=== PATIENT | female | born 1985 | race African-American/Black ===

== ENCOUNTER 2016-11-19 16:04 | Emergency (ER) | payer OTHER ==
[2016-11-19] MEDS ORDERED: ASPIRIN PO STA (16:32)
[2016-11-19 17:16] LABS: MANUAL DIFF NEEDED? NO
[2016-11-19 17:18] LABS: BASO% 0.1 % (0.0-0.8); HEMATOCRIT 38.2 % (37.0-47.0); IMM GRAN# 0.01 X1000 (0.0-0.04); IMM GRAN% 0.1 % (0.0-0.5); LYMPH# 2.05 X1000 (1.2-3.4); LYMPH% 18.5 % (20.5-51.1); MCH 29.3 PG (27-31); MCV 86.2 FL (81-99); MONO# 0.27 X1000 (0.11-0.59); MONO% 2.4 % (1.7-9.3); MPV 10.2 FL (7.4-10.4); NEUT% 78.9 % (42.2-75.2); PLT 287 X1000 (130-400); RBC 4.43 XMIL (4.2-5.4)
[2016-11-19 17:42] LABS: AGAP 12; ALBUMIN 4.4 g/dL (3.5-5.0); ALKALINE PHOSPHATASE 53 U/L (32-104); BUN 6 mg/dL (8-22); CALCIUM 9.6 mg/dL (8.8-10.2); CHLORIDE 94 mmol/L (98-107); CK PROFILE 50 U/L (24-173); COSMO 269; GOT 19 U/L (10-30); GPT 28 U/L (10-36); POTASSIUM 4.2 mmol/L (3.5-5.1); SODIUM 132 mmol/L (136-145); TCO2 26 mmol/L (25-35); TOTAL PROTEIN 8.6 g/dL (6.3-8.3)
--- NOTE | 2016-11-19 17:52 | ED EKG INTERP ---
EKG Interpretation - EKG Time of EKG reading by physician:: 16:55 EKG Read and Signed by:: Rogerio Jose EKG Interpretation (*Must complete 3 of following elements*): Normal Rate: 89 Rhythm: NSR [place]: normal QRS: normal [place] Interval: normal ST Wave: normal Attestation - Scribe Verification/Attestation Scribe:: Kirk Antoine Acting as Scribe for:: Rogerio Jose Scribe documention review:: This chart was documented by a scribe and accurately reflects the service the provider performed and the decisions made by the provider.
--- NOTE | 2016-11-19 18:52 | EKG Report ---
Test Performed on : 11/19/2016 4:49:12 PM Test Reason : CP Blood Pressure : / mmHG Vent. Rate : 089 BPM Atrial Rate : 089 BPM P-R Int : 160 ms QRS Dur : 066 ms QT Int : 364 ms P-R-T Axes : 066 086 022 degrees QTc Int : 442 ms Normal sinus rhythm. Normal ECG When compared with ECG of 14-OCT-2015 14:22, No significant change was found Unconfirmed Result
--- NOTE | 2016-11-19 19:13 | PROVIDER DOCUMENTATION ---
HPI-General Adult - General Chief Complaint: Nausea/Vomiting Stated Complaint: SOB V/N/D HEADACHE Time Seen by Provider: 11/19/16 18:59 Allergies/Adverse Reactions: Patient Allergies Allergy/AdvReac Type Severity Reaction Status Date / Time diphenhydramine HCl * AdvReac Unknown Verified 11/19/16 16:28 [From Benadryl] Home Medications: Methotrexate 20 mg PO 11/19/16 Prednisone 20 mg PO DAILY 11/19/16 - History of Present Illness -Gen Adult Nature of Presenting Problems: 31 YOBLKF PRESENTS TO ED WITH C/O PT STATES C/P VOMITING X 2 DAYS. PT STATES VOMITING FOR 1 DAY. PT STATES C/P IS MORE BURNING TODAY. PT STATES 1 EPISODE OF VOMIT TODAY AND 3 OR 4 EPISODES OF DIARRHEA TODAY. PT STATES NOTHING TO EAT TODAY. PRESENTS EPIGASTRIC TENDERNESS. Location of Pain/Injury: reports: generalized Pain Radiation: reports: no radiation Quality of Pain: reports: aching, burning Severity: reports: mild Onset/Duration: reports: 2 days ago Timing: reports: still present Context/Activities at Onset: reports: light activity Modifying Factors: improves with: nothing Associated Symptoms: reports: chest pain (BURNING NOW), diarrhea, nausea, vomiting Similar Symptoms Previously?: No Recently seen or treated by another doctor?: No Review of Systems - Adult - REVIEW OF SYSTEMS - ADULT Constitutional: denies: chills, fever Eyes: reports: no symptoms reported Ears, Nose, Mouth & Throat: reports: no symptoms reported Cardiovascular: reports: chest pain (BURNING). denies: palpitations, syncope Respiratory: denies: cough, shortness of breath, wheezing Gastrointestinal: reports: abdominal pain, diarrhea, nausea, vomiting Genitourinary: reports: no symptoms reported Musculoskeletal: denies: back pain, neck pain Integumentary: reports: no symptoms reported Neurological: denies: dizziness/vertigo, headache/migraines, syncope Psychiatric: reports: no symptoms reported Endocrine: reports: no symptoms reported Hematologic/Lymphatic: reports: no symptoms reported Allergic/Immunologic: reports: no symptoms reported All Other Systems: Reviewed and Negative Past History - Adult - PAST MEDICAL HISTORY-ADULT Review of Records: reports: Nursing Assessment Review, Medications Reviewed Endocrine/Immune: reports: Diabetes - PRIOR SURGERIES/PROCEDURES Surgical/Procedure History: reports: none - IMMUNIZATION STATUS Childhood Immunizations: See Nurse Assessment Flu Vaccine: See Nurse Assessment - SOCIAL HISTORY Smoking: quit greater than 1 year, cigarettes Substance Use: alcohol, marijuana Alcohol Use Frequency: occasionally Living Situation: family Physical Exam-General - CONSTITUTIONAL General Appearance: alert, mild distress - EYES Eyes: PERRL/EOMI, pink conjunctivae - HEAD, EARS, NOSE, MOUTH & THROAT HENMT: normocephalic/atraumatic, moist mucous membranes - NECK Neck: non-tender, full range of motion, supple - RESPIRATORY Respiratory: chest non-tender, lungs clear, normal breath sounds - CARDIOVASCULAR Cardiovascular: normal peripheral pulses, regular rate, rhythm - GASTROINTESTINAL (ABDOMEN) Abdominal Exam: normal bowel sounds, soft, tenderness (EPIGASTRIC) - LYMPHATIC Lymphatic: no adenopathy - MUSCULOSKELETAL Back Exam: normal inspection, no CVA tenderness, no vertebral tenderness Extremity: normal range of motion, non-tender - SKIN Integumentary: normal color, normal turgor, warm/dry - NEUROLOGIC Neurologic: grossly normal - PSYCHIATRIC Psych/Mental Status: oriented x 3 Progress - XRAY 1 XRAY: Bilateral XRAY Study: Chest XRAY Interpretation: NAD Departure - Departure Time of Disposition Order: 21:43 DIAGNOSIS: Poorly controlled diabetes mellitus, Gastroenteritis Disposition: HOME 01 Certified Medical Emergency: Emergent Condition: Fair Additional Instructions: ED Follow Up Instructions: You have been treated by a care provider in the Emergency Department. These instructions are being provided to you so you can have an understanding of how to care for yourself upon discharge. Upon discharge from the Emergency Department, you are responsible for making arrangements for follow-up care by a physician of your choice. Take all prescribed medications as directed. Return to the Emergency Department immediately for any new or worsening symptoms. You may call the Physician Referral phone number at [phone] to obtain a list of Physicians who are taking new patients.see family doctor as scheduled. Limit starches and sugars in diet. Eat mostly vegetables (NOT corn potatoes), beans, lean meat and fresh fruit (not bananas) Prescriptions: Ciprofloxacin HCl [Cipro] 500 mg PO BID #14 tablet Metformin HCl [Glucophage] 1,000 mg PO BID #60 tablet Glyburide 2.5 mg PO QAM #30 tablet Diphenoxylate/Atropine [Lomotil] 1 - 2 each PO Q6H PRN PRN #20 tablet PRN Reason: Diarrhea Promethazine [Phenergan] 1 - 2 tab PO Q6H PRN PRN #18 tablet PRN Reason: Vomiting Ondansetron HCl [Zofran] 1 - 2 tab PO Q6H PRN PRN #15 tablet PRN Reason: Vomiting Referrals: None,PCP [Primary Care Provider] - Forms: Return to School/Parent Work Instructions: Ondansetron tablets, Atropine; Diphenoxylate tablets, Promethazine tablets, Metformin tablets, Glyburide tablets, Ciprofloxacin tablets Attestation - Scribe Verification/Attestation Scribe:: Tyson Ennis Acting as Scribe for:: Augustin Bose Scribe documention review:: This chart was documented by a scribe and accurately reflects the service the provider performed and the decisions made by the provider.
[2016-11-19] MEDS ORDERED: NS 1,000 ML IV PRN (19:20)
[2016-11-19] MEDS ORDERED: SODIUM CHLORIDE 0.9% INJ ONE ×2 (19:20→19:22)
[2016-11-19] MEDS ORDERED: TORADOL IV ONE (19:20)
[2016-11-19] MEDS ORDERED: PHENERGAN IV ONE (19:20)
[2016-11-19] MEDS ORDERED: PEPCID IV ONE (19:22)
[2016-11-19] MEDS ORDERED: LOMOTIL PO ONE (19:22)
[2016-11-19] MEDS ORDERED: LEVAQUIN PO ONE (20:12)
[2016-11-19 20:19] LABS: URINE CULTURE PL NEEDED? NO; URINE SOURCE CLEAN CATCH
[2016-11-19 20:33] LABS: HEMOGLOBIN A1C 8.1 % (4.8-6.0)
[2016-11-19 20:36] LABS: BILIRUBIN URINE NEGATIVE (NEGATIVE); BLOOD URINE NEGATIVE (NEGATIVE); CLARITY CLEAR (CLEAR); COLOR YELLOW; GLUCOSE URINE NEGATIVE (NEGATIVE); LEUKOCYTES URINE NEGATIVE (NEGATIVE); NITRITE URINE NEGATIVE (NEGATIVE); PROTEIN URINE NEGATIVE (NEGATIVE); SP GRAVITY URINE 1.005; UROBILINOGEN URINE NORMAL
[2016-11-19 20:41] LABS: URINE EPITHELIAL CELLS <10 /HPF (<10); URINE RBC <10 /HPF (<10); URINE WBC <10 /HPF (<10)
[2016-11-19] MEDS ORDERED: MORPHINE IV ONE (21:20)
[2016-11-19] MEDS ORDERED: GLUCOPHAGE PO ONE (21:20)
[2016-11-19 22:05] VITALS: BP 158/97
--- NOTE | 2016-11-20 09:06 | Diag Imaging Result Document ---
PROCEDURE NAME: CHEST-2 VIEWS - 11/19/2016 CHEST, TWO VIEWS: COMPARISON: 04/02/2016. INDICATION: Shortness of breath. FINDINGS: A linear metallic density projects over the mid neck. The cardiomediastinal silhouette is within Normal limits. There is evidence of previous granulomatous infection. No acute infiltrate or effusion is appreciated. IMPRESSION: No acute cardiopulmonary abnormality.
== END 2016-11-19 22:05 | disposition home or self-care (01) ==
LOC: P.ED 16:04
DX: K52.9 Noninfective gastroenteritis and colitis, unspecified (principal); E11.65 Type 2 diabetes mellitus with hyperglycemia; R11.2 Nausea with vomiting, unspecified; R07.89 Other chest pain; R19.7 Diarrhea, unspecified; R10.816 Epigastric abdominal tenderness; R06.02 Shortness of breath; R51 Headache; Z79.52 Long term (current) use of systemic steroids; Z79.899 Other long term (current) drug therapy; Z87.891 Personal history of nicotine dependence
CPT/HCPCS: 71020; 80053; 81001; 82550; 83036; 83880; 84484; 85025; 93005; 96361; 96374; 96375; J1885; J2270; J2550; J7030

== ENCOUNTER 2017-01-14 23:13 | Inpatient (IN) ==
[2017-01-14] MEDS ORDERED: ZOFRAN IV ONE (23:41)
[2017-01-14] MEDS ORDERED: TYLENOL PO ONE (23:41)
[2017-01-14] MEDS ORDERED: DILAUDID IV ONE (23:41)
[2017-01-14] MEDS ORDERED: NS 1,000 ML IV ONE (23:42)
--- NOTE | 2017-01-14 23:45 | PROVIDER DOCUMENTATION ---
HPI-General Adult - General Source: patient - History of Present Illness -Gen Adult Nature of Presenting Problems: 31 year old F presents to the ED via EMS. Pt states that she began developing multiple pustules to bilateral arms and legs 1 week ago. PT bagen today with a fever and body aches. PT states that she has some kind of autoimmune disease that she can not remember the name of. Pt states that she was to follow up with her PCP in [place] but was unable to due to her car not working. Location of Pain/Injury: reports: none Pain Radiation: reports: no radiation Quality of Pain: reports: aching Severity: reports: mild Onset/Duration: reports: 1 week ago Timing: reports: still present Context/Activities at Onset: reports: none Modifying Factors: improves with: nothing Associated Symptoms: reports: fever/chills, muscle aches Similar Symptoms Previously?: No Recently seen or treated by another doctor?: No <Argelia Carlson - Last Filed: 01/14/17 23:40> <Brian Chin - Last Filed: 01/15/17 01:47> - General Chief Complaint: Shortness of Breath Stated Complaint: sob, generalized pain throughout entire body Time Seen by Provider: 01/14/17 23:18 Allergies/Adverse Reactions: Patient Allergies Allergy/AdvReac Type Severity Reaction Status Date / Time diphenhydramine HCl * AdvReac Unknown Verified 01/14/17 23:37 [From Rhina] Home Medications: Home Medication List Medication Instructions Recorded Confirmed Last Taken Type Metformin [Glucophage] 1,000 mg PO BID CC #120 tablet 06/19/15 04/02/16 Rx Methotrexate 20 mg PO 11/19/16 01/14/17 History Prednisone 20 mg PO DAILY 11/19/16 11/19/16 01/14/17 History Furosemide [Lasix] 1 tab PO DAILY 01/14/17 01/14/17 01/14/17 History Review of Systems - Adult - REVIEW OF SYSTEMS - ADULT Constitutional: reports: fever. denies: chills Eyes: reports: no symptoms reported Ears, Nose, Mouth & Throat: denies: ear pain, throat pain Cardiovascular: reports: no symptoms reported Respiratory: reports: no symptoms reported Gastrointestinal: denies: nausea, vomiting Genitourinary: reports: no symptoms reported Musculoskeletal: reports: no symptoms reported Integumentary: reports: skin sores/ulcer. denies: skin thickening Neurological: denies: dizziness/vertigo, headache/migraines Psychiatric: reports: no symptoms reported Endocrine: reports: no symptoms reported Hematologic/Lymphatic: reports: no symptoms reported Allergic/Immunologic: reports: no symptoms reported All Other Systems: Reviewed and Negative <Argelia Carlson - Last Filed: 01/14/17 23:40> Past History - Adult - PAST MEDICAL HISTORY-ADULT Review of Records: reports: Nursing Assessment Review, Medications Reviewed Major Childhood Illnesses: reports: denies history Endocrine/Immune: reports: Diabetes Additional History: auto immune inflammatory disease - PRIOR SURGERIES/PROCEDURES Surgical/Procedure History: reports: none - IMMUNIZATION STATUS Childhood Immunizations: See Nurse Assessment Flu Vaccine: See Nurse Assessment - SOCIAL HISTORY Smoking: quit greater than 1 year Substance Use: none presently/history of abuse Alcohol Use Frequency: occasionally <Argelia Carlson - Last Filed: 01/14/17 23:40> Physical Exam-General - PHYSICAL EXAM-ADULT Initial Vital Signs Reviewed: Yes - CONSTITUTIONAL General Appearance: appears well, alert, no apparent distress, obese (morbidly obese) - RESPIRATORY Respiratory: chest non-tender, lungs clear, normal breath sounds - CARDIOVASCULAR Cardiovascular: normal peripheral pulses, no edema, tachycardia - GASTROINTESTINAL (ABDOMEN) Abdominal Exam: non tender, soft - SKIN Integumentary: other (multiple pustules to arms and legs) - PSYCHIATRIC Psych/Mental Status: normal mood/affect, normal thought content, normal thought process, oriented x 3 <Argelia Carlson - Last Filed: 01/14/17 23:40> Departure <Argelia Carlson - Last Filed: 01/14/17 23:40> - Departure Time of Disposition Order: 01:46 Certified Medical Emergency: Emergent <Brian Chin - Last Filed: 01/15/17 01:47> - Departure DIAGNOSIS: Pustular dermatitis Disposition: ADMITTED INPATIENT 09 Condition: Fair Attestation - Scribe Verification/Attestation Scribe:: Argelia Carlson Acting as Scribe for:: Brian Chin Scribe documention review:: This chart was documented by a scribe and accurately reflects the service the provider performed and the decisions made by the provider. <Argelia Carlson - Last Filed: 01/14/17 23:40> Physician Attestation - Physician Attestation I, the provider, attest to the following statement:: Brian Chin Physician documentation Attestation:: This documentation recorded by the scribe accurately reflects the service I personally performed and the decisions made by me. <Argelia Carlson - Last Filed: 01/14/17 23:40>
[2017-01-15 00:01] LABS: BASO% 0.1 % (0.0-0.8); EOS# 0.03 X1000 (0.0-0.7); EOS% 0.1 % (0.0-10.0); HEMATOCRIT 33.1 % (37.0-47.0); IMM GRAN% 0.5 % (0.0-0.5); LYMPH# 3.29 X1000 (1.2-3.4); LYMPH% 15.1 % (20.5-51.1); MANUAL DIFF NEEDED? YES; MCH 27.6 PG (27-31); MCHC 33.2 g/dL (33-37); MCV 83.2 FL (81-99); MONO# 1.04 X1000 (0.11-0.59); MONO% 4.8 % (1.7-9.3); MPV 10.4 FL (7.4-10.4); NEUT% 79.4 % (42.2-75.2); PLT 444 X1000 (130-400); RBC 3.98 XMIL (4.2-5.4)
[2017-01-15 00:09] LABS: INR 1.15 (0.86-1.15)
[2017-01-15 00:10] LABS: PTT PL 39.4 Seconds (22.6-43.9)
[2017-01-15 00:11] LABS: BE 3.4 mmoll (-3.0-3.0); BLOOD TYPE ARTERIAL; METHB 1.3 % (0.0-1.5); O2(CT) 14.1 mL/dL (15.0-23.0); PCO2(98.6) 34 mmHg (35-45); PO2(98.6) 63 mmHg (60-100); SAMPLE BLOOD; SAO2 93.9 % (95.0-100.0)
[2017-01-15] MEDS ORDERED: DILAUDID IV ONE ×2 (00:15→01:20)
[2017-01-15] MEDS ORDERED: LOPRESSOR 10 MG in NS 50 ML IV ONE (00:16)
[2017-01-15 00:19] LABS: ALLEN TEST NO; DRAW SITE R BRACHIAL; MODALITY ROOM AIR
[2017-01-15] MEDS ORDERED: LOPRESSOR ONE (00:19)
[2017-01-15] MEDS ORDERED: NS 50 ML ONE (00:20)
[2017-01-15 00:30] LABS: BANDS 1 % (0-1); LYMPHS 14 % (21-51); MONO 5 % (1-9)
[2017-01-15 00:42] LABS: AGAP 20; ALBUMIN 3.7 g/dL (3.5-5.0); ALKALINE PHOSPHATASE 84 U/L (32-104); BUN 7 mg/dL (8-22); CALCIUM 9.4 mg/dL (8.8-10.2); CHLORIDE 85 mmol/L (98-107); CK PROFILE 573 U/L (24-173); COSMO 261; GOT 27 U/L (10-30); GPT 24 U/L (10-36); POTASSIUM 4.3 mmol/L (3.5-5.1); SODIUM 129 mmol/L (136-145); TCO2 25 mmol/L (25-35); TOTAL PROTEIN 8.5 g/dL (6.3-8.3)
[2017-01-15] MEDS ORDERED: ZOSYN 3.375 GM/NS 50 ML IV ONE (00:44)
[2017-01-15] MEDS ORDERED: VANCOMYCIN 1 GM/NS 250 ML IV ONE (00:45)
[2017-01-15 00:58] LABS: CK INDEX 0.2 (0.0-2.5)
[2017-01-15 01:13] LABS: URINE SOURCE CATH
[2017-01-15] MEDS ORDERED: TORADOL IV ONE (01:20)
[2017-01-15 01:41] LABS: BILIRUBIN URINE NEGATIVE (NEGATIVE); BLOOD URINE 2+ (NEGATIVE); CLARITY CLEAR (CLEAR); COLOR YELLOW; GLUCOSE URINE NEGATIVE (NEGATIVE); LEUKOCYTES URINE NEGATIVE (NEGATIVE); NITRITE URINE NEGATIVE (NEGATIVE); PROTEIN URINE TRACE mg/dL (NEGATIVE); UROBILINOGEN URINE NORMAL
[2017-01-15 01:44] LABS: URINE CULTURE PL NEEDED? YES; URINE EPITHELIAL CELLS <10 /HPF (<10); URINE RBC <10 /HPF (<10); URINE WBC <10 /HPF (<10)
[2017-01-15] MEDS ORDERED: NS 1,000 ML IV ONE (02:19)
[2017-01-15] MEDS ORDERED: TYLENOL PO PRN (03:17)
[2017-01-15] MEDS ORDERED: DILAUDID IV PRN (03:17)
[2017-01-15] MEDS ORDERED: DILAUDID ONE (06:33)
--- NOTE | 2017-01-15 08:32 | Diag Imaging Result Document ---
PROCEDURE NAME: CHEST-PORTABLE - 01/14/2017 CHEST, SINGLE VIEW: INDICATION: Fever. COMPARISON: 11/19/2016. FINDINGS: There has been a suboptimal inspiratory result. The heart size is within normal limits. No infiltrates or effusions are appreciated. There is linear scarring in the left mid lung zone. IMPRESSION: No acute abnormalities.
[2017-01-15] MEDS ORDERED: FLUZONE QUAD 2016-2017 SYRINGE IM ONE (08:36)
[2017-01-15] MEDS ORDERED: PNEUMOVAX 23 IM ONE (08:36)
[2017-01-15] MEDS: GLUCOPHAGE PO SCH ×2 (09:04→16:47)
[2017-01-15] MEDS: LASIX PO SCH (09:04)
[2017-01-15] MEDS: PREDNISONE PO SCH (09:04)
[2017-01-15] MEDS: TORADOL IV PRN (09:04)
[2017-01-15] MEDS ORDERED: VANCOMYCIN IV PER PHARMACY MISC SCH (10:15)
[2017-01-15] MEDS: ZOSYN 3.375 GM/NS 50 ML IV SCH ×3 (10:57→21:14)
--- NOTE | 2017-01-15 12:04 | HISTORY AND PHYSICAL ---
CHIEF COMPLAINT: Shortness of breath. HISTORY OF PRESENT ILLNESS: This is a 31-year-old female with a chronic autoimmune disease that is not quite characterized. She is on methotrexate and prednisone. She is followed by rheumatology in [place], apparently Dr. Godinez as well, although I do not think she has seen him frequently. 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 She came in because of the shortness of breath and pain in her left leg. Workup in the ER was really unremarkable except she has a diffuse rash, pustular rash over both arms, lower extremities, mostly anterior, upper chest, upper back. Apparently she has had this before associated with her other medications. She has had some subjective fevers and chills and again the shortness of breath without cough and without chest pain. Again, workup in the ER was unremarkable as far as labs except for a white count of 21,000, a little bit of a low sodium at 129. The rest of her laboratory work was unrevealing. The patient was admitted for diffuse pustular rash with cellulitis. PAST MEDICAL HISTORY: 1. 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 We are trying to get old records from [facility]. 2. Diabetes. 3. Hypertension. 4. Morbid obesity. 5. No history of heart failure that I am aware. FAMILY HISTORY: Positive for diabetes and hypertension. SOCIAL HISTORY: No tobacco or ethanol. She lives with her sister. I do not think she is working regularly at this point. I think limited because of her autoimmune issues. ALLERGIES: Benadryl apparently. MEDICATIONS: She is on methotrexate 2.5 daily. She is on prednisone 20 daily, metformin 1 g b.i.d., lisinopril 10 daily, Lasix 20 daily. PAST SURGICAL HISTORY: Denies. REVIEW OF SYSTEMS: Otherwise negative x10 point. PHYSICAL EXAMINATION: VITAL SIGNS: Blood pressure 136/79, heart rate 65, respiratory rate 18, temperature 98.9 degrees, 100% on 2 L. GENERAL: Obese female in mild distress secondary to pain and just overall anxiety. EYES: Pupils equal, round, reactive to light. Extraocular movements intact. EARS, NOSE, THROAT: Moist mucous membranes. NECK: Supple. CARDIOVASCULAR: Regular rate and rhythm. No murmurs, gallops, or rubs. PULMONARY: Bilateral breath sounds. Clear to auscultation. GI: Soft, nontender, nondistended. Bowel sounds are positive. EXTREMITIES: No clubbing or cyanosis. LYMPHATICS: No peripheral edema. NEUROLOGICAL: Nonfocal. LABORATORY DATA: Sodium 129. Creatine kinase 573. White count is 21,000, hemoglobin and hematocrit of 11 and 33, platelets of 444,000. Urine was clear. Blood gas: She was not hypoxic. PaO2 63 on room air with a saturation of 94%. Interesting BRIDGER and rheumatoid factor have been negative. Chest x-ray was clear. PROBLEM LIST: 1. This is a 31-year-old female on chronic steroids, who presents with a diffuse pustular rash which is likely a secondary infection. I do not think it is a primary immunological phenomenon. It just looks like folliculitis, although fairly diffuse. Some of the lesions are umbilicating which would suggest other things such as nummular eczema but it is most likely a staphylococcal infection. We will continue antibiotics. She has been started on vancomycin and Zosyn. Continue pain control, wound care, and we will follow clinically. 2. Diabetes. We will continue to follow blood sugars, sliding scale. Continue her metformin and monitor. 3. Hypertension. Appears to be stable. We will continue regular medications. 4. Her dyspnea issues, she is not hypoxic. Chest x-ray is clear. She does report some weakness on the left side and pain in the left leg, so we will continue to monitor that. We may consider if not much better to ultrasound her leg and will clinically follow.
[2017-01-15] MEDS: LOVENOX SUBQ SCH (14:24)
[2017-01-15] MEDS ORDERED: NS 500 ML ONE (14:29)
[2017-01-15] MEDS: DILAUDID IV PRN ×2 (14:32→21:22)
[2017-01-15] MEDS: VANCOMYCIN 2,000 MG in NS 500 ML IV SCH ×2 (14:32→23:13)
[2017-01-16] MEDS: DILAUDID IV PRN ×6 (03:37→21:33)
[2017-01-16] MEDS: ZOSYN 3.375 GM/NS 50 ML IV SCH ×4 (04:22→22:05)
[2017-01-16 06:19] LABS: HEMATOCRIT 27.1 % (37.0-47.0); HEMOGLOBIN 8.8 g/dL (12.0-16.0); MCH 27.6 PG (27-31); MCHC 32.5 g/dL (33-37); MPV 10.2 FL (7.4-10.4); RBC 3.19 XMIL (4.2-5.4)
[2017-01-16 06:50] LABS: AGAP 11; BUN 7 mg/dL (8-22); CALCIUM 8.9 mg/dL (8.8-10.2); CHLORIDE 95 mmol/L (98-107); COSMO 262; POTASSIUM 3.6 mmol/L (3.5-5.1); SODIUM 131 mmol/L (136-145); TCO2 25 mmol/L (25-35)
[2017-01-16] MEDS ORDERED: PRINIVIL PO SCH (09:00)
[2017-01-16] MEDS: TORADOL IV PRN ×2 (09:33→15:15)
[2017-01-16] MEDS: PREDNISONE PO SCH (09:34)
[2017-01-16] MEDS: GLUCOPHAGE PO SCH ×2 (09:34→18:11)
[2017-01-16] MEDS: LASIX PO SCH ×2 (09:34→15:15)
[2017-01-16] MEDS ORDERED: NS 500 ML ONE (13:44)
[2017-01-16] MEDS ORDERED: PRINIVIL PO ONE (14:02)
--- NOTE | 2017-01-16 14:40 | PROGRESS NOTE ---
DATE: 01/16/2017 SUBJECTIVE: The patient has no focal complaints. OBJECTIVE: Vital Signs: Blood pressure 178/81, heart rate of 103, respiratory rate of 20, temperature 98.4 degrees. Cardiovascular: Regular rate and rhythm. Pulmonary: Bilateral breath sounds. Clear to auscultation. Gastrointestinal: Soft, nontender, nondistended. Bowel sounds are positive. Extremities: No clubbing or cyanosis. Lymphatics: No peripheral edema. Neurological: Nonfocal. LABORATORY DATA: Her white count is still elevated, but improved on antibiotics. White count is down to 16. Hemoglobin and hematocrit are 8 and 27, with normal indices. Chemistries are okay. PROBLEM LIST: 1. Pustular diffuse cellulitis mostly focused on her legs. Cultures have been obtained. Vancomycin and Zosyn are the antibiotics. Day 2 on each of those and we will continue to follow. 2. Autoimmune disease. I am still waiting on records. She is on prednisone and methotrexate. 3. Hypertension, which is not improved. We are going to increase her lisinopril to 20 daily and see how she does, and I am going to put in some p.r.n. clonidine. 4. Generalized weakness. She is very difficult to motivate. She will not get up out of bed. I do not know how much of this is psychological versus true weakness, but the patient will not even roll over. Granted, you know she is probably in some significant degree of discomfort. We will continue to follow. She is on prednisone, which she has been on a steady dose of that. I am awaiting records to see if we can titrate down on that at all.
[2017-01-16] MEDS: LOVENOX SUBQ SCH (15:18)
[2017-01-16] MEDS: VANCOMYCIN 2,000 MG in NS 500 ML IV SCH ×2 (15:55→23:13)
[2017-01-16] MEDS: PRINIVIL PO SCH (18:12)
[2017-01-17] MEDS: VANCOMYCIN 2,000 MG in NS 500 ML IV SCH ×4 (01:05→18:39)
[2017-01-17] MEDS: ZOSYN 3.375 GM/NS 50 ML IV SCH ×2 (04:08→13:26)
[2017-01-17] MEDS: DILAUDID IV PRN ×5 (04:08→20:11)
[2017-01-17 06:29] LABS: AGAP 11; BUN 6 mg/dL (8-22); CALCIUM 8.8 mg/dL (8.8-10.2); CHLORIDE 97 mmol/L (98-107); COSMO 268; POTASSIUM 3.7 mmol/L (3.5-5.1); SODIUM 135 mmol/L (136-145); TCO2 26 mmol/L (25-35)
[2017-01-17 06:47] LABS: HEMATOCRIT 27.8 % (37.0-47.0); HEMOGLOBIN 9.1 g/dL (12.0-16.0); MCH 27.7 PG (27-31); MCHC 32.7 g/dL (33-37); MCV 84.5 FL (81-99); MPV 10.1 FL (7.4-10.4); RBC 3.29 XMIL (4.2-5.4)
[2017-01-17] MEDS: GLUCOPHAGE PO SCH ×2 (08:24→20:49)
[2017-01-17] MEDS: LASIX PO SCH (08:24)
[2017-01-17] MEDS: PRINIVIL PO SCH (08:24)
[2017-01-17] MEDS: PREDNISONE PO SCH (08:24)
[2017-01-17] MEDS: TORADOL IV PRN ×2 (10:35→17:32)
[2017-01-17] MEDS: LOVENOX SUBQ SCH (13:25)
--- NOTE | 2017-01-17 15:47 | CONSULTATION ---
DATE OF CONSULTATION: 01/17/2017 CONCLUSION: The patient has a history of a chronic autoimmune disease for which she is on immunosuppressive therapy. She is admitted to the hospital with a gram-positive coccal bacteremia and also gram positive cocci have been isolated from her pustular lesions thus it would seem as though the bacteremia originates from these lesions and the lesions probably represent her autoimmune disease that she is on immunosuppressive therapy for. RECOMMENDATIONS: I agree with the decision to treat the patient with vancomycin. I am going to repeat the blood cultures and if they are sterile, then I think a PICC can be put in and possibly the patient can complete her treatment at home. I am going to order immunoglobulin levels and a urinary test also. DISCUSSION: This patient tells me that she has a 2-week history of having fever and a pustular rash. She also is much weaker. She told me that she had a similar episode 2-3 years ago. The patient has multiple pustular lesions. [place] [address], hemoglobin 9.1, and platelet count 351,000. Her creatinine is 0.3. GFR is greater than 60. Liver function studies are normal. CPK is 571. The patient's urinalysis shows bacteria but no white cells. Chest x-ray shows no acute disease. Blood and wound cultures are growing gram positive cocci. Urine culture is negative thus far. PAST MEDICAL HISTORY/REVIEW OF SYSTEMS: Eyes and Ears: She denies difficulty hearing or seeing. Neck: No stiffness. Respiratory: She does have some dyspnea on exertion especially when she uses her walker. Cardiac: No chest pain or palpitations. GI: No nausea, vomiting, or diarrhea. : No dysuria or flank pain. Integument: Patient has a diffuse pustular rash as mentioned above. Neurologic: The patient tells me that her left side is weaker than her right side. She does not have seizures. 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 Her last menstrual period was on January 04. She is not on any control device or medication. PREVIOUS HOSPITALIZATIONS AND OPERATIONS: Patient had an admission for a similar episode that she came in with this time. MEDICAL DISEASES: Patient has a chronic autoimmune disease and is on immunosuppressive therapy for it. She has diabetes, hypertension and morbid obesity. INFECTIOUS DISEASE HISTORY: Positive for an infection similar to the 1 she has now on admission. She does not remember having pneumonia or urinary tract infection. FAMILY HISTORY: Positive for diabetes mellitus, hypertension, myocardial infarction, and cancer. SOCIAL HISTORY: [place] She does not drink or smoke or do drugs. She lives with her sister. She has a dog as a pet. She is disabled. ALLERGIES: She is allergic to Benadryl. HOME MEDICATIONS: Include methotrexate, prednisone, metformin, lisinopril and Lasix. PHYSICAL EXAMINATION: Temperature is 99.2 degrees, pulse 102, respirations 18. Her blood pressure is 109/47. Her weight is 285 pounds. Generally: This is a morbidly obese, young female. She is in no acute distress. Head, eyes, ears, nose, and throat: Her tongue has been pierced. Also there is an area on her lower part of her face where it has also. Lung: Clear to auscultation. Cardiovascular: Regular heart rate. Bilateral leg edema. There were diminished peripheral pulses. This may be because of the patient's edema. Abdomen: Soft and nontender. Neurologic: Patient is awake. She can move her extremities. There is no tremor. Her sensation is intact to touch. Her memory, as regarding her medical history, was slightly diminished. Thank you for the consult.
--- NOTE | 2017-01-17 16:11 | PROGRESS NOTE ---
DATE: 01/17/2017 SUBJECTIVE: The patient has no focal complaints. She is still tearful just overall uncomfortable. OBJECTIVE: Vital Signs: Blood pressure 109/47, heart rate 102, respiratory rate 18, temperature 99.2 degrees, 98% on 2 L. Cardiovascular: Regular rate and rhythm. Pulmonary: Bilateral breath sounds. Clear to auscultation. GI: Soft, nontender, nondistended. Bowel sounds are positive. LABORATORY DATA: White count 12, hemoglobin and hematocrit 9 and 27. Platelets 351,000. Chemistries looked okay. Micro: She actually had a positive blood culture on the .. PROBLEM LIST: 1. Diffuse pustular folliculitis likely Staphylococcus aureus infection. Continue vancomycin and follow. 2. Bacteremia presumably secondary to a skin infection. We will continue to monitor. She will likely need IV antibiotics because she has a bacteremia which is presumably Staphylococcus aureus but we do not have sensitivities yet so I am still waiting on ultimate sensitivities because she may need further evaluation. 3. Diabetes. We will continue her treatments. 4. She has a seronegative arthropathy. I am not completely sure what, but that is why she is on steroids methotrexate. I am going to decrease her to prednisone just because she has significant infection and I do not want her to suppress her immune system further. 5. Disposition pending clearance of bacteremia and final identification of organism because she may need home IV antibiotics.
[2017-01-18] MEDS: VANCOMYCIN 2,000 MG in NS 500 ML IV SCH ×2 (05:05→18:32)
[2017-01-18] MEDS: DILAUDID IV PRN ×4 (05:19→18:32)
[2017-01-18 07:40] LABS: HEMATOCRIT 25.6 % (37.0-47.0); HEMOGLOBIN 8.3 g/dL (12.0-16.0); MCH 27.3 PG (27-31); MCHC 32.4 g/dL (33-37); MCV 84.2 FL (81-99); MPV 9.9 FL (7.4-10.4); RBC 3.04 XMIL (4.2-5.4)
[2017-01-18] MEDS: PRINIVIL PO SCH (08:02)
[2017-01-18] MEDS: PREDNISONE PO SCH (08:02)
[2017-01-18] MEDS: LASIX PO SCH (08:02)
[2017-01-18] MEDS: GLUCOPHAGE PO SCH ×2 (08:02→17:01)
[2017-01-18 08:03] LABS: CALCIUM 8.8 mg/dL (8.8-10.2); POTASSIUM 3.3 mmol/L (3.5-5.1)
[2017-01-18] MEDS: LOVENOX SUBQ SCH (11:12)
--- NOTE | 2017-01-18 14:19 | PROGRESS NOTE ---
DATE: 01/18/2017 SUBJECTIVE: The patient has no complaints. OBJECTIVE: Vital Signs: Blood pressure 125/61, heart rate of 91, respiratory rate 20, temperature 97.7 degrees, 98% on 2L. Cardiovascular: Regular rate and rhythm. Pulmonary: Bilateral breath sounds. Clear to auscultation. Gastrointestinal: Soft, nontender, nondistended. Bowel sounds are positive. Extremities: She still has numerous pustules, upper extremities and lower extremities, in various stages of healing. Some of them have ruptured and are healing. Some were still active. LABORATORY DATA: Her white count is down to 10, which is down from 21,000. Hemoglobin and hematocrit are 8 and 25, platelets 294,000. Chemistries: Potassium 3.3, creatinine 1.3, which is a big jump from admission. PROBLEM LIST: 1. Pustular cellulitis, which is felt to be a folliculitis associated with a methicillin- resistant Staphylococcus epidermidis infection. I do not think this is a contaminant. I think she actually has bacteremia just from diffuse folliculitis. She is on chronic immunosuppressive therapy, but also I do not think she is quite keeping up with her hygiene, unfortunately, because of weakness and possibly other factors. In any case, she is responding to antibiotic. Repeat blood culture is negative. Plan is for PICC, I think, at home. We will see what Dr. Sultana says as final recommendations on Friday. We will continue vancomycin for the time being. Seems to be stable. 2. Acute kidney injury. She is on lisinopril, Lasix, and Toradol. We are going to stop all those, start hydration. I am going to check her urine electrolytes and I guess we will bladder scan her, although she has a Duncan. Her ins and outs are overall negative. We have been giving her Lasix just orally and I think that actually is a home medication, just because of persistent edema, but now she has had a bump in her creatinine, so we are going to watch that. 3. Diabetes that appears to be well controlled, generally speaking. Some sugars in the 200 range. 4. Seronegative arthropathy. She is on her methotrexate and prednisone. I did decrease the prednisone to 10 just because of concern over immunosuppression. DISPOSITION: The MATHEMATICAL ENGINEER and I had a long discussion with her about participation in her care, which at this point is really trying to get a good personal hygiene regimen just so we can help with maintaining skin cleanliness. She certainly has not been able to bathe herself since she has been here and it is very difficult to ascertain how much she is pushing herself to participate in her care versus true weakness. There may be some underlying psychiatric issues such as depression or amotivational syndrome. She will participate in bathing and we are going to push her to try to get up and around today. I guess I will get a PT consult because we really cannot get her to move around much on her own. She is even using a bed caruso to go to the bathroom, which is unusual behavior for someone her age. In any case, the plan is for home IV therapy once we know her sterilization of blood is complete.
[2017-01-18] MEDS: NS 1,000 ML IV SCH (17:01)
[2017-01-18] MEDS: NORCO-10 PO PRN (17:01)
[2017-01-18 20:28] LABS: UR CREAT RANDOM 49.5 mg/dL (11-20)
[2017-01-19] MEDS: DILAUDID IV PRN ×3 (02:25→10:49)
[2017-01-19] MEDS: VANCOMYCIN 2,000 MG in NS 500 ML IV SCH (05:28)
[2017-01-19 06:50] LABS: HEMATOCRIT 26.3 % (37.0-47.0); HEMOGLOBIN 8.4 g/dL (12.0-16.0); MCH 26.7 PG (27-31); MCHC 31.9 g/dL (33-37); MCV 83.5 FL (81-99); MPV 10.1 FL (7.4-10.4); RBC 3.15 XMIL (4.2-5.4)
[2017-01-19 07:15] LABS: CALCIUM 8.4 mg/dL (8.8-10.2); POTASSIUM 3.4 mmol/L (3.5-5.1)
[2017-01-19] MEDS: PREDNISONE PO SCH (07:59)
[2017-01-19] MEDS: NS 1,000 ML IV SCH (07:59)
[2017-01-19] MEDS: GLUCOPHAGE PO SCH (07:59)
[2017-01-19] MEDS: NORCO-10 PO PRN ×3 (08:04→21:20)
[2017-01-19] MEDS: LOVENOX SUBQ SCH (12:11)
[2017-01-19] MEDS ORDERED: GENTAMICIN IV PER PHARMACY MISC SCH (13:00)
[2017-01-19] MEDS ORDERED: LASIX IM ONE (13:01)
[2017-01-19] MEDS ORDERED: NS 1,000 ML IV SCH (13:15)
[2017-01-19] MEDS: DOXYCYCLINE PO SCH ×2 (13:59→21:20)
--- NOTE | 2017-01-19 15:24 | PROGRESS NOTE ---
DATE: 01/19/2017 SUBJECTIVE: Patient has no complaints. OBJECTIVE: Vital signs: Blood pressure 134/66, heart rate of 101, respiratory rate of 19, temperature 99.2 degrees, 96% on 2 L. Cardiovascular: Regular rate and rhythm. Pulmonary: Bilateral breath sounds. Clear to auscultation. GI: Soft, nontender, nondistended. Bowel sounds are positive. Skin: She still has diffuse edema and diffuse pustular lesions. LABORATORY DATA: Potassium 3.4. Creatinine is up to 1.7 today and had been previously normal. PROBLEM LIST: 1. Pustular dermatitis, cellulitis. Continue vancomycin. We have lost IV access. So, I was going to give her gentamicin but with her renal insufficiency we will just give her doxycycline and see how she does. 2. I am going to continue IV fluids and follow. We have to hold her metformin now. We will check urine electrolytes and continue IV hydration. 3. Acute kidney injury. We will continue fluids. Check urine electrolytes and follow clinically. Renal ultrasound. 4. Diabetes. Appears to be stable. Continue medications and follow. I am going to hold her metformin because of her renal insufficiency. DISPOSITION: She will need home IV therapy and we will continue to follow.
[2017-01-20] MEDS: NORCO-10 PO PRN ×2 (05:09→10:21)
[2017-01-20 07:04] LABS: HEMATOCRIT 25.4 % (37.0-47.0); HEMOGLOBIN 8.1 g/dL (12.0-16.0); MCH 26.7 PG (27-31); MCHC 31.9 g/dL (33-37); MCV 83.8 FL (81-99); MPV 10.2 FL (7.4-10.4); RBC 3.03 XMIL (4.2-5.4)
[2017-01-20 07:15] LABS: CALCIUM 8.5 mg/dL (8.8-10.2); POTASSIUM 3.2 mmol/L (3.5-5.1)
[2017-01-20] MEDS ORDERED: NS 500 ML ONE (09:46)
[2017-01-20] MEDS ORDERED: DILAUDID IM ONE (09:55)
[2017-01-20 10:14] LABS: INR 1.35 (0.86-1.15); PROTIME 16.9 Seconds (12.1-15.5)
[2017-01-20] MEDS: DOXYCYCLINE PO SCH (11:01)
[2017-01-20] MEDS: PREDNISONE PO SCH (11:02)
[2017-01-20] MEDS: LOVENOX SUBQ SCH (11:02)
--- NOTE | 2017-01-20 11:40 | Diag Imaging Result Document ---
PROCEDURE NAME: CHEST-PORTABLE - 01/20/2017 PORTABLE CHEST, TWO VIEWS: COMPARISON: Compared to 01/15/2017. FINDINGS: A right-sided PICC line has been placed since the prior exam. The tip overlies the right atrium. The lungs are well expanded. The heart is not enlarged. The vessels are not distended. No pneumonia. No pleural effusions identified. IMPRESSION: Right-sided PICC line in good position.
--- NOTE | 2017-01-20 11:52 | PROGRESS NOTE ---
DATE: 01/20/2017 SUBJECTIVE: The patient has no complaints. She denies any chest pain, palpitations, shortness of breath, dizziness. OBJECTIVE: Vital Signs: Blood pressure is 148/68 with a heart rate of 98, respirations are 18, temperature is 98.8 degrees oral with oxygen saturations of 95 to 100% on 2 L nasal cannula. Cardiovascular: Regular rate and rhythm. S1 and S2 appreciated. Pulmonary: Breath sounds are clear. No increased work of breathing noted. Chest does rise and fall symmetrically with respiration. Gastrointestinal: Abdomen is large, soft, nontender, nondistended. Bowel sounds in all 4 quadrants. Skin: She still has diffuse edema with diffuse pustular lesions. LABS: WBC is 12.38, with hemoglobin 8.1, hematocrit 25.4, and platelets of 320,000. Sodium is 133, potassium 3.2, BUN 12, creatinine 1.7, with a glucose of 97. PROBLEM LIST: 1. Pustular dermatitis, cellulitis. We will continue with her vancomycin. We did lose IV access. A PICC will be placed today and then antibiotics will be restarted. 2. Acute kidney injury. Creatinine has slowly trended up. On the 3rd she was 0.3 and on the 4th, 5th, and 6th she was 1.3, 1.7, and 1.7. We will continue with IV hydration. Pharmacy will dose vancomycin. Urine electrolytes are pending. Renal ultrasound is pending. We will hold any renal toxic medications and dose any medications renally as appropriate. 3. Diabetes mellitus. This appears to be stable. We will continue with her current regimen. Holding her metformin. 4. Chronic autoimmune disease, possibly a mixed connective tissue disease causing reported left lower extremity weakness and pain. The patient states that she has not walked in a couple weeks due to this, that this is normal with this flare up. In the past once flare ups resolve she will be back at independent living with a front-wheeled walker. We will continue with physical therapy. Continue her prescribed medications. Dictated by DAVID Babcock for Jason Flood MD
--- NOTE | 2017-01-20 15:42 | Diag Imaging Result Document ---
PROCEDURE NAME: HEAD W/O CONTRAST - 01/20/2017 CT BRAIN WITHOUT CONTRAST. DOSE REDUCTION PROTOCOL. FINDINGS: No parenchymal hemorrhage. No epidural or subdural hematoma. No subarachnoid hemorrhage. No mass identified on this noncontrasted exam. No hydrocephalus. No sinus opacification. No air fluid levels. IMPRESSION: No hemorrhage. Normal brain CT without contrast.
--- NOTE | 2017-01-20 15:52 | Diag Imaging Result Document ---
PROCEDURE NAME: XRAY PELVIS W/HIP 2-3VW LT - 01/20/2017 PELVIS AND LEFT HIP, THREE VIEWS: FINDINGS: No fracture. No dislocation. No significant joint space narrowing. No bone remodeling. The appearance of the left hip is similar to that of the right. IMPRESSION: No acute abnormality.
[2017-01-20] MEDS: DILAUDID IV PRN ×2 (16:51→21:15)
[2017-01-20] MEDS: NS 1,000 ML IV SCH ×2 (16:51→21:15)
[2017-01-20] MEDS: ZOFRAN IV PRN ×2 (16:51→21:14)
[2017-01-20] MEDS ORDERED: KLOR-CON PO ONE (17:25)
[2017-01-20] MEDS: CUBICIN IV SCH (18:01)
[2017-01-20] MEDS: NS IV SCH (18:01)
[2017-01-21] MEDS: NS 1,000 ML IV SCH ×2 (03:49→22:07)
[2017-01-21] MEDS: ZOFRAN IV PRN (04:42)
[2017-01-21] MEDS: DILAUDID IV PRN ×4 (04:42→22:08)
[2017-01-21] MEDS: NORCO-10 PO PRN ×3 (06:50→23:57)
[2017-01-21 07:17] LABS: HEMATOCRIT 23.6 % (37.0-47.0); HEMOGLOBIN 7.7 g/dL (12.0-16.0); MCH 27.4 PG (27-31); MCHC 32.6 g/dL (33-37); MPV 10.1 FL (7.4-10.4); RBC 2.81 XMIL (4.2-5.4)
[2017-01-21 07:22] LABS: CALCIUM 8.6 mg/dL (8.8-10.2); POTASSIUM 3.3 mmol/L (3.5-5.1)
--- NOTE | 2017-01-21 09:21 | PROGRESS NOTE ---
DATE: 01/21/2017 SUBJECTIVE: The patient notes she was able to get up a little bit yesterday. She was able to sit in the chair. Denies any true chest pains or palpitations. Denies any fevers or chills. States that she is still having joint aches and pains but denies any shortness of breath or dizziness. PHYSICAL EXAMINATION: Vital Signs: Reviewed. Temperature 99 degrees, pulse 100, respiratory rate 18, BP 128/66, saturation 98% on room air. General: The patient is a well-developed female who is obese. She is in no respiratory distress. She is awake, alert. Neck: Supple. CV: Regular rate. Chest: Relatively clear. Abdomen: Soft, obese, nondistended. Extremities: Moves all extremities. Skin: She is noted to have diffuse edema in her bilateral upper and lower extremities with diffuse pustular lesions that do appear to be drying up. DIAGNOSTIC DATA: WBCs 10, hemoglobin and hematocrit 7 and 23. Potassium 3.3, creatinine 1.7. ASSESSMENT: 1. Acute renal failure. Her creatinine appears to be stable at 1.7, where it has been for the last couple of days. Uncertain etiology of this. Renal ultrasound is currently still pending. 2. Hip pain. Her hip x-ray was negative. 3. Pustular dermatitis. Continue vancomycin. Continue daptomycin. 4. Chronic autoimmune disease. As patient's pustular rash is improving, certainly may consider giving her a higher dose of steroids to see if this will help. PLAN: Hopefully, patient can be discharged home soon.
[2017-01-21] MEDS: SOLU-MEDROL IV SCH ×3 (10:24→23:49)
[2017-01-21] MEDS: MIRALAX PO SCH (10:24)
[2017-01-21] MEDS: PREDNISONE PO SCH (10:24)
[2017-01-21] MEDS: LOVENOX SUBQ SCH (10:24)
[2017-01-21] MEDS ORDERED: NS 500 ML IV ONE (11:39)
[2017-01-21] MEDS: CUBICIN IV SCH (15:50)
[2017-01-21] MEDS: NS IV SCH (15:50)
[2017-01-21] MEDS ORDERED: TYLENOL PO ONE (18:11)
[2017-01-21] MEDS ORDERED: NS 500 ML ONE (18:43)
[2017-01-21] MEDS: LACTULOSE PO SCH (22:07)
--- NOTE | 2017-01-22 07:16 | Extremity Venous Study ---
PROCEDURE NAME: Venous U/S Left Leg - 01/21/2017 LEFT LOWER EXTREMITY VENOUS DOPPLER ULTRASOUND: COMPARISON: None. FINDINGS: The deep veins of the left leg are fully compressible. There is normal color and pulse wave Doppler signal. IMPRESSION: Negative exam.
--- NOTE | 2017-01-22 07:57 | PROGRESS NOTE ---
DATE: 01/22/2017 SUBJECTIVE: Patient without new complaints this morning. She states she is still tired, fatigued. Still having difficulty getting out of bed. Still hurts all over. OBJECTIVE: Vital Signs: Reviewed. Temperature 97, pulse 69, respiratory rate 20, BP 174/89 to 145/93, saturation 99% on 2 L. General: Patient is a well developed, obese female who is currently in no respiratory distress. She is awake, alert. Neck: Supple. CV: Regular rate. Chest: Relatively clear. Abdomen: Soft. Extremities: Moves all extremities. Skin: Her edema appears to be improving. Her diffuse pustular lesions also appear to be drying up. She does not appear to have any new lesions. ASSESSMENT AND PLAN: 1. Pustular dermatitis, improving. Continue daptomycin. 2. Diabetes. We will wean her steroids. 3. Acute kidney injury. Unclear as to the etiology unless it is the vancomycin that she received previously that has caused her creatinine to increase from 1.3 to 1.7. However, it has remained stable for the past 2 days. 4. Morbid obesity. 5. Chronic autoimmune disease. Again, we will continue to encourage patient to get out of bed and to follow. We will continue pain medications, methotrexate, daptomycin, will saline lock. We will decrease her Solu-Medrol. We will get physical therapy involved.
[2017-01-22] MEDS: MIRALAX PO SCH (08:16)
[2017-01-22] MEDS: PREDNISONE PO SCH (08:16)
[2017-01-22] MEDS: LACTULOSE PO SCH ×2 (08:16→20:29)
[2017-01-22] MEDS: SOLU-MEDROL IV SCH ×2 (08:16→18:49)
[2017-01-22] MEDS: DILAUDID IV PRN ×4 (08:16→20:51)
[2017-01-22] MEDS ORDERED: METHOTREXATE PO SCH (09:00)
[2017-01-22 10:41] LABS: OCCULT BLOOD 1 NEGATIVE (NEGATIVE)
[2017-01-22 11:08] LABS: HEMATOCRIT 29.9 % (37.0-47.0); HEMOGLOBIN 10.1 g/dL (12.0-16.0); MCHC 33.8 g/dL (33-37); MCV 82.8 FL (81-99); MPV 10.4 FL (7.4-10.4); RBC 3.61 XMIL (4.2-5.4)
[2017-01-22 11:10] LABS: ALBUMIN 2.8 g/dL (3.5-5.0); CALCIUM 8.8 mg/dL (8.8-10.2); POTASSIUM 4.1 mmol/L (3.5-5.1); TOTAL BILIRUBIN 0.3 mg/dL (0.20-1.00); TOTAL PROTEIN 7.3 g/dL (6.3-8.3)
[2017-01-22] MEDS: LOVENOX SUBQ SCH (11:10)
[2017-01-22 12:50] LABS: OCCULT BLOOD 1 NEGATIVE (NEGATIVE)
[2017-01-22] MEDS: CUBICIN IV SCH (15:50)
[2017-01-22] MEDS: NS IV SCH (15:50)
[2017-01-22] MEDS: ZOFRAN IV PRN (20:52)
[2017-01-23 06:19] LABS: HEMATOCRIT 28.2 % (37.0-47.0); HEMOGLOBIN 9.3 g/dL (12.0-16.0); MCH 27.5 PG (27-31); MCV 83.4 FL (81-99); MPV 10.5 FL (7.4-10.4); RBC 3.38 XMIL (4.2-5.4)
[2017-01-23 06:44] LABS: ALBUMIN 2.8 g/dL (3.5-5.0); CALCIUM 8.9 mg/dL (8.8-10.2); POTASSIUM 4.1 mmol/L (3.5-5.1); TOTAL BILIRUBIN 0.2 mg/dL (0.20-1.00); TOTAL PROTEIN 6.9 g/dL (6.3-8.3)
[2017-01-23] MEDS: DILAUDID IV PRN ×3 (06:50→21:43)
[2017-01-23] MEDS: SOLU-MEDROL IV SCH (07:31)
[2017-01-23] MEDS ORDERED: SOLU-MEDROL IV SCH (08:00)
--- NOTE | 2017-01-23 08:09 | PROGRESS NOTE ---
DATE: 01/23/2017 SUBJECTIVE: The patient appears somewhat recalcitrant to answering questions this morning. When asked how she is feeling, her only response is her leg be paining. She declines to delineate on how or where her leg is currently hurting. She still is very recalcitrant to getting out of bed. PHYSICAL EXAMINATION: Vital Signs: Temperature 97, pulse 68, respiratory rate 20, BP 168/94. Saturation 99% on room air. General: The patient is a well developed, morbidly obese female who appears in no respiratory distress presently. HEENT: Normocephalic and atraumatic. PARVIN. Neck: Supple. CV: Regular rate. Chest: Relatively clear. Abdomen: Soft and nondistended. Extremities: Moves all extremities. Neurologic: No focal changes. Skin: Warm and dry. No rashes. Extremities: Trace edema of bilateral lower extremities. Neurologic: No focal changes from previous exams. Skin: Her pustular rash appears to be drying up quite well at this point. ASSESSMENT: 1. Pustular dermatitis with cellulitis. This appears to continue to be improving. 2. Chronic autoimmune disease. We will continue to wean her steroids. 3. Chronic pain. We will also wean her Dilaudid as she certainly does not need to stay on intravenous Dilaudid every 3 hours around the clock. 4. Diabetes. Continue to control. 5. Hypertension. Blood pressures have drifted up as to be expected with her lisinopril 10 mg being held. Her serum creatinine has continued to improve, certainly likely secondary to vancomycin. Currently, she is down to a creatinine of 1.5. We will restart her lisinopril as she was tolerating this prior to admission. PLAN: We will continue to encourage the patient to get out of bed. We will get physical therapy involved. Her hemoglobin and hematocrit have remained stable after transfusion. White count was remaining stable at 13, likely secondary to steroids. Hopefully, patient can be discharged home in the next few days.
[2017-01-23] MEDS: MIRALAX PO SCH (09:24)
[2017-01-23] MEDS: LACTULOSE PO SCH ×2 (09:24→21:10)
[2017-01-23] MEDS: PRINIVIL PO SCH (09:25)
[2017-01-23] MEDS: PREDNISONE PO SCH (09:25)
[2017-01-23] MEDS: ZOFRAN IV PRN ×2 (09:25→21:43)
[2017-01-23] MEDS: LOVENOX SUBQ SCH (10:24)
[2017-01-23] MEDS: NORCO-10 PO PRN (14:31)
[2017-01-23] MEDS: NS IV SCH (14:32)
[2017-01-23] MEDS: CUBICIN IV SCH (14:32)
[2017-01-24] MEDS ORDERED: PREDNISONE PO SCH (06:11)
[2017-01-24 06:24] LABS: HEMATOCRIT 28.2 % (37.0-47.0); HEMOGLOBIN 9.2 g/dL (12.0-16.0); MCH 27.3 PG (27-31); MCHC 32.6 g/dL (33-37); MCV 83.7 FL (81-99); MPV 10.2 FL (7.4-10.4); RBC 3.37 XMIL (4.2-5.4)
[2017-01-24 06:42] LABS: ALBUMIN 3.1 g/dL (3.5-5.0); CALCIUM 9.1 mg/dL (8.8-10.2); POTASSIUM 3.9 mmol/L (3.5-5.1); TOTAL BILIRUBIN 0.2 mg/dL (0.20-1.00); TOTAL PROTEIN 6.9 g/dL (6.3-8.3)
--- NOTE | 2017-01-24 08:52 | PROGRESS NOTE ---
DATE: 01/24/2017 SUBJECTIVE: The patient notes she did not get out of bed yesterday because her leg was hurting. She is actually asking to go home. OBJECTIVE: Vital Signs: On physical exam, temp 98, pulse 69, respiratory 21, BP 144/82, satting 99% on room air. General: Patient is a well developed, overweight female, who currently is in no respiratory distress. She is awake, alert. Neck: Supple. CV: Regular rate. Chest: Relatively clear. Abdomen: Soft, obese. Extremities: Moves all extremities. No appreciable edema. Skin: Her pustular rash appears to be improving. LABS: WBC 11, hemoglobin and hematocrit 9 and 28. Creatinine 1.6. ASSESSMENT: 1. Leukocytosis. Appears much more stable. She has been on steroids for the last few days. We will change this over to oral. This is likely the cause of her leukocytosis at this point. 2. Anemia, status post transfusion, stable. 3. Acute on chronic renal failure. Appears improved and stable. 4. Diabetes. Blood sugar is 170. 5. Pustular dermatitis of unknown etiology, certainly appears improved at this point, although she is still on intravenous daptomycin. Certainly may need to consider this at home. 6. Chronic autoimmune disease. We will continue to hold her methotrexate, as well as her Humira, until this has resolved and she is followed back up with her delivery crew worker. We will increase her prednisone to 20 mg. Hopefully home today if patient will begin ambulating. She has been quite reluctant to get out of bed over the last several days.
[2017-01-24] MEDS: MIRALAX PO SCH (10:07)
[2017-01-24] MEDS: LACTULOSE PO SCH ×2 (10:08→20:19)
[2017-01-24] MEDS: NORCO-10 PO PRN ×2 (10:08→16:17)
[2017-01-24] MEDS: PREDNISONE PO SCH (10:08)
[2017-01-24] MEDS: PRINIVIL PO SCH (10:08)
[2017-01-24] MEDS ORDERED: NS 500 ML ONE (11:03)
[2017-01-24] MEDS: LOVENOX SUBQ SCH (11:13)
--- NOTE | 2017-01-24 11:41 | Diag Imaging Result Document ---
PROCEDURE NAME: LOWER LEG-LEFT - 01/24/2017 LEFT LOWER LEG, 4 VIEWS: FINDINGS: There is soft tissue swelling distally. There is no evidence of acute fracture or dislocation, periosteal reaction, or lysis. There are some phleboliths in the anterior mid lower leg. IMPRESSION: No evidence of acute bony disease.
--- NOTE | 2017-01-24 11:44 | Diag Imaging Result Document ---
PROCEDURE NAME: FOOT COMPLETE LEFT - 01/24/2017 LEFT FOOT, 3 VIEWS: FINDINGS: There is mild generalized osteopenia. There is soft tissue swelling over the forefoot. There is no evidence of acute fracture or dislocation. IMPRESSION: No acute bony disease.
--- NOTE | 2017-01-24 11:55 | Diag Imaging Result Document ---
PROCEDURE NAME: CHEST-PORTABLE - 01/24/2017 PORTABLE CHEST: TIME: 1037 hours. FINDINGS: There is no evidence of acute cardiac or pulmonary disease. Considering differences in inspiration there has been no significant change since 01/20/2017. IMPRESSION: Stable chest.
--- NOTE | 2017-01-24 12:57 | Diag Imaging Result Document ---
PROCEDURE NAME: CHEST-PORTABLE - 01/24/2017 AP PORTABLE CHEST AT 1206 HOURS: FINDINGS: There is a PICC line on the right with its tip in the superior vena cava. The appearance of the chest has not changed appreciably since the previous study at 1037 hours. IMPRESSION: Stable chest.
[2017-01-24] MEDS: NS IV SCH (16:17)
[2017-01-24] MEDS: CUBICIN IV SCH (16:17)
[2017-01-24] MEDS: ZOFRAN IV PRN (16:18)
--- NOTE | 2017-01-24 19:09 | PROGRESS NOTE ---
DATE: 01/24/2017 PRESENT ILLNESS: The patient has an autoimmune disease for which she is on immunosuppressive therapy. She came in with pustular skin lesions that grew Staphylococcus epidermidis. The blood also grew a different type of coagulase-negative staph, therefore, it was a contamination. Since both skin lesions grew the same Staph epidermidis, I believe that is the pathogen. MEDICATIONS: The patient is on vancomycin. PHYSICAL EXAMINATION: Vital Signs: Temperature 98.7 degrees, pulse 84, respirations 20, blood pressure 173/99. General: This is an obese, young female. She is in no acute distress. Lungs: Clear to auscultation. Cardiovascular: Regular heart rate. Abdomen: Soft and nontender. Extremities: Patient has a PICC in her right arm. Integument: Most all of the patient's pustular lesions are completely gone. The only thing left are scars from them. LABORATORY DATA: CBC shows a white count of 11,230, hemoglobin 9.2, and platelet count 371,000. Creatinine is 1.7, GFR is 37. Chest x-ray shows no acute disease. MEDICATIONS: Patient is receiving IV daptomycin. ASSESSMENT AND PLAN: I would suggest stopping the patient's IV medications and treating her for 2 more weeks with p.o. doxycycline at a dose of 100 mg every 12 hours. COMORBIDITY: she has autoimmune disease and is on immunosuppressive therapy. She also is morbidly obese.
[2017-01-25] MEDS: NORCO-10 PO PRN ×2 (03:56→12:21)
[2017-01-25 04:50] VITALS: BP 184/93
[2017-01-25] MEDS: MIRALAX PO SCH (11:09)
[2017-01-25] MEDS: LACTULOSE PO SCH (11:09)
[2017-01-25] MEDS: PRINIVIL PO SCH (11:09)
[2017-01-25] MEDS: PREDNISONE PO SCH (11:09)
[2017-01-25] MEDS: LOVENOX SUBQ SCH (11:10)
[2017-01-25] MEDS: CUBICIN IV SCH ×2 (12:22→15:42)
[2017-01-25] MEDS: NS IV SCH ×2 (12:22→15:42)
--- NOTE | 2017-01-26 05:18 | DISCHARGE SUMMARY ---
ADMISSION DATE: 01/15/2017 DISCHARGE DATE: 01/25/2017 CHIEF COMPLAINT: Shortness of breath. HISTORY OF PRESENT ILLNESS: This is a 31-year-old, female with a history of morbid obesity, chronic autoimmune disease for which she is on immunosuppressive therapy. She is under the care of a brim buster in [place]. Her local physician is Dr. Godinez. She complains of shortness of breath and pain in her left leg. The pain is from her knee to her foot. She states it runs down her ornelas. It feels like a stabbing and pulling pain. She was found to have multiple pustular lesions that resembled folliculitis over both arms, her lower extremities mostly anteriorly, with some on her upper chest and upper back. She states she had done this in the past. The last episode was about 2 or 3 years ago. She did have a white count of 21,000. Wound cultures from her left foot and left arm revealed Staphylococcus epidermidis. Blood cultures revealed Staphylococcus hominis. Dr. Lionel Sultana, infectious disease, was consulted. He recommended antibiotic coverage of Zosyn to accompany vancomycin. HOSPITAL COURSE: We did trend her labs daily. Her creatinine did bump up to as high as 1.7. Vancomycin was discontinued. She was hydrated and creatinine has decreased. The pustular lesions began to dry up after she was started on IV steroids. They have since been changed to oral. She is tolerating this well. White counts have decreased. She has been afebrile with a T-max of 99.9 degrees on the 6th. As she has a history of hypertension, we did continue her home medications. In regards to her diabetes, she was placed on sliding scale insulin per patterned blood glucose. She usually takes metformin twice a day at home. Due to the bump in her creatinine, we will hold the metformin. We will send her home on a sliding scale with insulin coverage. She did complain of some left-sided weakness. She states this is chronic left-sided weakness. A CT of the head was performed which revealed no hemorrhage, normal brain CT without contrast. PT was consulted. We attempted to get the patient out of bed. She complained first of foot pain, then ornelas pain, and then she complained of hip pain. Hip and pelvis x-rays were performed. They revealed no acute abnormality. We did an extremity venous study on the left which revealed a negative exam. She did begin to work somewhat with PT, transferring slowly to a supine to sitting position. She was unable to bear weight on the left due to pain. She states this is her normal and in fact, she has a rolling walker at home that she uses. Plans were to discharge her on IV antibiotics. We changed her to Cubicin so that there would be a daily dose which would be more convenient for her at home and be more apt to assure compliance of IV antibiotics. As she has improved, she was reassessed by Dr. Sultana on the . Instructions were to send with antibiotic coverage being able to be changed to doxycycline 100 mg b.i.d. for 2 weeks. As she did continue to complain of pain from her knee down, we did a foot x-ray with the lower extremity, both, revealed no evidence of acute bony disease. She did state that this is chronic and it has been present for over a year. The patient presented with a hemoglobin and hematocrit of 11 and 33. This did trend down and on the 21 of January, she was 7.7 and 23.6. She had no signs and symptoms of bleeding. She has had no nausea and vomiting. We did Hemoccult stools twice which were negative. She was given 1 unit of packed cells. Hemoglobin and hematocrit have been stable at 9-10 and 28-29. DISCHARGE ASSESSMENT: Cardiovascular: Regular rate and rhythm. S1 and S2 are appreciated. Pulmonary: Breath sounds are distant due to body habitus but clear with no increased work of breathing noted. Gastrointestinal: Abdomen is large, soft, nondistended, nontender, with bowel sounds in all 4 quadrants. Extremities: She does move all extremities. She has no clubbing, cyanosis, or edema. Pulses are palpable. Skin: Her pustular rash appears to be improving. DIAGNOSES: 1. Pustular dermatitis, of unknown etiology. 2. Chronic autoimmune disease, on immunosuppression. 3. Diabetes mellitus. 4. Acute on chronic renal failure, which is improving. DISCHARGE MEDICATIONS: Doxycycline 100 mg p.o. b.i.d. for 2 weeks, lisinopril 10 mg daily, Humulin insulin placed on patterned blood glucose, prednisone 20 mg daily, Lasix 20 mg daily. DISCHARGE INSTRUCTIONS: She has been instructed to hold the methotrexate as well as her Humira. She is to call her brim buster in [facility], update them on the events as well as the 2 weeks of the antibiotics, and she has been given instructions per myself as well as the RN and a written instructions not to start Humira or methotrexate until this is okayed by her brim buster. She will have home health. FOLLOWUP: 1. She is to call Dr. Godinez and be seen in the 1-[address] Lionel Sultana in 3 weeks so that she can be reevaluated after antibiotics. 3. Her brim buster at [facility] as scheduled. DISPOSITION: She is being discharged home in stable condition with her sister. This is a greater than 30 minute discharge, from 9:30 to 10:03. Dictated by DAVID Babcock for Chico Cassidy MD
--- NOTE | 2017-01-31 10:04 | DISCHARGE SUMMARY ---
ADMISSION DATE: 01/15/2017 DISCHARGE DATE: 01/25/2017 DISCHARGE SUMMARY ADDENDUM: Sepsis due to cellulitis as noted by lactate, fever, and supraventricular tachycardia. Sepsis was secondary to Staphylococcus hominis.
== END 2017-01-25 16:53 | disposition home health service (06) | DRG 872 ==
LOC: P.ED 23:13 → P.MEDSURG 01-15 06:51
PROVIDERS: ATTEND Family Medicine
PROC: 02HV33Z Insertion of Infusion Device into Superior Vena Cava, Percutaneous Approach (ICD-10-PCS; principal; 2017-01-20)
PROC: 30233N1 Transfusion of Nonautologous Red Blood Cells into Peripheral Vein, Percutaneous Approach (ICD-10-PCS; 2017-01-21)
DX: A41.9 Sepsis, unspecified organism (principal); N17.9 Acute kidney failure, unspecified; E11.22 Type 2 diabetes mellitus with diabetic chronic kidney disease; Z68.42 Body mass index [BMI] 45.0-49.9, adult; L03.115 Cellulitis of right lower limb; L03.116 Cellulitis of left lower limb; E66.01 Morbid (severe) obesity due to excess calories; R21 Rash and other nonspecific skin eruption; M35.9 Systemic involvement of connective tissue, unspecified; N18.9 Chronic kidney disease, unspecified; Z87.891 Personal history of nicotine dependence; I12.9 Hypertensive chronic kidney disease with stage 1 through stage 4 chronic kidney disease, or unspecified chronic kidney disease; Z79.52 Long term (current) use of systemic steroids; L73.9 Follicular disorder, unspecified; B95.62 Methicillin resistant Staphylococcus aureus infection as the cause of diseases classified elsewhere; M12.80 Other specific arthropathies, not elsewhere classified, unspecified site; M25.559 Pain in unspecified hip; G89.29 Other chronic pain; D64.9 Anemia, unspecified; Z83.3 Family history of diabetes mellitus; Z82.49 Family history of ischemic heart disease and other diseases of the circulatory system; Z80.9 Family history of malignant neoplasm, unspecified; Z79.899 Other long term (current) drug therapy
CPT/HCPCS: 36415; 36569; 36584; 51702; 70450; 71010; 80048; 80053; 80202; 81001; 81025; 82270; 82550; 82553; 82570; 82784; 82805; 82948; 83605; 84300; 84484; 85025; 85027; 85610; 85730; 86850; 86900; 86901; 86920; 87040; 87070; 87077; 87088; 87186; 93971; 96361; 96365; 96367; 96375; 96376; J0878; J1170; J1650; J1885; J2405; J2543; J2920; J3370; J7030; J7040; J7512; J8610; P9016; 97110-GP; 97530-GP

== ENCOUNTER 2017-07-03 10:47 | Inpatient (IN) ==
[2017-07-03] MEDS ORDERED: DILAUDID IV ONE (11:17)
[2017-07-03] MEDS ORDERED: ZOFRAN IV ONE (11:19)
[2017-07-03] MEDS ORDERED: DILAUDID ONE (11:44)
[2017-07-03 12:19] LABS: MANUAL DIFF NEEDED? NO
[2017-07-03 12:21] LABS: BASO% 0.1 % (0.0-0.8); EOS# 0.05 X1000 (0.0-0.7); EOS% 0.4 % (0.0-10.0); HEMATOCRIT 32.8 % (37.0-47.0); HEMOGLOBIN 10.6 g/dL (12.0-16.0); IMM GRAN# 0.03 X1000 (0.0-0.04); IMM GRAN% 0.2 % (0.0-0.5); LYMPH# 3.14 X1000 (1.2-3.4); LYMPH% 22.2 % (20.5-51.1); MCH 26.2 PG (27-31); MCHC 32.3 g/dL (33-37); MONO# 0.56 X1000 (0.11-0.59); MPV 10.3 FL (7.4-10.4); NEUT% 73.1 % (42.2-75.2); PLT 286 X1000 (130-400); RBC 4.05 XMIL (4.2-5.4)
[2017-07-03 12:44] LABS: AGAP 14; ALBUMIN 3.8 g/dL (3.5-5.0); ALKALINE PHOSPHATASE 66 U/L (32-104); BUN 7 mg/dL (8-22); CALCIUM 9.2 mg/dL (8.8-10.2); CHLORIDE 98 mmol/L (98-107); COSMO 271; GOT 7 U/L (10-30); GPT 9 U/L (10-36); SODIUM 137 mmol/L (136-145); TCO2 25 mmol/L (25-35); TOTAL BILIRUBIN 0.32 mg/dL (0.20-1.00); TOTAL PROTEIN 7.9 g/dL (6.3-8.3)
[2017-07-03] MEDS ORDERED: KEFLEX PO ONE (13:40)
[2017-07-03] MEDS ORDERED: ZOSYN 3.375 GM in NS 50 ML IV ONE (13:44)
--- NOTE | 2017-07-03 14:01 | PROVIDER DOCUMENTATION ---
This chart was entered by Binta Cardona Scribe, acting as scribe for Carlos Alberto Noble MD. HPI-General Adult - General Stated Complaint: BLEEDING FROM CYST UNDER LEFT ARM Time Seen by Provider: 07/03/17 11:16 Source: patient, family (sister) Allergies/Adverse Reactions: Patient Allergies Allergy/AdvReac Type Severity Reaction Status Date / Time diphenhydramine HCl * AdvReac Unknown Verified 07/03/17 11:21 [From Benadl] Home Medications: Home Medication List Medication Instructions Recorded Confirmed Last Taken Type Lisinopril 10 mg PO DAILY 01/15/17 07/03/17 07/03/17 History Prednisone 20 mg PO DAILY #30 tablet 01/24/17 07/03/17 07/03/17 Rx Acetaminophen with Codeine 1 each PO TID #6 tablet 04/11/17 07/03/17 Unknown Rx [Tylenol with Codeine #3 Tablet] Ferrous Sulfate 1 tab PO BID 04/11/17 07/03/17 07/03/17 History Metformin HCl [Metformin HCl] 1 tab PO BID 04/11/17 07/03/17 07/03/17 History Methocarbamol [Robaxin] 500 mg PO TID #30 tablet 04/11/17 07/03/17 Unknown Rx Sertraline HCl [Sertraline HCl] 1 tab PO DAILY 04/11/17 07/03/17 Unknown History Sertraline HCl [Sertraline HCl] 100 mg PO DAILY 04/11/17 07/03/17 Unknown History - History of Present Illness -Gen Adult Nature of Presenting Problems: 31 y/o F presents to ED cc of "abscess under neath arm that is bleeding". Pt sister is at bed side and states this has never happened before. Sister states pt has an immune disorder but unsure what it is. Sister states pt uses a walker to get around but is not very active. Pt is alert and oriented. Location of Pain/Injury: reports: upper body (bilat axillary/ L worse than R) Pain Radiation: reports: no radiation Quality of Pain: reports: aching, burning Severity: reports: mild Onset/Duration: reports: just prior to arrival Timing: reports: still present Context/Activities at Onset: reports: light activity Modifying Factors: improves with: nothing Associated Symptoms: reports: fever/chills, other ("sores bleeding from under arm"). denies: chest pain, constipation, cough, diaphoresis, diarrhea, muscle aches, sinus congestion/drainage, nausea, shortness of breath, swelling/mass in abdomen, syncope, vomiting, weakness Review of Systems - Adult - REVIEW OF SYSTEMS - ADULT ROS:: ROS per family Constitutional: reports: fever. denies: chills Ears, Nose, Mouth & Throat: denies: ear pain, throat pain Cardiovascular: denies: chest pain, palpitations Respiratory: denies: cough, pleurisy, shortness of breath, wheezing Gastrointestinal: denies: abdominal pain, diarrhea, nausea, vomiting Genitourinary: denies: discharge, frequency Integumentary: reports: other (abscess underneath bilat axiallary). denies: hair loss Neurological: denies: dizziness/vertigo, headache/migraines, paresthesia, slurred speech Past History - Adult - PAST MEDICAL HISTORY-ADULT Review of Records: reports: Old Records Reviewed, Nursing Assessment Review Major Childhood Illnesses: reports: denies history Cardiovascular: reports: HTN Respiratory: reports: denies history Gastrointestinal: reports: denies history Obstetrical/Gynecological: reports: denies history Genitourinary: reports: denies history Musculoskeletal: reports: arthritis Neurological: reports: denies history Endocrine/Immune: reports: Diabetes Other Conditions: reports: denies history Additional History: auto immune inflammatory disease - PRIOR SURGERIES/PROCEDURES Surgical/Procedure History: reports: none - IMMUNIZATION STATUS Childhood Immunizations: See Nurse Assessment Flu Vaccine: See Nurse Assessment - FAMILY HISTORY Family History: reviewed, not pertinent - SOCIAL HISTORY Smoking: denies, non-smoker Substance Use: alcohol Alcohol Use Frequency: occasionally Physical Exam-General - PHYSICAL EXAM-ADULT Initial Vital Signs Reviewed: Yes - CONSTITUTIONAL General Appearance: appears well, alert, no apparent distress, obese. negative : lethargic, slow to respond - EYES Eyes: PERRL/EOMI, pink conjunctivae - HEAD, EARS, NOSE, MOUTH & THROAT HENMT: normocephalic/atraumatic, moist mucous membranes, normal ENT inspection - NECK Neck: non-tender, full range of motion, supple, normal inspection - RESPIRATORY Respiratory: chest non-tender, lungs clear, normal breath sounds, no pleuratic chest pain, no respiratory distress, no accessory muscle use. negative: respiratory distress, decreased breath sounds, accessory muscle use, crackles, rales, rhonchi - CARDIOVASCULAR Cardiovascular: normal peripheral pulses, regular rate, rhythm - GASTROINTESTINAL (ABDOMEN) Abdominal Exam: normal bowel sounds, non tender, soft. negative: distended, guarding, rigid, rebound, tenderness - MUSCULOSKELETAL Back Exam: normal inspection, no CVA tenderness, no vertebral tenderness Extremity: normal range of motion, non-tender - SKIN Integumentary: normal color, normal turgor, warm/dry, other (abscess to bilat axillary( hidradenitis per )) - NEUROLOGIC Neurologic: grossly normal, no motor/sensory deficits - PSYCHIATRIC Psych/Mental Status: oriented x 3, depressed affect Progress - PLAN OF CARE/RESULTS Progress/Plan/Lab Results: Vital Signs - 8 hr 07/03/17 11:00 Pulse Rate 77 Respiratory Rate 22 Blood Pressure 202/129 O2 Sat by Pulse Oximetry 100 PT SISTER STATES PT HAS APPOINTMENT WITH [facility] DOC TOMORROW Result Diagrams: 07/03/17 12:05 07/03/17 12:05 - REASSESSMENT Reassessment #1 Time Reassessed: 12:15 Status: unchanged (Pt and pt sister wanting pt to stay due to fever and having to check on her during the night. Pt sister does state pt has appointment with [facility] doc tomorrow.) Reassessment #2 Time Reassessed: 13:43 Status: unchanged (pt aware of admissions) - CONSULTS/PCP/HOSPITALIST Notification #1 *Consult/PCP/Hospitalist*: Hospitalist FLIGHT MANAGER - Time Discussed: 13:51 Consult Disposition: Admit Departure - Departure Date of Disposition Decision: 07/03/17 Time of Disposition Decision: 13:41 DIAGNOSIS: Hidradenitis, Generalized weakness Disposition: ADMITTED INPATIENT 09 Certified Medical Emergency: Emergent Condition: Stable Additional Freetext Instructions: ED Follow Up Instructions: You have been treated by a care provider in the Emergency Department. These instructions are being provided to you so you can have an understanding of how to care for yourself upon discharge. Upon discharge from the Emergency Department, you are responsible for making arrangements for follow-up care by a physician of your choice. Take all prescribed medications as directed. Return to the Emergency Department immediately for any new or worsening symptoms. You may call the Physician Referral phone number at [phone] to obtain a list of Physicians who are taking new patients. 1400: Case discussed with hospitalist, who has accepted patient for admission Referrals and Follow-Ups: None,PCP [Clinical Support] - Discharge Education: Hidradenitis Suppurativa - Critical Care Note This patient required my direct & personal management of CC.: No Attestation - Physician/ SHERRON Attestation The physician spent face to face time with patient:: Yes Advanced Practice Provider documentation review:: Supervising physician onsite and consulted in the evaluation and care of this patient. The physician did have a face to face encounter with the patient. This chart was documented by the indicated scribe, (Binta Cardona Scribe) and accurately reflects the services I performed and decisions made by me, Carlos Alberto Noble MD, as attested by the provider's signature.
--- NOTE | 2017-07-03 14:54 | Diag Imaging Result Doc PS360 ---
EXAM: CHEST-2 VIEWS HISTORY: r/o pna TECHNIQUE: PA and lateral chest COMMENT: There is cardiomegaly. The lungs appear to be clear. There has been no significant change since 01/24/2017 otherwise. IMPRESSION: Cardiomegaly. Electronically signed by Anup Gallardo 07/03/2017 2:52 PM
[2017-07-03] MEDS ORDERED: TYLENOL PO PRN (15:14)
[2017-07-03] MEDS ORDERED: VANCOMYCIN IV PER PHARMACY MISC SCH (15:30)
[2017-07-03] MEDS ORDERED: TYLENOL WITH CODEINE #3 PO PRN (15:41)
[2017-07-03] MEDS ORDERED: ROBAXIN PO PRN (15:41)
--- NOTE | 2017-07-03 15:56 | HISTORY AND PHYSICAL ---
Presented to the emergency room. She was admitted on 07/03/2017. She has had trouble with hidradenitis and skin superficial infections, sebaceous cysts, carbuncles in the past but at this time she has had under both arms very irritated and irritated and both of them were bleeding, strong anaerobic odor and will be admitted. She is probably going to need surgical drainage. I will start her on antibiotics empirically for gram-positive, obtain blood cultures and wound culture as we can. She was admitted last on 01/31/2017. PAST MEDICAL HISTORY: 1. 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 They are trying to get records from [facility] in the past. She said she has systemic lupus erythematosus I believe. 2. Diabetes mellitus type 2. 3. Hypertension. 4. Morbid obesity. 5. She has been told she had heart failure. Looking back, I do not know they we have ever obtained an echocardiogram to look at her left ventricular function. She denies any surgery. 6. Rheumatoid arthritis. FAMILY HISTORY: Positive for diabetes and hypertension. SOCIAL HISTORY: No tobacco, ethanol. She apparently lives with her sister. She is limited because of her autoimmune connective tissue disease. ALLERGIES: Benadryl apparently. MEDICATIONS: She is on methotrexate 2.5 mg daily, prednisone 20 mg a day. Metformin 1 g b.i.d., lisinopril 10 mg, Lasix 20 mg a day. REVIEW OF SYSTEMS: She has not noted weight loss. No fever or not recorded any fever.HEENT: Unremarkable. Respiratory: No increased work of breathing or dyspnea. Cardiovascular: No chest pain or tachy palpitation. GI/: No gross hematuria, dysuria. Neurologic: No focal complaints. Main complaint is the irritation in the armpits. She is complaining of leg pain. She does have some benign appearing pustules scattered on the lower shins. LAB: White count 14677, hematocrit 32, platelet count 286,000. Sodium 137, potassium 4.0, chloride 98, BUN 7, creatinine 0.5, transaminases unremarkable. Calcium 9.2. Chest x-ray, some cardiomegaly but lung farah unremarkable. ASSESSMENT AND PLAN: 1. History of chronic autoimmune disease for which she is on immunosuppressive therapy. Has a history of gram-positive coccal bacteremia in the past. She had isolated last time a pustule lesion. At this time appears to have hidradenitis with subcutaneous skin abscesses in both arms. I will put the patient on vancomycin but also going to put on Zosyn right now for gram- negative and anaerobes. Ask Dr. Sultana to follow. Will ask wound care for assistance and I will consult Surgery. I think Dr. Gan is [employer] operations intelligence chief. 2. Chronic autoimmune connective tissue disease. Not sure of the details. She is getting methotrexate I think regularly. She is complaining of leg pain. 3. History of hypertension. 4. Diabetes mellitus type 2. Check blood sugars pattern or sliding scale. 5. Morbid obesity. Review of her home medications. She is on Tylenol #3 as needed. Ferrous sulfate 1 b.i.d. Lisinopril 10 mg a day. Metformin 1 g b.i.d. Robaxin 500 mg t.i.d. Prednisone 20 mg a day. Sertraline not sure though I think was 100 mg daily. cc: Eduin Segal MD
[2017-07-03 17:40] LABS: URINE CULTURE NEEDED? NO; URINE SOURCE CLEAN CATCH
[2017-07-03 17:47] LABS: BILIRUBIN URINE NEGATIVE (NEGATIVE); BLOOD URINE NEGATIVE (NEGATIVE); COLOR YELLOW; GLUCOSE URINE NEGATIVE (NEGATIVE); LEUKOCYTES URINE NEGATIVE (NEGATIVE); NITRITE URINE NEGATIVE (NEGATIVE); PROTEIN URINE NEGATIVE (NEGATIVE); SP GRAVITY URINE 1.019; TURBIDITY URINE HAZY (CLEAR); UROBILINOGEN URINE NORMAL (NORMAL)
[2017-07-03 17:48] LABS: URINE MICRO REVIEW NEEDED? YES
[2017-07-03 17:49] LABS: UR EPITHELIAL CELLS <10 /HPF (<10); URINE BACTERIA 1+ /HPF; URINE WBC <10 /HPF (<10)
[2017-07-03] MEDS ORDERED: NORCO-7.5 PO PRN (18:00)
[2017-07-03] MEDS: NS 1,000 ML IV SCH (18:00)
[2017-07-03 18:04] LABS: URINE CRYSTALS NONE SEEN
[2017-07-03] MEDS: GLUCOPHAGE PO SCH (18:14)
--- NOTE | 2017-07-03 18:38 | CONSULTATION ---
DATE OF CONSULTATION: 07/03/2017 CONCLUSION: The patient has hidradenitis suppurativa and it appears that the lesions in the left axilla have been complicated by infection. RECOMMENDATIONS: I agree with culturing the area and starting the patient on vancomycin and Zosyn pending culture results. DISCUSSION: The patient tells me that for 2 years she has had hidradenitis suppurativa involving both axillae and both groin areas. She has also noticed that her hands and toes have become deformed but this is most likely secondary to the rheumatoid arthritis she has. The left axilla especially has been involved for the past week. The area is actually bleeding. The patient's CBC shows a white count of 14,160, hemoglobin 10.6, and platelet count 286,000. Creatinine is 0.5. GFR is greater than 60. Liver function studies are normal. Chest x-ray shows cardiomegaly. Urinalysis shows bacteria but no white cells. PAST MEDICAL HISTORY/REVIEW OF SYSTEMS: Eyes and ears: She denies having trouble seeing or hearing. Neck: No stiffness. Respiratory: Patient states that intermittently she has difficulty breathing. Gastrointestinal: In the past week patient has had vomiting and diarrhea but this is clearing. Genitourinary: Patient states it is sometimes difficult for her to get her urination started. Cardiac: No chest pain or palpitations. Bones, joints, muscles: As mentioned above, patient has been developing deformities in her toes and fingers. Endocrine: Patient has diabetes but not thyroid disease. Neurologic: The patient now needs to either use a cane when she walks or she needs to walk with a walker because of being weak and somewhat ataxic EMERGENCY MED[facility] EMT HISTORY: Patient has never been . Her last menstrual period was 3 weeks ago. PREVIOUS HOSPITALIZATIONS AND OPERATIONS: She has had admissions for hidradenitis suppurativa for being dyspneic and also admissions for hidradenitis suppurativa exacerbations. MEDICAL DISEASES: Positive for hydradenitis suppurativa, diabetes mellitus and hypertension. INFECTIOUS DISEASE HISTORY: Positive for infection superimposed on the patient's hidradenitis suppurativa. FAMILY HISTORY: Positive for systemic lupus, cancer and hypertension. SOCIAL HISTORY: [place] She is single. She lives with her sister. Patient is disabled. She does not drink alcoholic beverages. She does not smoke and does not abuse drugs. She does not have any pets at home. MEDICATIONS TAKEN AT HOME: Methotrexate, Humira, prednisone, sertraline, Robaxin, metformin, lisinopril, acetaminophen with codeine. PHYSICAL EXAMINATION: Vital Signs: Temperature is 98.1 degrees, pulse 74, respirations 18, blood pressure 175/91. Patient weighs 250 pounds. General: This is an obese, young female. She is having most problems with pain in her left axilla. Head, eyes, ears, nose, throat: She can hear my spoken words and see near objects. No drainage is noted from her nose or ears. Neck: No meningismus. Bones, joints, muscles: She has deformities to her fingers and toes. Integument: The patient has lesions in the right axilla which have scarring on them, they are not draining. In the left axilla she has multiple wounds that are draining serosanguineous fluid. Abdomen: Soft and nontender. I attempted to look in both groin areas but it was very difficult due to the patient's obesity but I did not see anything that looked like an active infection. Neurologic: Patient is awake. She can move her extremities. There is no tremor. Her memory as regarding her medical history seems to be intact. Thank you for the consultation. cc: Lionel Sultana MD
[2017-07-03] MEDS: HUMULIN R SUBQ SCH ×2 (20:13→21:19)
[2017-07-03] MEDS: FERROUS SULFATE PO SCH (21:26)
[2017-07-03] MEDS: ZOSYN 3.375 GM in NS 50 ML IV SCH (21:26)
[2017-07-03] MEDS: NORCO-10 PO PRN (21:56)
[2017-07-03] MEDS: VANCOMYCIN 2 GM in NS 500 ML IV SCH (21:57)
[2017-07-04] MEDS: NORCO-10 PO PRN ×3 (01:36→15:16)
[2017-07-04] MEDS: ZOSYN 3.375 GM in NS 50 ML IV SCH ×4 (02:06→22:41)
[2017-07-04 05:47] LABS: MANUAL DIFF NEEDED? NO
[2017-07-04 05:59] LABS: BASO% 0.2 % (0.0-0.8); EOS# 0.04 X1000 (0.0-0.7); EOS% 0.4 % (0.0-10.0); HEMOGLOBIN 9.6 g/dL (12.0-16.0); INR 0.98; LYMPH# 2.51 X1000 (1.2-3.4); LYMPH% 26.9 % (20.5-51.1); MCV 81.3 FL (81-99); MONO# 0.29 X1000 (0.11-0.59); MONO% 3.1 % (1.7-9.3); MPV 10.2 FL (7.4-10.4); NEUT% 69.4 % (42.2-75.2); PLT 250 X1000 (130-400); PROTIME 10.3 Seconds (9.2-11.7); PTT 30.7 Seconds (22.0-36.0); RBC 3.69 XMIL (4.2-5.4)
[2017-07-04] MEDS: HUMULIN R SUBQ SCH ×5 (06:01→22:42)
[2017-07-04 06:07] LABS: HEMOGLOBIN A1C 5.7 % (4.8-6.0)
[2017-07-04 06:32] LABS: AGAP 13; ALBUMIN 3.4 g/dL (3.5-5.0); ALKALINE PHOSPHATASE 58 U/L (32-104); BUN 6 mg/dL (8-22); CALCIUM 8.5 mg/dL (8.8-10.2); CHLORIDE 101 mmol/L (98-107); COSMO 275; GOT 9 U/L (10-30); GPT 8 U/L (10-36); MAGNESIUM 1.7 mg/dL (1.5-2.7); POTASSIUM 3.7 mmol/L (3.5-5.1); SODIUM 139 mmol/L (136-145); TCO2 25 mmol/L (25-35); TOTAL BILIRUBIN 0.36 mg/dL (0.20-1.00)
[2017-07-04 06:33] LABS: FREE T4 1.24 ng/dL (0.93-1.70)
--- NOTE | 2017-07-04 06:56 | CONSULTATION ---
DATE OF CONSULTATION: 07/04/2017 REASON FOR CONSULTATION: Concerning hidradenitis suppurativa. REQUESTING PHYSICIAN: Dr. Segal. HISTORY OF PRESENT ILLNESS: A 31-year-old female presenting with hidradenitis to both her armpits. She has significant history of this but has never had a surgical intervention for this. She has been previously admitted for the same process. She reports it has been going on for several years but again no significant improvement. She reports significant tenderness in both her axilla. PAST MEDICAL HISTORY: 1. Chronic autoimmune disease and possibly mixed connective tissue disease for which she has been treated at [facility]. 2. Systemic lupus. 3. Diabetes mellitus type 2. 4. Hypertension. 5. Morbid obesity. 6. Reported history of heart failure. 7. Rheumatoid arthritis. PAST SURGICAL HISTORY: None. FAMILY HISTORY: Positive for diabetes and hypertension. SOCIAL HISTORY: Denies alcohol, tobacco or illicit drugs. ALLERGIES: Benadryl. HOME MEDICATIONS: Methotrexate, prednisone, metformin, lisinopril and Lasix. REVIEW OF SYSTEMS: A full 10 point review of systems obtained and negative except as specified in HPI. PHYSICAL EXAMINATION: Vital Signs: Patient is currently afebrile. Her vital signs are stable. General: No acute distress resting in bed. HEENT: Normocephalic, atraumatic. Pupils equal, round, and reactive to light. Mucous membranes moist. Oropharynx benign. Neck: Supple. Trachea midline. Cardiovascular: Regular rate and rhythm. Lungs: Grossly clear. Abdomen: Soft, nondistended. Mild bilateral lower quadrant tenderness. Extremities: Moves all extremities. Skin: There are chronic changes to both axilla consistent with hidradenitis. The left side appears to be worse. There are multiple areas where the skin is open and appears to be draining spontaneously. It looks like serosanguineous although there are some signs of purulence in the drainage. I do not see any or feel any undrained fluid collections but again, it is spontaneously draining. On the right side, a similar presentation but not to the same degree. Neurologic: Grossly intact. Vascular: All extremities perfused. LABORATORY: From yesterday reviewed, white blood cell 14, hematocrit 32 and platelet count 286,000. Remainder of labs reviewed. She did have normal LFTs. ASSESSMENT/PLAN: A 31-year-old female with hidradenitis suppurativa with multiple medical comorbidities. 1. Multiple medical comorbidities. At this time, she has been admitted by the hospitalist service. There is some concern that she does have chronic autoimmune connective tissue disorder although the records are still pending. She does take methotrexate. There is some concern she might have lupus. All of these records reviewed and obtained from [facility] by the hospitalist service. Again, she also has reported heart failure but we have no documentation of that. 2. Hidradenitis suppurativa. Left side appears more significant than the right. She is on antibiotics. At this time, I would like to give her a couple of days of antibiotics. I did not see any undrained fluid collections. It is spontaneously draining. I think she is likely going to need an extensive debridement of her skin with possible wound VAC. I would like to give her a couple of days of antibiotics and consider potentially doing this on Friday. We will see what arrangements can be made. I appreciate the consult. cc: Fer Gan MD
[2017-07-04] MEDS ORDERED: MILK OF MAGNESIA PO ONE (07:07)
[2017-07-04] MEDS ORDERED: DILAUDID IV PRN (07:08)
[2017-07-04] MEDS: PRINIVIL PO SCH (08:46)
[2017-07-04] MEDS: GLUCOPHAGE PO SCH ×2 (08:46→18:12)
[2017-07-04] MEDS: FERROUS SULFATE PO SCH ×2 (08:46→22:42)
[2017-07-04] MEDS: ZOLOFT PO SCH ×2 (08:46→08:47)
[2017-07-04] MEDS: PREDNISONE PO SCH (08:46)
[2017-07-04] MEDS: NS 1,000 ML IV SCH ×2 (08:56→15:24)
[2017-07-04] MEDS: DILAUDID IV PRN ×2 (10:13→19:52)
[2017-07-04] MEDS: VANCOMYCIN 2 GM in NS 500 ML IV SCH (10:46)
--- NOTE | 2017-07-04 15:31 | PROGRESS NOTE ---
DATE: 07/04/2017 SUBJECTIVE: Ms. Nixon is feeling better. She was given some Dilaudid. She is little bit lethargic but much more comfortable. EXAM: Vital signs: Today temperature 98.9 degrees, pulse 90, respirations 16, blood pressure 159/90. Lungs: Clear in all lung farah. Cardiovascular: Regular rhythm and rate without murmur or S3. Abdomen: Soft. Skin: Warm and dry. Urine output 2600. LAB REVIEW: From today white count 9000, it has come down from 14,934, hematocrit 30, platelet count 250,000. Chemistries. Blood sugar 99, 151. ASSESSMENT/PLAN: 1. Multiple medical comorbidities but this is a patient with hidradenitis suppurativa with multiple comorbidities as mentioned. Plan is I think some drainage and wound VAC. Continue broad-spectrum antibiotics at this point. 2. She has autoimmune connective tissue disorder. See if we can obtain information. This may be lupus but sounds like it is a mixed connective tissue disorder. 3. Morbid obesity. 4. Diabetes mellitus type 2. Will continue to follow sugars. 5. Review of lab. Blood sugars look like they are doing well. I have reviewed orders, do not see any change. Continued topical wound care. Appreciate the help from Dr. Sultana, Dr. Gan, Jackie Fernández. cc: Eduin Segal MD
--- NOTE | 2017-07-04 16:34 | PROGRESS NOTE ---
DATE: 07/04/2017 PRESENT ILLNESS: The patient has hydradenitis suppurativa which has been complicated by infection especially in the left axilla. MEDICATIONS: The patient is on a combination of vancomycin and Zosyn. This is the first day of treatment. PHYSICAL EXAMINATION: Vital Signs: Temperature is 98.9 degrees, pulse 91, respirations 16, blood pressure 159/90. Patient's weight is listed as 250 pounds. General: The patient is obese but she seems to be much more comfortable today than she was when she came in last night. Lungs: Clear to auscultation. Cardiovascular: Regular heart rate. The right axilla does not have any active bleeding at this time and there is no pus that can be seen. The left axilla continues to bleed. I do not see any purulence. LAB AND X-RAY: CBC today shows a white count of 9340, hemoglobin 9.6 and platelet count 250,000. Creatinine is 0.5. GFR is greater than 60. Liver function studies are normal. The culture from the left axilla shows no growth thus far. Blood cultures are pending. ASSESSMENT AND PLAN: Patient has hydradenitis suppurativa complicated by infection. The plan is to continue the patient's antibiotics. Dr. Farley will be taking the patient to surgery at the first of the week. COMORBIDITIES: Include include obesity and diabetes mellitus. cc: Lionel Sultana MD
[2017-07-04] MEDS: ZOFRAN IV PRN (18:13)
[2017-07-05] MEDS: VANCOMYCIN 2 GM in NS 500 ML IV SCH ×2 (00:37→13:45)
[2017-07-05] MEDS: NS 1,000 ML IV SCH ×3 (00:37→16:31)
[2017-07-05] MEDS: ZOSYN 3.375 GM in NS 50 ML IV SCH ×4 (03:39→23:38)
[2017-07-05] MEDS: DILAUDID IV PRN ×4 (05:09→21:05)
[2017-07-05] MEDS: HUMULIN R SUBQ SCH ×4 (06:11→22:50)
--- NOTE | 2017-07-05 07:13 | PROGRESS NOTE ---
DATE: 07/05/2017 SUBJECTIVE: Patient is about the same. Still draining from her left axilla more than the right. OBJECTIVE: Patient is currently afebrile. Her vital signs are stable.General: No acute distress. HEENT: Normocephalic atraumatic. Pupils equally, round, and react to light. Mucous membranes moist. Oropharynx benign. Neck: Supple. Trachea midline. Cardiovascular: Regular rate and rhythm. Lungs: Grossly clear. Abdomen: Soft, nontender, nondistended but obese. Extremities/Skin: There is the hidradenitis noted of both axilla. The left is significantly worse than the right. It is still actively draining. They have a dressing intact. LABORATORY: No labs this morning. Microbiology: No growth at this time. ASSESSMENT AND PLAN: A 31-year-old, female with hidradenitis in both axilla with the left being more significant. Hidradenitis of the left axilla. At this time, plan for surgical intervention on Friday. Likely excise the skin and place a wound vacuum-assisted closure. This has been discussed the patient. We will make her NPO after midnight for going into Friday. cc: Fer Gan MD MTDD
[2017-07-05] MEDS: FERROUS SULFATE PO SCH ×2 (10:20→23:38)
[2017-07-05] MEDS: PRINIVIL PO SCH (10:20)
[2017-07-05] MEDS: PREDNISONE PO SCH (10:20)
[2017-07-05] MEDS: GLUCOPHAGE PO SCH ×2 (10:20→16:31)
[2017-07-05] MEDS: ZOLOFT PO SCH ×2 (10:21→10:24)
--- NOTE | 2017-07-05 10:32 | PROGRESS NOTE ---
DATE: 07/05/2017 OBJECTIVE: Vital Signs: She remains afebrile; temp this morning was 99.2. Pulse 80, respirations 20 and blood pressure 147/78. Lungs: Clear in all lung farah. Cardiovascular exam: Regular rhythm and rate without murmur or S3. Abdomen: Soft. Axilla: Less swollen. No sign of bleeding at this time. : Urine output was 3500. LAB: From yesterday, white count 9340, hematocrit 30, platelet count 250,000. Blood sugar 158, 227, 166. ASSESSMENT AND PLAN: 1. Hidradenitis in both axilla, left being more significant. Plan for surgical intervention on Friday. Likely excise and place wound vacuum closure. Continue present antibiotics. Topical treatment. Dr. Gan is the general surgeon and Dr. Sultana is following. 2. Diabetes mellitus type 2. Continue to follow sugars closely. He is on a sliding scale. They look under good control. 3. Morbid obesity. 4. There is a history of autoimmune connective tissue disorder. Would like to see if we could get records on that. The patient is on Zosyn and vancomycin. cc: Eduin Segal MD
[2017-07-05] MEDS: NORCO-10 PO PRN ×2 (14:07→23:43)
[2017-07-05] MEDS: ZOFRAN IV PRN (15:17)
[2017-07-06] MEDS: ZOFRAN IV PRN ×2 (00:06→23:40)
[2017-07-06] MEDS: VANCOMYCIN 2 GM in NS 500 ML IV SCH (02:11)
[2017-07-06] MEDS: ZOSYN 3.375 GM in NS 50 ML IV SCH ×5 (05:26→22:08)
[2017-07-06] MEDS: DILAUDID IV PRN ×5 (05:51→22:45)
[2017-07-06 06:25] LABS: MANUAL DIFF NEEDED? NO
[2017-07-06 06:26] LABS: BASO% 0.2 % (0.0-0.8); EOS# 0.06 X1000 (0.0-0.7); EOS% 0.5 % (0.0-10.0); HEMATOCRIT 27.9 % (37.0-47.0); HEMOGLOBIN 8.9 g/dL (12.0-16.0); LYMPH# 2.19 X1000 (1.2-3.4); LYMPH% 18.8 % (20.5-51.1); MCH 26.2 PG (27-31); MCHC 31.9 g/dL (33-37); MCV 82.1 FL (81-99); MONO% 4.3 % (1.7-9.3); MPV 10.7 FL (7.4-10.4); NEUT% 76.2 % (42.2-75.2); PLT 263 X1000 (130-400)
[2017-07-06] MEDS: HUMULIN R SUBQ SCH ×4 (06:35→22:08)
[2017-07-06 06:42] LABS: AGAP 10; BUN 8 mg/dL (8-22); CALCIUM 8.8 mg/dL (8.8-10.2); CHLORIDE 103 mmol/L (98-107); COSMO 277; POTASSIUM 3.6 mmol/L (3.5-5.1); SODIUM 140 mmol/L (136-145); TCO2 27 mmol/L (25-35)
--- NOTE | 2017-07-06 07:21 | PROGRESS NOTE ---
DATE: 07/06/2017 SUBJECTIVE: Patient is about the same. No major issues reported by the nursing staff. OBJECTIVE: Vital Signs: Patient is currently afebrile. Her vital signs are stable. HEENT: Normocephalic, atraumatic. Pupils equal, round, and reactive to light. Mucous membranes moist. Oropharynx benign. Neck: Supple. Trachea midline. Cardiovascular: Regular rate and rhythm. Lungs: Grossly clear. Abdomen: Soft, nontender, nondistended but obese. Extremities: Hidradenitis noted to both axillae. Left is significantly worse than the right. Still actively draining. She has dressings intact in that area. ASSESSMENT/PLAN: A 31-year-old, female with hidradenitis in both axillae with the left being more significant. Hidradenitis of the left axilla. At this time, we will plan on surgical intervention tomorrow. I discussed with the patient the risks, benefits, and alternatives for the procedure. All questions were answered. We will make her nothing per oral and place consent on the chart. cc: Fer Gan MD
[2017-07-06] MEDS: FERROUS SULFATE PO SCH ×2 (09:30→21:20)
[2017-07-06] MEDS: PREDNISONE PO SCH (09:30)
[2017-07-06] MEDS: PRINIVIL PO SCH (09:30)
[2017-07-06] MEDS: ZOLOFT PO SCH ×2 (09:30→09:44)
[2017-07-06] MEDS: GLUCOPHAGE PO SCH ×2 (09:30→17:51)
--- NOTE | 2017-07-06 10:21 | PROGRESS NOTE ---
DATE: 07/06/2017 SUBJECTIVE: She is much more comfortable. Feels better. Slept well last night. She is eating well. Her leg still hurts but much less and much more comfortable. The area under her arms, hidradenitis drainage is diminished greatly. PHYSICAL EXAMINATION: Vital Signs: Temperature 98.2 degrees, pulse 80, respirations 18, blood pressure 158/86. Lungs: Are clear in all lung farah. Cardiovascular Examination: Regular rhythm and rate without murmur or S3. Abdomen: Soft. Skin: Is warm and dry. She has gauze under both arms and they appear dry for the most part. LAB: Reviewed from yesterday. Blood sugars in good control, 166, 146, and 90. ASSESSMENT AND PLAN: 1. Suppurative hidradenitis under both axillae. Plan on surgical intervention tomorrow. Continue present antibiotics. Appears to have clinical improvement, less drainage, remains afebrile. 2. Diabetes mellitus type 2. Sugars under great control. 3. Morbid obesity. 4. History of autoimmune connective tissue disease. Not sure of the details. 5. Review of her orders. I do not see any change at this point. cc: Eduin Segal MD
[2017-07-06] MEDS: NORCO-10 PO PRN (11:16)
[2017-07-06] MEDS: NS 1,000 ML IV SCH ×2 (11:17→14:20)
[2017-07-07] MEDS: NS 1,000 ML IV SCH ×2 (02:18→15:49)
[2017-07-07] MEDS: ZOFRAN IV PRN ×2 (03:58→22:22)
[2017-07-07] MEDS: DILAUDID IV PRN ×3 (03:58→22:23)
[2017-07-07] MEDS: ZOSYN 3.375 GM in NS 50 ML IV SCH ×4 (05:07→19:00)
[2017-07-07] MEDS: HUMULIN R SUBQ SCH ×4 (06:06→22:25)
--- NOTE | 2017-07-07 06:44 | PROGRESS NOTE ---
DATE: 07/07/2017 SUBJECTIVE: The patient is doing okay. No major changes. OBJECTIVE: Vital Signs: The patient is currently afebrile. Her vital signs have been stable. General: No acute distress. HEENT: Normocephalic, atraumatic. Pupils equal, round, react to light. Mucous membranes moist. Oropharynx benign. Neck: Supple. Trachea midline. Cardiovascular: Regular rate and rhythm. Lungs: Grossly clear. Abdomen: Soft, nontender, nondistended. Extremities: Hidradenitis still to both axilla centrally, unchanged, left worse than the right. Neurologic: Grossly intact. Skin: Hidradenitis as noted above. Vascular: All extremities perfused. ASSESSMENT AND PLAN: A 31-year-old female with hidradenitis of both axilla, with the left being more significant. 1. Hidradenitis of the left axilla. At this time, we will plan for surgical intervention today. The risks, benefits, and alternatives for this procedure were discussed. She is nothing by mouth. Consent has been written for. cc: Fer Gan MD
[2017-07-07] MEDS ORDERED: DIPRIVAN 1% ONE ×2 (08:57→18:13)
[2017-07-07] MEDS ORDERED: XYLOCAINE 1%/EPI 1:100,000 ONE (08:58)
[2017-07-07] MEDS ORDERED: XYLOCAINE-MPF 2% ONE ×2 (08:58→18:14)
[2017-07-07] MEDS ORDERED: MARCAINE 0.25% PF ONE (08:58)
[2017-07-07] MEDS ORDERED: VERSED ONE (09:13)
--- NOTE | 2017-07-07 09:18 | PROGRESS NOTE ---
DATE: 07/07/2017 PRESENT ILLNESS: The patient has hydradenitis suppurativa which is complicated by infection especially in the left axilla. MEDICATIONS: Patient is receiving vancomycin and Zosyn. This is the 4th day of treatment with the antibiotics. PHYSICAL EXAMINATION: Vital Signs: Temperature is 99 degrees, pulse 81, respirations 20, blood pressure 158/83. General: This is an obese, young female. She is in no acute distress this morning. Lungs: Clear to auscultation. Cardiovascular: Regular heart rate. Abdomen: Soft and nontender. Skin: The patient's left axilla has serosanguineous drainage. I did not see any pus. There is no odor to the wound. The patient's right axilla has hardly any discharge at all. There was not any erythema and no purulence either. Neither wound had necrosis in it. LAB AND X-RAY: CBC today shows a white count of 11,630, hemoglobin 8.9, and platelet count 263,000. Creatinine is 1.0. GFR is greater than 60. The wound from the left axilla grew diphtheroids and Proteus. Blood cultures are sterile. ASSESSMENT AND PLAN: Patient has hydradenitis suppurativa complicated by infection. The patient is scheduled for surgery today. I am going to continue with her current antibiotics pending further studies. The patient's comorbidities include obesity and diabetes mellitus. cc: Lionel Sultana MD
[2017-07-07] MEDS ORDERED: ZOFRAN ONE (09:42)
[2017-07-07] MEDS ORDERED: TORADOL ONE (09:42)
[2017-07-07] MEDS ORDERED: FENTANYL ONE (09:43)
[2017-07-07] MEDS ORDERED: ROBINUL ONE (10:02)
[2017-07-07] MEDS: DILAUDID ONE ×2 (10:47→11:08)
--- NOTE | 2017-07-07 10:54 | PROGRESS NOTE ---
DATE: 07/07/2017 SUBJECTIVE: She feels better, less pain. They are planning on doing the surgery and I think maybe placing a wound VAC under both axillae. PHYSICAL EXAMINATION: Vital Signs: Temperature is 99 degrees, pulse 80, respirations 20, blood pressure 158/83. Lungs: Are clear in all lung farah. Cardiovascular Examination: Regular rhythm and rate without murmur or S3. Abdomen: Soft. Extremities: There is no pedal edema. Is and Os: Urine output was 2600 mL. LABORATORY DATA: Lab reviewed from yesterday. White count 11,000, hematocrit is stable. Blood sugars hovering between 82 and 208 but look well controlled. Serum creatinine is 1. ASSESSMENT AND PLAN: 1. Suppurative hidradenitis. Continue present antibiotics. Less drainage. I think the plan is for surgery today. 2. Diabetes mellitus type 2. Sugars under reasonable control. 3. Morbid obesity. 4. She has a history of a mixed or an autoimmune connective tissue disease. We do not know the details. 5. I have reviewed her orders. I do not see any change at this point. Normal saline is going at 85 mL an hour. She is on vancomycin and Zosyn. cc: Eduin Segal MD
--- NOTE | 2017-07-07 14:01 | OPERATIVE NOTE ---
PROCEDURE DATE: 07/07/2017 PREOPERATIVE DIAGNOSIS: Hidradenitis suppurativa of the left axilla. POSTOPERATIVE DIAGNOSIS: Hidradenitis suppurativa of the left axilla. PROCEDURES PERFORMED: 1. Excision of left axillary hidradenitis (measurements 10 x 6 x 1 cm). 2. Placement of negative pressure wound dressing. SURGEON: Fer Gan MD STRUCTURAL METAL FABRICATOR APPRENTICE: None. ANESTHESIA: General endotracheal. INTRAOPERATIVE FINDINGS: Removed skin measured 10 x 6 x 1 cm. ESTIMATED BLOOD LOSS: 100 mL. HISTORY: The patient is a 31-year-old female with severe hidradenitis of the left axilla. It was felt the patient would benefit from excision. The risks, benefits, and alternatives were discussed. Given the active infection, we did not want to close and wound and placed a negative pressure wound dressing. This was all discussed with the patient. DESCRIPTION OF PROCEDURE: After informed consent was obtained, the patient was brought to the operating theater, placed on the operating table, and placed in supine position. General endotracheal anesthesia was then performed without complication. A formal time-out was then performed, confirming patient, date, and procedure. All were in agreement. At that time, attention was given to the left axilla. This area was prepped and draped in a sterile fashion. After the formal time-out, we made an elliptical incision around the hidradenitis as best we could of all the involved tissue that we could easily get to. This area measured 10 x 6 x 1 cm. We carried it all the way down to the subcutaneous tissue. There appeared to be normal healthy tissue. We maintained hemostasis with electrocautery. We then tailored a wound VAC using a black sponge and placed it in the wound. It was connected to suction, creating a seal with the dressing. The patient tolerated the procedure well and was transferred to the recovery room in stable condition. Postoperatively, we will change her wound VAC on Friday or . cc: Fer Gan MD
[2017-07-07] MEDS: GLUCOPHAGE PO SCH ×2 (15:48→18:27)
[2017-07-07] MEDS: FERROUS SULFATE PO SCH ×2 (15:49→22:22)
[2017-07-07] MEDS: PREDNISONE PO SCH (15:50)
[2017-07-07] MEDS: PRINIVIL PO SCH (15:50)
[2017-07-07] MEDS: VANCOMYCIN 2 GM in NS 500 ML IV SCH (15:58)
[2017-07-07] MEDS: ZOLOFT PO SCH ×2 (16:02→16:03)
[2017-07-07] MEDS: NORCO-10 PO PRN (17:46)
[2017-07-07] MEDS ORDERED: QUELICIN (DOSE) ONE (18:14)
--- NOTE | 2017-07-07 18:32 | PROGRESS NOTE ---
DATE: 07/07/2017 SUBJECTIVE: I was called by the nursing staff up to see the patient. She had a significant amount of bleeding on her left axilla were she had her wound VAC placed in surgery earlier today. She lost over 500 of blood it looked like in the area of the wound. There was a significant amount of clot. The wound VAC was not holding down. I removed the wound VAC at the bedside. There were 2 areas of active bleeding from small unnamed vessels. We held pressure. Given this bleeding and her development of tachycardia, we deemed it emergent to do this procedure. We therefore brought her down to surgery. Consent was deemed emergent. Therefore, we did not obtain consent. The patient was awake and agreed with the plan. cc: Fer Gan MD
[2017-07-07] MEDS: MORPHINE ONE ×3 (19:09→19:24)
[2017-07-07] MEDS ORDERED: MORPHINE ONE (19:37)
--- NOTE | 2017-07-07 22:54 | OPERATIVE NOTE ---
PROCEDURE DATE: 07/07/2017 PREOPERATIVE DIAGNOSIS: Bleeding and previous hidradenitis excision in the left axilla. POSTOP DIAGNOSIS: Bleeding and previous hidradenitis excision in the left axilla. PROCEDURE: 1. Ligation of bleeding vessel in the left axilla. 2. Placement of a negative pressure wound dressing. SURGEON: Fer Gan MD. FIELD CLINICAL ENGINEER: None. ANESTHESIA: General endotracheal. INTRAOPERATIVE FINDINGS: Multiple small blood vessels arterial bleeding were encountered at her previous hidradenitis site that were pulsating that we ligated with suture ligation. EBL: 20 mL. BRIEF HISTORY: Patient is 31-year-old -[place] female who earlier this day had removed 10 x 6 x 2 cm swath of skin in her left axilla. We had negative pressure wound dressing. At the completion the case her axilla was dry not actively bleeding. Upon arrival to the floor she did have significant amount of bleeding. The nurses held pressure, this did not seem to stop. The patient had lost at least 500 mL of blood. At that time was felt that given her mild tachycardia that she can be taken emergently to room. Emergent consent was obtained. DESCRIPTION OF PROCEDURE: After an emergent consent was obtained patient brought to operative theater, transferred the operative table placed supine position. General tracheal anesthesia was then performed without complication. Left axilla was prepped and draped in a semi sterile fashion. We had previously removed the old negative pressure dressing and emergent consent time- out was then obtained. We turned our attention to the bleeding area. There were 2 bleeding vessels that we encountered, they are both suture ligated with 3-0 Vicryl pops with good results. We used electrocautery for the other bleeding surfaces. We irrigated out the area copiously. We waited and paused on the area for a long period of time to allow any signs of bleeding which there was not. We placed a negative pressure wound dressing on in the standard fashion with a black sponge connected to suction. There is good results, it had a tight seal. The patient tolerated the procedure, was transferred recovery room in stable condition. Postoperatively will monitor for any signs of bleeding. cc: Fer Gan MD
[2017-07-08] MEDS: ZOSYN 3.375 GM in NS 50 ML IV SCH ×3 (00:59→12:58)
[2017-07-08] MEDS: NORCO-10 PO PRN ×4 (01:04→18:36)
[2017-07-08] MEDS: DILAUDID IV PRN (04:01)
[2017-07-08] MEDS: NS 1,000 ML IV SCH ×2 (04:02→14:14)
[2017-07-08] MEDS: ZOFRAN IV PRN ×3 (04:02→21:33)
[2017-07-08 06:22] LABS: MANUAL DIFF NEEDED? YES; MCH 25.8 PG (27-31); MONO% 5.9 % (1.7-9.3)
[2017-07-08] MEDS: HUMULIN R SUBQ SCH ×4 (06:37→21:33)
--- NOTE | 2017-07-08 06:47 | PROGRESS NOTE ---
DATE: 07/08/2017 SUBJECTIVE: Patient doing okay after her repeat trip to the operating room. She has had no active bleeding since the 2nd trip to the operating room. She has been doing well at this time. OBJECTIVE: Vital Signs: Patient is currently afebrile. Her vital signs are stable. General: No acute distress. Resting comfortably. Cardiovascular: Regular rate and rhythm. Lungs: Grossly clear. Abdomen: Soft, nontender, nondistended. Extremities: Wound VAC in place to the left upper extremity axilla. ASSESSMENT/PLAN: A 31-year-old, female, status post excision of hidradenitis the left axilla with return trip to the operating room for bleeding. 1. Postoperative state at this time. Patient is currently postoperative day 1. We will have wound care see her in the next 24-48 hours to potentially take down the wound VAC at the bedside. The patient is otherwise doing well. cc: Fer Gan MD MTDD
[2017-07-08 07:27] LABS: BANDS 2 % (0-1); EOS 2 % (1-10); LYMPHS 16 % (21-51); MONO 6 % (1-9)
[2017-07-08 07:37] LABS: BASO% 0.3 % (0.0-0.8); EOS# 0.11 X1000 (0.0-0.7); EOS% 0.9 % (0.0-10.0); HEMATOCRIT 17.6 % (37.0-47.0); HEMOGLOBIN 5.5 g/dL (12.0-16.0); IMM GRAN# 0.07 X1000 (0.0-0.04); IMM GRAN% 0.6 % (0.0-0.5); LYMPH# 2.18 X1000 (1.2-3.4); LYMPH% 18.5 % (20.5-51.1); MCHC 31.3 g/dL (33-37); MCV 82.6 FL (81-99); MONO# 0.69 X1000 (0.11-0.59); MPV 10.8 FL (7.4-10.4); NEUT% 73.8 % (42.2-75.2); PLT 238 X1000 (130-400); RBC 2.13 XMIL (4.2-5.4)
[2017-07-08] MEDS: ZOLOFT PO SCH ×2 (08:55→08:56)
[2017-07-08] MEDS: FERROUS SULFATE PO SCH ×2 (08:55→21:33)
[2017-07-08] MEDS: GLUCOPHAGE PO SCH ×2 (08:55→16:54)
[2017-07-08] MEDS: PREDNISONE PO SCH (08:55)
[2017-07-08] MEDS: PRINIVIL PO SCH (08:56)
[2017-07-08] MEDS ORDERED: NS 500 ML ONE (09:45)
[2017-07-08] MEDS: MORPHINE IV PRN ×3 (09:47→21:34)
--- NOTE | 2017-07-08 13:48 | PROGRESS NOTE ---
DATE: 07/08/2017 PRESENT ILLNESS: The patient has hydradenitis suppurativa complicated by infection, primarily in the left axilla. Yesterday she underwent surgery with excision of the hidradenitis suppurativa. She bled postoperatively which required another surgery to stop the bleeding. MEDICATIONS: This is the 5th day of treatment with vancomycin and Zosyn. PHYSICAL EXAMINATION: Vital Signs: Temperature is 99.3 degrees, pulse 83, respirations 20, blood pressure 146/72. General: This is an obese, young female. She is in no acute distress at this time. Lungs: Clear to auscultation. Cardiovascular: Regular heart rate. Abdomen: Soft and nontender. Integument: The left axilla has a VAC in place. There is no gross bleeding at this time. There is no odor and there is no purulence noted. LAB AND X-RAY: [place] [address], hemoglobin 5.5 and platelet count 238,000. There is no new microbiology data. ASSESSMENT AND PLAN: Patient has hydradenitis complicated by infection. The plan is to continue the patient's antibiotics. COMORBIDITIES: Include obesity and diabetes mellitus. cc: Lionel Sultana MD MTDD
--- NOTE | 2017-07-08 15:57 | PROGRESS NOTE ---
DATE: 07/08/2017 SUBJECTIVE: Today, Ms. Nixon referred to be doing a little better. She continues to have a wound VAC in place. OBJECTIVE: Vital Signs: Blood pressure is 136/76, pulse of 73, respirations 18, temperature is 98.5 degrees. General: Ms. Nixon is a 31-year-old, -[place] female. She is in bed, morbidly obese, does not seems to be in remarkable distress. HEENT: Mucosa is slightly pale. Anicteric. Acyanotic. Neck is supple. Chest: Clear. Cardiovascular: Regular rate and rhythm. Abdomen is soft. Extremities: No pedal edema. NET DEVELOPER CONTRACT: The patient is alert and oriented. There is no focal neurological deficit. LABORATORY DATA: WBC is 11.78, hemoglobin has dropped to 5.5, platelet count is normal. Chemistry: None except for glucose which is 119. CURRENT MEDICATIONS: 1. Tylenol. 2. [place]. 3. Insulin, sliding scale. 4. Iron sulfate. 5. Lisinopril 10 mg daily. 6. Glucophage 500 b.i.d. 7. Robaxin. 8. Vancomycin per pharmacy. 9. Morphine 2 mg IV q.12 p.r.n. 10. Zosyn 3.375 g 6 h. 11. Prednisone 20 mg daily. ASSESSMENT: 1. Left axilla hidradenitis, status post excision of the axillary hidradenitis with placement of negative pressure wound dressing. The patient had to go for a second surgery yesterday due a bleeding vessel. The wound so far is positive for Proteus mirabilis and diphtheroids. Will continue with the current antibiotic as per Infectious Disease recommendations. 2. Anemia secondary to acute blood loss from surgery. The patient has been grouped and crossmatched for 2 units of PRBC transfusion today. 3. Diabetes mellitus. We will continue insulin per sliding scale. 4. Morbid obesity. Patient has been counseled. cc: Devin Valerio MD
[2017-07-08] MEDS ORDERED: CHLORASEPTIC SPRAY MT PRN (17:18)
[2017-07-08] MEDS: VANCOMYCIN 2 GM in NS 500 ML IV SCH (18:11)
[2017-07-08 22:22] LABS: HEMATOCRIT 27.5 % (37.0-47.0); HEMOGLOBIN 8.9 g/dL (12.0-16.0)
[2017-07-09] MEDS: ZOSYN 3.375 GM in NS 50 ML IV SCH ×6 (01:10→23:28)
[2017-07-09] MEDS: NORCO-10 PO PRN ×4 (01:11→23:31)
[2017-07-09] MEDS: MORPHINE IV PRN ×6 (03:04→20:06)
[2017-07-09] MEDS: ZOFRAN IV PRN ×5 (03:05→23:28)
[2017-07-09] MEDS: HUMULIN R SUBQ SCH ×4 (06:03→22:09)
[2017-07-09 06:27] LABS: MANUAL DIFF NEEDED? NO
[2017-07-09 06:30] LABS: BASO% 0.2 % (0.0-0.8); EOS# 0.08 X1000 (0.0-0.7); EOS% 0.7 % (0.0-10.0); HEMATOCRIT 24.6 % (37.0-47.0); HEMOGLOBIN 8.1 g/dL (12.0-16.0); IMM GRAN# 0.02 X1000 (0.0-0.04); IMM GRAN% 0.2 % (0.0-0.5); LYMPH# 2.09 X1000 (1.2-3.4); LYMPH% 17.4 % (20.5-51.1); MCH 27.9 PG (27-31); MCHC 32.9 g/dL (33-37); MCV 84.8 FL (81-99); MONO# 0.61 X1000 (0.11-0.59); MONO% 5.1 % (1.7-9.3); MPV 10.5 FL (7.4-10.4); NEUT% 76.4 % (42.2-75.2); PLT 236 X1000 (130-400)
[2017-07-09 06:50] LABS: AGAP 11; BUN 6 mg/dL (8-22); CALCIUM 7.9 mg/dL (8.8-10.2); CHLORIDE 103 mmol/L (98-107); COSMO 275; SODIUM 139 mmol/L (136-145); TCO2 25 mmol/L (25-35)
--- NOTE | 2017-07-09 06:54 | PROGRESS NOTE ---
DATE: 07/09/2017 SUBJECTIVE: Patient doing okay. No major issues. OBJECTIVE: Vital Signs: Patient is currently afebrile. Her vital signs are stable. General Examination: No acute distress. Resting comfortably. Cardiovascular: Regular rate and rhythm. Lungs: Grossly clear. Abdomen: Soft, nontender, nondistended. Extremities: Wound VAC in place. ASSESSMENT/PLAN: A 31-year-old, -[place] female status post excision of hidradenitis of left axilla. We placed a negative pressure wound dressing. Postoperative state. At this time, patient is currently postoperative day 2. We will have wound care see her today or tomorrow to potentially take down the wound VAC. We will need to start arranging home wound VAC care so she could potentially be discharged with a wound VAC and follow up with me at wound care. cc: Fer Gan MD
[2017-07-09] MEDS: PREDNISONE PO SCH (08:24)
[2017-07-09] MEDS: FERROUS SULFATE PO SCH ×2 (08:25→20:06)
[2017-07-09] MEDS: ZOLOFT PO SCH ×2 (08:25)
[2017-07-09] MEDS: PRINIVIL PO SCH (08:25)
[2017-07-09] MEDS: GLUCOPHAGE PO SCH ×2 (08:25→16:33)
[2017-07-09] MEDS: NS 1,000 ML IV SCH ×2 (08:29→20:06)
[2017-07-09] MEDS ORDERED: KLOR-CON PO ONE (08:39)
[2017-07-09] MEDS ORDERED: DILAUDID IV ONE ×2 (13:35→14:00)
--- NOTE | 2017-07-09 14:57 | PROGRESS NOTE ---
DATE: 07/09/2017 SUBJECTIVE: The patient has hydradenitis suppurativa which was complicated by an infection primarily involving the left axilla. MEDICATIONS: This is the sixth day of treatment with vancomycin and Zosyn. PHYSICAL EXAMINATION: Vital Signs: Temperature is 98.2, pulse 76, respirations 20, blood pressure 129/65. General: This is an obese, young female, who is in no acute distress. Lungs: Clear to auscultation. Cardiovascular: Regular heart rate. Abdomen: Soft and nontender. Skin: In the left axilla, the patient's VAC has been removed. All of the tissue seen is beefy red in color. There is no odor and there is no purulence or necrosis noted. LAB AND X-RAY: The CBC today showed a white count of 12,030, hemoglobin 8.1 and platelet count 236,000. Creatinine is 1. GFR is greater than 60. ASSESSMENT AND PLAN: The patient has hydradenitis complicated by infection. I have printed out a prescription for Augmentin 875 mg p.o. every 12 hours with food #30 for 15 days. The patient will have follow up with Dr. Gan. I am available to see the patient on a p.r.n. basis. COMORBIDITIES: The patient's comorbidities include diabetes mellitus and obesity. cc: Lionel Sultana MD
[2017-07-09] MEDS: VANCOMYCIN 2 GM in NS 500 ML IV SCH (16:33)
--- NOTE | 2017-07-09 17:16 | PROGRESS NOTE ---
DATE: 07/09/2017 SUBJECTIVE: Today Ms. Nixon referred to be doing a lot better. Has already been evaluated by wound care, surgery, and ID, and everybody seems to be on board to make all the arrangements necessary for her discharge tomorrow. She refers to have minimal pain on the left armpit, otherwise denies any fever, chills or any other complaints. OBJECTIVE: Vital signs: Blood pressure is 156/86, pulse of 73, respirations 18, temperature 98.2 degrees. Patient is saturating 98% on room air. General: Ms. Nixon is an 81-year-old morbidly obese, female with a BMI of 41.6. She is in bed, not seemingly distressed. HEENT: Mucosa is pink and moist. Anicteric. Acyanotic. Neck: Supple. Chest: Clear. Cardiovascular: Regular rate and rhythm. Abdomen: Soft, nontender. Extremities: No pedal edema. SUPPLY CRIB ATTENDANT: Patient is awake, alert and oriented x 4. There is no focal neurological deficit. LABORATORY DATA: Hemoglobin and hematocrit is 8.1. Rest of lab work is normal. Potassium is 3.0. Glucose is 97 this morning. ASSESSMENT: 1. Left axillary suppurativa hidradenitis status post excision and placement of wound VAC. The culture is positive for Proteus mirabilis and diphtheroids, and there is a plan from ID to send the patient home on p.o. antibiotics tomorrow. The patient also has been seen by surgery and wound care, and they are arranging for wound VAC for her to go home with. 2. Anemia secondary to acute blood loss. The patient is status post 2 packed red blood cell transfusion. Hemoglobin and hematocrit is stable this morning. 3. Diabetes mellitus, controlled. 4. Morbid obesity. So in general, I think Ms. Nixon is relatively stable. She will be discharged tomorrow morning on oral antibiotics. We are pending the final arrangement for approval for wound VAC to go home with. cc: Devin Valerio MD
[2017-07-10] MEDS: ZOFRAN IV PRN ×2 (05:58→10:13)
[2017-07-10] MEDS: MORPHINE IV PRN ×2 (05:58→10:07)
[2017-07-10] MEDS: ZOSYN 3.375 GM in NS 50 ML IV SCH ×2 (05:58→11:34)
[2017-07-10] MEDS: HUMULIN R SUBQ SCH ×2 (05:59→11:29)
[2017-07-10 06:35] LABS: HEMATOCRIT 25.5 % (37.0-47.0); HEMOGLOBIN 8.3 g/dL (12.0-16.0)
--- NOTE | 2017-07-10 06:53 | PROGRESS NOTE ---
DATE: 07/10/2017 SUBJECTIVE: Patient had her wound VAC changed by Jackie Fernández with Wound Care. Everything went well. The wound, itself, looks good. OBJECTIVE: Vital Signs: Patient is currently afebrile. Her vital signs have been stable. General: No acute distress. Resting comfortably in bed. Cardiovascular: Regular rate and rhythm. Lungs: Grossly clear. Abdomen: Soft, nontender, nondistended. Extremities: Wound VAC in place with good seal. ASSESSMENT AND PLAN: A 31-year-old, -[place] female, status post excision of left axilla for hidradenitis. Postoperative state at this time: The patient seems to be doing okay. She had her wound VAC changed at the bedside. Hopefully, she can be discharged home with a wound VAC changes with home health. I need to see her back in my office at [facility] [place] next . cc: Fer Gan MD
[2017-07-10 07:25] LABS: AGAP 11; BUN 5 mg/dL (8-22); CALCIUM 9.1 mg/dL (8.8-10.2); CHLORIDE 107 mmol/L (98-107); COSMO 283; POTASSIUM 3.8 mmol/L (3.5-5.1); SODIUM 144 mmol/L (136-145); TCO2 26 mmol/L (25-35)
[2017-07-10 08:13] VITALS: BP 153/82
[2017-07-10] MEDS: NORCO-10 PO PRN ×2 (08:15→12:09)
[2017-07-10] MEDS: PRINIVIL PO SCH (10:06)
[2017-07-10] MEDS: FERROUS SULFATE PO SCH (10:06)
[2017-07-10] MEDS: ZOLOFT PO SCH ×2 (10:06→10:07)
[2017-07-10] MEDS: GLUCOPHAGE PO SCH (10:06)
[2017-07-10] MEDS: PREDNISONE PO SCH (10:07)
--- NOTE | 2017-07-10 10:40 | PROGRESS NOTE ---
DATE: 07/10/2017 PRESENT ILLNESS: The patient has hidradenitis suppurativa. It was complicated by infection. She has undergone surgery with excision of the tissue. MEDICATIONS: The patient is on vancomycin and Zosyn for the 7th day. PHYSICAL EXAMINATION: Vital signs: Temperature is 98.9, pulse 84, respirations 14, blood pressure 158/90. General: This is an obese young female. She is in no acute distress. Lungs: Clear to auscultation. Cardiovascular: Regular heart rate. Abdomen: Soft and nontender. Axillae: The left axilla was inspected. The VAC is in place. There is no odor and no purulence visualized. LABORATORY AND X-RAY: The patient's hemoglobin and hematocrit were 8.3 and 25.5 respectively. Creatinine is 1.1. GFR is greater than 60. There is no new further lab, and also there is no radiographic study for today. ASSESSMENT AND PLAN: Patient is status post surgery on infected hidradenitis suppurativa. Currently, the patient has a VAC in place in the left axilla. I have electronically printed a prescription for Augmentin for the patient to take for the next 15 days. She will have followup care with the surgeon who operated on her, namely Dr. Gan. The patient's main comorbidities include diabetes mellitus and obesity. cc: Lionel Sultana MD
[2017-07-10] MEDS ORDERED: PNEUMOVAX 23 IM ONE (13:30)
--- NOTE | 2017-08-14 06:38 | DISCHARGE SUMMARY ---
ADMISSION DATE: 07/03/2017 DISCHARGE DATE: 07/10/2017 DISPOSITION: Home. FOLLOWUP: Dr. Sultana, Dr. Gan, patient's PCP. CONSULTATION DURING THIS ADMISSION: Surgery was consulted. Patient was seen by Dr. Gan. ID was consulted. Patient was seen by Dr. Sultana. IMAGING STUDIES OF SIGNIFICANCE: None. INTERVENTION DONE DURING THIS ADMISSION: Surgery was done twice by Dr. Gan. One was excision of left axillary hidradenitis measuring 10 x 6 x 1 cm and then the placement of a negative pressure dressing. Subsequently another one had to be done because of acute blood loss and Dr. Gan went in and did ligation of a blood vessel in the left axillary. PRESENTING COMPLAINT: Patient having issues with her hidradenitis and came in for further medical care. HISTORY OF PRESENTING COMPLAINT: Ms. Nixon is an female who presented to the emergency department because of oozing and infection of hydradenitis. The patient was admitted for further medical care. HOSPITAL COURSE: The patient was admitted to the medical floor. Surgery was consulted and there was the need for a debridement which was successfully done. However after the debridement the patient had a huge drop in her hemoglobin and hematocrit and continued to bleed so an intervention had to be done. Subsequently patient did very well. ID was consulted. The antibiotics were changed and at the day of discharge, the patient was placed on Augmentin. The patient's other comorbidities were all addressed. She was sent home in a very stable condition. Time spent for discharge was 37 minutes. cc: Devin Valerio MD
== END 2017-07-10 14:05 | disposition home health service (06) ==
LOC: ED 10:47 → SUATTDRO 14:44 → 4N 14:44
PROVIDERS: ATTEND Internal Medicine

== ENCOUNTER 2019-01-06 10:45 | Inpatient (IN) ==
[2019-01-06 11:40] LABS: BASO# 0.01 X1000 (0.0-0.2); BASO% 0.2 % (0.0-0.8); EOS# 0.05 X1000 (0.0-0.7); EOS% 0.9 % (0.0-10.0); HEMATOCRIT 33.6 % (37.0-47.0); HEMOGLOBIN 10.9 g/dL (12.0-16.0); LYMPH# 1.66 X1000 (1.2-3.4); LYMPH% 29.7 % (20.5-51.1); MCH 24.5 PG (27-31); MCHC 32.4 g/dL (33-37); MCV 75.7 FL (81-99); MONO# 0.32 X1000 (0.11-0.59); MONO% 5.7 % (1.7-9.3); MPV 10.5 FL (7.4-10.4); NEUT# 3.54 X1000 (1.4-6.5); NEUT% 63.5 % (42.2-75.2); PLT 275 X1000 (130-400); RBC 4.44 XMIL (4.2-5.4); RDW 15.1 % (11.5-14.5); WBC 5.58 X1000 (4.8-10.8)
[2019-01-06 11:56] LABS: ACETONE SERUM NEGATIVE (NEGATIVE)
[2019-01-06 11:59] LABS: BE -0.6 mmoll (-3.0-3.0); BLOOD TYPE ARTERIAL; HCO3-(ACT) 24.5 mmoll (20.0-26.0); METHB 1.1 % (0.0-1.5); O2(CT) 14.9 mL/dL (15.0-23.0); O2HB 96.7 % (95.0-99.0); PCO2(98.6) 30 mmHg (35-45); PO2(98.6) 120 mmHg (60-100); SAMPLE BLOOD; SAO2 100.5 % (95.0-100.0); THB 10.8 g/dL (11.5-17.4); pH(98.6) 7.48 (7.35-7.45)
[2019-01-06 12:01] LABS: BILIRUBIN URINE NEGATIVE (NEGATIVE); BLOOD URINE NEGATIVE (NEGATIVE); CLARITY CLEAR (CLEAR); COLOR YELLOW; GLUCOSE URINE NEGATIVE (NEGATIVE); KETONE URINE NEGATIVE (NEGATIVE); LEUKOCYTES URINE NEGATIVE (NEGATIVE); NITRITE URINE NEGATIVE (NEGATIVE); PROTEIN URINE NEGATIVE (NEGATIVE); UROBILINOGEN URINE NORMAL
[2019-01-06 12:03] LABS: URINE EPITHELIAL CELLS <10 /HPF (<10); URINE SOURCE CLEAN CATCH
--- NOTE | 2019-01-06 12:04 | EKG Report ---
Test Performed on : 01/06/2019 11:40:34 AM Test Reason : AMS Blood Pressure : / mmHG Vent. Rate : 092 BPM Atrial Rate : 092 BPM P-R Int : 160 ms QRS Dur : 066 ms QT Int : 356 ms P-R-T Axes : 048 055 004 degrees QTc Int : 440 ms Normal sinus rhythm. Normal ECG When compared with ECG of 19-NOV-2016 16:49, No significant change was found Unconfirmed Result
[2019-01-06 12:08] LABS: AGAP 11; ALBUMIN 3.8 g/dL (3.5-5.0); ALKALINE PHOSPHATASE 93 U/L (32-104); BUN 5 mg/dL (8-22); CALCIUM 8.8 mg/dL (8.8-10.2); CHLORIDE 104 mmol/L (98-107); COSMO 274; CREATININE 0.5 mg/dL (0.5-0.9); ESTIMATED GFR > 60; GLUCOSE 80 mg/dL (70-104); GOT 13 U/L (10-30); GPT 8 U/L (10-36); POTASSIUM 4.1 mmol/L (3.5-5.1); SODIUM 139 mmol/L (136-145); TCO2 24 mmol/L (25-35); TOTAL PROTEIN 7.4 g/dL (6.3-8.3)
[2019-01-06 12:10] LABS: UR AMPHETAMINES QUAL NONE DETECTED (NONE DETECT); UR BARBITUATES QUAL NONE DETECTED (NONE DETECT); UR BENZODIAZEPIN QUAL PRESUMPTIVE POSITIVE (NONE DETECT); UR CANNABINOIDS QUAL NONE DETECTED (NONE DETECT); UR COCAINE QUAL NONE DETECTED (NONE DETECT); UR METHADONE QUAL NONE DETECTED (NONE DETECT); UR METHAMPHETAMINE QUAL NONE DETECTED (NONE DETECT); UR OPIATES QUAL NONE DETECTED (NONE DETECT); UR OXYCODONE QUAL NONE DETECTED (NONE DETECT); UR PCP QUAL NONE DETECTED (NONE DETECT); UR PROPOXYPHENE QUAL NONE DETECTED (NONE DETECT); UR TCA QUAL NONE DETECTED (NONE DETECT)
[2019-01-06 12:12] LABS: ALLEN TEST YES; MODALITY ROOM AIR
--- NOTE | 2019-01-06 12:14 | Diag Imaging Result Doc PS360 ---
CHEST-1 VIEW - 01/06/2019 INDICATION: AMS, HTN COMPARISON: 07/03/2017 FINDINGS: The lungs are normally expanded and clear. Heart size and mediastinal contours are normal. No pneumothorax or pleural effusion. IMPRESSION: Negative exam. Electronically signed by Simón Catalan 01/06/2019 12:12 PM
--- NOTE | 2019-01-06 12:20 | Diag Imaging Result Doc PS360 ---
EXAM: CT HEAD W/O CONTRAST 01/06/2019 HISTORY: AMS TECHNIQUE: This exam was performed using automated exposure control, adjustment of mA or kV according to patient size, and/or use of iterative reconstruction technique. COMMENT: There is no evidence of mass effect, bleed, abnormal extra-axial fluid collection, or hydrocephalus. Compared to the previous study of 01/20/2017 there has been no significant change in the appearance the brain. IMPRESSION: No evidence of acute disease. Electronically signed by Anup Gallardo 01/06/2019 12:18 PM
[2019-01-06 12:25] LABS: INFLUENZA A NEGATIVE (NEGATIVE); INFLUENZA B NEGATIVE (NEGATIVE)
[2019-01-06 12:43] LABS: CK INDEX 2.9 (0.0-2.5); CK-MB 6.23 ng/mL (0.0-5.0)
[2019-01-06] MEDS ORDERED: LOPRESSOR 10 MG in NS 50 ML IV ONE (13:53)
[2019-01-06] MEDS ORDERED: ZOFRAN IV ONE (13:54)
[2019-01-06] MEDS ORDERED: TORADOL IV ONE (13:54)
[2019-01-06] MEDS ORDERED: LOPRESSOR IV ONE (13:57)
[2019-01-06] MEDS ORDERED: PRINIVIL PO ONE (13:58)
[2019-01-06] MEDS ORDERED: ZOFRAN IV PRN (16:58)
[2019-01-06] MEDS ORDERED: NORCO-5 PO ONE (16:58)
[2019-01-06] MEDS ORDERED: TYLENOL PO PRN (16:58)
[2019-01-06] MEDS ORDERED: FLU VACCINE IM ONE (18:56)
--- NOTE | 2019-01-06 18:56 | HISTORY AND PHYSICAL ---
CHIEF COMPLAINT: Altered mental status. HISTORY OF PRESENT ILLNESS: This is a 33-year-old morbidly obese female, who presented to the emergency room via EMS after being called by her sister after finding the patient unresponsive. Evidently, the patient was in her normal state of health, and the sister went to the store. The sister stated that the patient has been sleeping off and on the last few days. She did vomit yesterday. She stated that she would wake up, screaming in pain. The patient does have a history of rheumatoid arthritis, She uses a walker or a wheelchair. The patient stated that she was seeing Dr. Watkins for pain management, and he had suggested fentanyl patches. She stated that she was scared of the patches, they argued, and he discharged her from his service. She has had no official pain management since. This was back in April or May. During the interview, she answers every question with, "I'm just hurting all over. I need medicine," then she will answer go on to answer the question that I asked. She does cry at times. She stated that she and her sister both have spells of passing out. They are not sure what causes them. She denied any seizure activity, any loss of bowel or bladder control. PAST MEDICAL HISTORY: Chronic pain, rheumatoid arthritis, non-insulin- dependent diabetes mellitus, hypertension, and morbid obesity. PAST SURGICAL HISTORY: Excision of axillary hydradenitis suppurativa right axilla and left axilla. SOCIAL HISTORY: She lives with her sister. She denies any alcohol or illicit drug use or tobacco use. ALLERGIES: Benadryl with unknown reaction. HOME MEDICATIONS: A list will be obtained by the nursing staff, and once verified, we will review and restart as is appropriate. PHYSICAL EXAMINATION: GENERAL: This is a morbidly obese 33-year-old female, who is lying flat on the stretcher in the emergency room, watching TV. VITAL SIGNS: Blood pressure is 135/81, heart rate of 85, respirations are 18, temperature is 98.5 degrees oral with room air saturations 100%. EYES: Pupils equal, round, react to light. EOMs are intact. Sclerae are anicteric. HEENT: Head is normocephalic, atraumatic. Mucous membranes are moist. NECK: Supple with trachea midline. CARDIOVASCULAR: Regular rate and rhythm. S1 and S2 appreciated. Peripheral pulses are palpable x4 extremities. She does have some pedal edema bilateral. PULMONARY: Breath sounds are clear with no increased work of breathing noted. Chest does rise and fall symmetrically with respiration. GASTROINTESTINAL: Large, soft, nontender, nondistended with bowel sounds in all 4 quadrants. SKIN: Warm and dry with no rashes or lesions noted. NEUROLOGIC: She is alert, she is oriented. She is cooperative. She is calm. Cranial nerves 2- 12 grossly intact. DIAGNOSTIC STUDIES: WBC is 5.5 with hemoglobin 10.9, hematocrit 33.6, and platelets 275,000. Sodium is 139, potassium 4.1, BUN 5, creatinine 0.5 with a glucose of 80. CPK is 215 with a CK-MB of 6.23 and troponin is negative. Urinalysis is essentially negative. Urine drug screen is presumptive positive for benzodiazepines. Influenza A, influenza B and group A strep are all negative. Blood cultures and throat culture are pending. Chest x-ray reveals a negative exam. Lungs are normally expanded and clear. Heart size and mediastinal contours are normal. No pneumothorax or pleural effusion. CT of the head reveals no evidence of acute disease. ASSESSMENT AND PLAN: 1. Acute Delirium. This has resolved. We will follow with neurological checks and monitor. 2. Hypertension. We will identify the patient's home medications and continue as is appropriate. 3. Mild rhabdomyolysis. She was found on the floor. She has a CPK of 215 with a CK-MB of 6.23. We will repeat labs in the morning. It looks like she has not been hydrated. We will hydrate and monitor. 4. Diabetes mellitus, type 2. She will be placed on patterned blood glucose with sliding scale insulin. 5. Anxiety. We will repeat a CBC, a CMP, a magnesium, a TSH, as well as a total CPK in the morning. Further treatments pending hospital course. Dictated by DAVID Babcock for Chico Cassidy MD This chart was documented by, DAVID Babcock and accurately reflects the services performed, treatment plan and medical decisions as attested by the providers signature Chico Cassidy MD. cc: DAVID Babcock MD [facility]
[2019-01-06] MEDS: FERROUS SULFATE PO SCH (20:22)
[2019-01-06] MEDS: ELAVIL PO SCH (20:22)
[2019-01-06] MEDS: NS 1,000 ML IV SCH (20:22)
[2019-01-06] MEDS: HUMALOG (PARKWAY) SUBQ SCH (21:19)
[2019-01-06] MEDS: NORCO-7.5 PO PRN (21:19)
--- NOTE | 2019-01-06 21:52 | HISTORY AND PHYSICAL ---
Patient seen and examined by myself. Full note dictated and discussed with nurse practitioner. Patient presented to the hospital with altered mental status. Currently she seems awake, alert, oriented. Her symptoms appear to have resolved and she appears back to her baseline. She apparently has had spells of passing out that started after mom got sick and continues after mom . Her blood pressures are elevated 187/125 initially in the ER. We will admit her to the hospital. Control her blood sugars and we will follow. cc: Chico Cassidy MD
[2019-01-07] MEDS: NORCO-7.5 PO PRN ×4 (01:30→18:11)
[2019-01-07] MEDS: NS 1,000 ML IV SCH ×2 (05:21→18:14)
[2019-01-07 06:22] LABS: BASO# 0.01 X1000 (0.0-0.2); BASO% 0.3 % (0.0-0.8); EOS# 0.03 X1000 (0.0-0.7); EOS% 0.8 % (0.0-10.0); HEMATOCRIT 30.9 % (37.0-47.0); HEMOGLOBIN 9.7 g/dL (12.0-16.0); IMM GRAN# 0.01 X1000 (0.0-0.04); IMM GRAN% 0.3 % (0.0-0.5); LYMPH# 1.78 X1000 (1.2-3.4); LYMPH% 49.2 % (20.5-51.1); MCH 23.9 PG (27-31); MCHC 31.4 g/dL (33-37); MCV 76.1 FL (81-99); MONO# 0.24 X1000 (0.11-0.59); MONO% 6.6 % (1.7-9.3); MPV 10.6 FL (7.4-10.4); NEUT# 1.55 X1000 (1.4-6.5); NEUT% 42.8 % (42.2-75.2); PLT 240 X1000 (130-400); RBC 4.06 XMIL (4.2-5.4); RDW 14.9 % (11.5-14.5); WBC 3.62 X1000 (4.8-10.8)
[2019-01-07] MEDS: HUMALOG (PARKWAY) SUBQ SCH ×4 (06:24→21:05)
[2019-01-07 06:44] LABS: AGAP 12; ALBUMIN 3.5 g/dL (3.5-5.0); ALKALINE PHOSPHATASE 88 U/L (32-104); BUN 6 mg/dL (8-22); CALCIUM 8.5 mg/dL (8.8-10.2); CHLORIDE 103 mmol/L (98-107); COSMO 274; CREATININE 0.6 mg/dL (0.5-0.9); ESTIMATED GFR > 60; GLUCOSE 119 mg/dL (70-104); GOT 12 U/L (10-30); GPT 8 U/L (10-36); MAGNESIUM 1.8 mg/dL (1.5-2.7); POTASSIUM 3.5 mmol/L (3.5-5.1); SODIUM 138 mmol/L (136-145); TCO2 24 mmol/L (25-35); TOTAL BILIRUBIN < 0.15 mg/dL (0.20-1.00); TOTAL PROTEIN 6.8 g/dL (6.3-8.3)
[2019-01-07 06:47] LABS: MAGNESIUM 1.8 mg/dL (1.5-2.7)
[2019-01-07] MEDS ORDERED: VITAMIN D PO SCH (09:00)
[2019-01-07] MEDS: ZOFRAN IV PRN (10:22)
[2019-01-07] MEDS: FLEXERIL PO SCH (10:22)
[2019-01-07] MEDS: PRINIVIL PO SCH (10:22)
[2019-01-07] MEDS: PAXIL PO SCH (10:22)
[2019-01-07] MEDS: FERROUS SULFATE PO SCH ×2 (10:22→21:04)
[2019-01-07] MEDS: FOLIC ACID PO SCH (10:22)
[2019-01-07] MEDS: BUSPAR PO SCH (10:22)
--- NOTE | 2019-01-07 15:51 | PROVIDER DOCUMENTATION ---
This chart was entered by Sara Staton Scribe, acting as scribe for Yogi Alvares MD. HPI-Psychological Disorder - General Chief Complaint: Altered Mental Status Stated Complaint: CONFUSED Time Seen by Provider: 01/06/19 11:00 Source: patient, family, RN/MD Allergies/Adverse Reactions: Patient Allergies Allergy/AdvReac Type Severity Reaction Status Date / Time diphenhydramine HCl * AdvReac Mild Unknown Verified 10/27/17 08:29 [From [facility]] Home Medications: Home Medication List Medication Instructions Recorded Confirmed Last Taken Type Lisinopril 10 mg PO DAILY 01/15/17 01/06/19 10/26/17 09:00 History Ferrous Sulfate 1 tab PO BID 04/11/17 01/06/19 10/26/17 21:00 History Metformin HCl 1 tab PO BID 04/11/17 01/06/19 10/26/17 21:00 History Folic Acid 1 mg PO DAILY 07/06/17 01/06/19 10/26/17 09:00 History Amitriptyline HCl 10 mg PO HS 01/06/19 01/06/19 Unknown History Buspirone HCl 10 mg PO DAILY 01/06/19 01/06/19 Unknown History Clonidine [Catapres] 0.1 mg PO PRN PRN 01/06/19 01/06/19 Unknown History Cyclobenzaprine HCl 10 mg PO DAILY 01/06/19 01/06/19 Unknown History Ergocalciferol (Vitamin D2) 50,000 unit PO DAILY 01/06/19 01/06/19 Unknown History [Vitamin D2] Paroxetine HCl 20 mg PO DAILY 01/06/19 01/06/19 Unknown History Prednisone 20 mg PO DAILY 01/06/19 01/06/19 Unknown History - History of Present Illness-Psych Nature of Presenting Problem: 33 yof presents w/sister to er w/co pt found unresponsive by sister today. pt taken to er via first response. pt has been sleeping on and off, vomiting yesterday and waking up screaming in pain, pt's hands are contracted. pt has hx of DM, htn, and RA and walks with walker or wheelchair. pt is tearful and still confused in exam. pts bp is 187/125 in ed. pt's mother has recently . went back in to speak to pt and sister and stated that she was having spells of passing out before mom and sister reports she has the same symptoms at times too. pt reports taking liprinosil for htn. Review of Systems - Adult - REVIEW OF SYSTEMS - ADULT Constitutional: reports: no symptoms reported Eyes: reports: no symptoms reported Ears, Nose, Mouth & Throat: reports: no symptoms reported Cardiovascular: reports: no symptoms reported Respiratory: reports: no symptoms reported Gastrointestinal: reports: no symptoms reported Genitourinary: reports: no symptoms reported Musculoskeletal: reports: see HPI, joint pain, other (pt in pain, bilateral hands contracted) Integumentary: reports: no symptoms reported Neurological: reports: no symptoms reported Psychiatric: reports: see HPI, other (confused, found unresponsive) Endocrine: reports: no symptoms reported Hematologic/Lymphatic: reports: no symptoms reported Allergic/Immunologic: reports: no symptoms reported All Other Systems: Reviewed and Negative Past History - Adult - PAST MEDICAL HISTORY-ADULT Review of Records: reports: Old Records Reviewed, Nursing Assessment Review, Medications Reviewed, Social history reviewed & non-contributory. Major Childhood Illnesses: reports: history unknown Cardiovascular: reports: HTN Respiratory: reports: denies history Gastrointestinal: reports: denies history Obstetrical/Gynecological: reports: denies history Genitourinary: reports: denies history Musculoskeletal: reports: arthritis Neurological: reports: denies history Endocrine/Immune: reports: Diabetes Other Conditions: reports: denies history Additional History: auto immune inflammatory disease - PRIOR SURGERIES/PROCEDURES Surgical/Procedure History: reports: other (right axilla 715, under left arm) - IMMUNIZATION STATUS Childhood Immunizations: See Nurse Assessment Flu Vaccine: See Nurse Assessment - FAMILY HISTORY Family History: reviewed, not pertinent - SOCIAL HISTORY Smoking: other (former) Substance Use: none/never Physical Exam-Psych Focus - Physical Exam-Psych Initial Vital Signs Reviewed: Yes Appearance: anxious, disheveled, impaired insight, impaired recent memory, impaired remote memory, lethargic, mild distress. negative: appropriate appearance, appropriate insight, neat, no apparent distress Neurological: depressed affect, disoriented x 3. negative: oriented x 3, agitated, anxious Behavior/Eye Contact/Speech: good eye contact, other (tearful). negative: avoids eye contact, refused to answer, threatening eye contact Thoughts/Hallucinations: no apparent hallucination, other (pt is confused and asked sister to call mother, mother recently). negative: grandiose, obsessive, paranoid HENMT: normocephalic/atraumatic, moist mucous membranes, normal ENT inspection Neck: non-tender, full range of motion, supple Respiratory: chest non-tender, lungs clear, normal breath sounds Cardiovascular: normal peripheral pulses, regular rate, rhythm Abdominal Exam: normal bowel sounds, non tender, soft Lymphatic: no adenopathy Back Exam: normal inspection, no CVA tenderness, no vertebral tenderness Extremity: normal range of motion, pedal edema. negative: normal gait, no pedal edema, calf tenderness Integumentary: normal color, normal turgor, warm/dry Progress - PLAN OF CARE/RESULTS Progress/Plan/Lab Results: Bedside Urine ED: Urine Bedside Start: 01/06/19 11:47 Freq: Status: Complete Protocol: Activity Type Activity Date Activity User E-Sign Co-Sign Detail Recorded Client Recorded Date Recorded By Document 01/06/19 11:48 [id number] 01/06/19 11:48 [id number] Edit Status 01/06/19 17:53 [id number] Active=>Complete [id number] 01/06/19 17:53 [id number] 01/06/19 11:48 Point of Care [Bedside Point of Care] -Lot # [id number] - Results Negative -Control Line Visible? Yes Laboratory Results - last 24 hr 01/06/19 11:25 TSH 1.78 Orders Category Date Time Status Admit - [facility] Routine AdmDCTranf 01/06/19 16:58 Active Admit - [facility] Routine AdmDCTranf 01/06/19 18:07 Active Activity - Bed Rest with BRP ORDERED Care 01/06/19 18:07 Active Activity - Strict Bedrest ORDERED Care 01/06/19 16:58 Active Apply Mechanical Device [QM] ORDERED Care 01/06/19 18:07 Active Call Admitting on Arrival AT ADMISSION Care 01/06/19 17:00 Completed Cardiac Monitoring DIRECTED Care 01/06/19 11:09 Completed FSBS/Accucheck Result AC + HS Care 01/06/19 17:05 Active Duncan Cath Insertion ORDERED Care 01/06/19 11:13 Completed Intake and Output-Strict ORDERED Care 01/06/19 18:07 Active Neurological Check ORDERED Care 01/06/19 18:07 Active Neurological Check Q4H Care 01/06/19 17:01 Active Resuscitation Status Routine Care 01/06/19 16:58 Ordered Saline Loc DIRECTED Care 01/06/19 16:58 Completed Saline Loc NOW Care 01/06/19 11:10 Completed Update & Confirm Home Medicati ROUTINE Care 01/06/19 18:07 Completed Vital Signs Order Q 4-HR ASSESS Care 01/06/19 16:58 Completed Vital Signs Order Q 8-HR ASSESS Care 01/06/19 18:07 Active Z-Document. for Tele Applied ORDERED Care 01/06/19 17:01 Completed Z-Document. for Tele Applied ORDERED Care 01/06/19 18:07 Completed Diabetic Diet Diet 01/06/19 12:30 Completed Diabetic Diet Diet 01/06/19 17:20 Completed CHEST-1 VIEW [RAD] Stat Exams 01/06/19 11:[address] HEAD W/O CONTRAST [CT] Stat Exams 01/06/19 11:13 Completed ABG [RESP] Routine Lab 01/06/19 11:47 Completed ACETONE SERUM [CHEM] Stat Lab 01/06/19 10:25 Completed AMMONIA [CHEM] Stat Lab 01/06/19 11:25 Completed BLOOD CULTURE [BLDCUL] Stat Lab 01/06/19 11:49 Results CBC WITH ELECTRONIC DIFF [HEME] Stat Lab 01/06/19 11:25 Completed CK PROFILE [SP CHEM] Stat Lab 01/06/19 11:25 Completed COMPREHENSIVE METABOLIC PANEL [CHEM] Routine Lab 01/07/19 05:41 Completed COMPREHENSIVE METABOLIC PANEL [CHEM] Stat Lab 01/06/19 10:[address] Stat Lab 01/06/19 11:51 Completed FREE T4 Stat Lab 01/06/19 11:[address] Stat Lab 01/06/19 11:51 Completed LACTATE, PLASMA [CHEM] Stat Lab 01/06/19 11:38 Completed MAGNESIUM [CHEM] Routine Lab 01/07/19 05:41 Completed MAGNESIUM [CHEM] Stat Lab 01/06/19 10:25 Completed PRO B-NATRIURETIC PEPTIDE Stat Lab 01/06/19 11:25 Completed TROPONIN T Stat Lab 01/06/19 10:25 Completed TSH Routine Lab 01/06/19 11:[address] W/POSS RFLX CULT [URINALYSIS] Stat Lab 01/06/19 11:40 Completed URINE DRUG SCREEN PL Stat Lab 01/06/19 11:40 Completed Acetaminophen [Tylenol] Med 01/06/19 16:58 Active 650 mg PO Q6H PRN PRN Hydrocodone/APAP 5 mg/325 mg [[place]-5] Med 01/06/19 16:58 Discontinued 1 each PO NOW ONE Insulin Lispro ([place]) [Humalog ([place])] Med 01/06/19 21:00 Active See Protocol SUBQ 0700,1100,1600,2100 Ketorolac [Toradol] Med 01/06/19 13:54 Discontinued 15 mg IV NOW ONE LISINOpril [Prinivil] Med 01/06/19 13:58 Discontinued 20 mg PO NOW ONE Metoprolol [Lopressor] Med 01/06/19 13:57 Discontinued 5 mg IV NOW ONE Metoprolol [Lopressor] 10 mg Med 01/06/19 13:53 Discontinued 0.9% Sodium Chloride Inj [Ns] 50 ml IV NOW Ondansetron [Zofran] Med 01/06/19 13:54 Discontinued 4 mg IV NOW ONE Ondansetron [Zofran] Med 01/06/19 16:58 Discontinued 4 mg IV Q4H PRN PRN Ondansetron [Zofran] Med 01/06/19 18:07 Active 4 mg IV Q4H PRN PRN Telemetry [OM.EQ] Routine Oth 01/06/19 16:58 Active Telemetry [OM.EQ] Routine Oth 01/06/19 18:07 Active EKG [EKG] Stat Ther 01/06/19 11:10 Draft Transfer/Admit Order [TRANSFER] Routine Transfer 01/06/19 17:01 Completed Result Diagrams: 01/07/19 05:41 01/07/19 05:41 - REASSESSMENT Reassessment #1 Time Reassessed: 13:32 (pts bp was 172.105 when checked again) Status: unchanged Reassessment #2 Time Reassessed: 14:12 Status: unchanged (GENERALIZED PAIN BUT FLU TESTS NEG, SINGLE APNEIC APEARING EPISODE HERE IN er. CK AND MB ELEV BUT TROPONIN NL.) - EKG 1 Time of EKG reading by physician:: 11:45 EKG Read and Signed by:: Yogi Alvares EKG Interpretation (*Must complete 3 of following elements*): Normal Rate: 92 Rhythm: NSR [place]: normal QRS: normal ME Interval: normal ST Wave: normal Departure - Departure Date of Disposition Decision: 01/06/19 Time of Disposition Decision: 14:13 DIAGNOSIS: Altered mental status, unspecified, Apneic episode, Tachycardia, Hypertension, Elevation of cardiac enzymes Disposition: ADMITTED INPATIENT 09 Certified Medical Emergency: Emergent Condition: Stable - Critical Care Note This patient required my direct & personal management of CC.: Yes Total Time (mins): 30 Critical Care Statement: This patient required my direct personal management to treat or rule out processes, the absence of which, could potentiallly result in sudden, clinically significant life or limb threatening deterioration. Attestation - Physician/ SHERRON Attestation Patient care was provided by Advanced Practice Provider:: No The physician spent face to face time with patient:: Yes Advanced Practice Provider documentation review:: Supervising physician onsite and consulted in the evaluation and care of this patient. The physician did have a face to face encounter with the patient. This chart was documented by the indicated scribe, (Sara Staton, [place]) and accurately reflects the services I performed and decisions made by me, Yogi Alvares MD, as attested by the provider's signature.
[2019-01-07] MEDS: ELAVIL PO SCH (21:04)
--- NOTE | 2019-01-08 00:25 | PROGRESS NOTE ---
DATE: 01/07/2019 SUBJECTIVE: Patient notes that she is feeling better. States, however, she is hurting all over. She is tired and fatigued, but her mental status seems to be improved. PHYSICAL EXAMINATION: Vital Signs: Temperature 97 degrees, pulse 80, respiratory 20, BP 136/75. General: Patient is awake, alert. She is currently in no respiratory distress. She appears alert and oriented. HEENT: Normocephalic. Neck: Supple. Cardiovascular: Regular rate. No murmurs. Chest: Clear and unlabored. No wheezing. Abdomen: Soft, nondistended, nontender. No masses. Extremities: Moves all extremities. No edema. Neurologic: No focal neurological changes. She appears awake, alert, oriented. Does not appear confused at the moment. ASSESSMENT: 1. Acute delirium, appears resolved. 2. Hypertension. 3. Mild rhabdomyolysis. 4. Diabetes type 2. PLAN: We will continue patient in the hospital today. We will continue to follow. Certainly think that her mental status changes had a large component of anxiety. We will continue to follow. Hopefully home this afternoon or tomorrow. cc: Chico Cassidy MD
[2019-01-08] MEDS: NORCO-7.5 PO PRN ×2 (04:58→10:48)
[2019-01-08] MEDS: NS 1,000 ML IV SCH (04:58)
[2019-01-08 05:34] VITALS: BP 134/81
[2019-01-08] MEDS: HUMALOG (PARKWAY) SUBQ SCH ×2 (08:03→12:17)
[2019-01-08] MEDS: PRINIVIL PO SCH (10:30)
[2019-01-08] MEDS: FLEXERIL PO SCH (10:30)
[2019-01-08] MEDS: FERROUS SULFATE PO SCH (10:30)
[2019-01-08] MEDS: FOLIC ACID PO SCH (10:30)
[2019-01-08] MEDS: PAXIL PO SCH (10:30)
[2019-01-08] MEDS: BUSPAR PO SCH (10:31)
[2019-01-08] MEDS: ZOFRAN IV PRN (10:48)
--- NOTE | 2019-01-08 22:03 | DISCHARGE SUMMARY ---
ADMISSION DATE: 01/06/2019 DISCHARGE DATE: 01/08/2019 DIAGNOSES: 1. Acute delirium resolved. 2. Hypertension. 3. Mild rhabdomyolysis resolved. 4. Diabetes mellitus type 2. 5. Anxiety. DIAGNOSTICS: 1. Chest x-ray revealed a negative exam, lungs are normally expanded and clear, heart size and mediastinal contours are normal. No pneumothorax or pleural effusion. 2. CT of the head revealed no evidence of acute disease. 3. Microbiology. Throat culture revealed no group A strep isolated. 4. Blood cultures x2 revealed no growth after 48 hours. HOSPITAL COURSE: Ms Nixon presented to the hospital with altered mental status after being found unresponsive by her sister. Thankfully this has resolved. She is back to her normal mental status. She does report that she and her sister both have a history of passing out, she did state that her spells of passing out started after her mom got sick and they continued after her mom . Her blood pressures were elevated on admission. There was a question about when she had actually had taken her blood pressure medications. We did continue her medications as were prescribed and blood pressures have been in the 130s to 140s over 60s to 80s. Blood sugars have been in the 80s to 100s. Her CPK on admission was 215 and is decreased to 159. She has had no further complaints nor she has had no further passing out spells and thankfully she is ready to be discharged. PHYSICAL EXAM: Discharge Vital Signs: Blood pressure 134/81 with a heart rate of 90, respirations 20, temperature is 98.1 degrees with room air saturations 99%. Cardiovascular: Regular rate and rhythm. S1 and S2 appreciated. She has peripheral pulses palpable x4 extremities. Pulmonary: Breath sounds clear with no increased work of breathing noted. Gastrointestinal: Abdomen soft, nontender, nondistended with bowel sounds in all 4 quadrants. Neurologic: She is alert and oriented with cranial nerves 2-12 grossly intact. DISCHARGE MEDICATIONS: 1. Amitriptyline 10 mg p.o. at bedtime. 2. BuSpar 10 mg p.o. daily. 3. Clonidine 0.1 p.o. p.r.n. as directed. 4. Cyclobenzaprine 10 mg p.o. daily. 5. Vitamin D2 50,000 units as directed. 6. Ferrous sulfate 1 tab b.i.d. 7. Folic acid 1 mg daily. 8. Lisinopril 10 mg daily. 9. Paroxetine 20 mg daily. 10. Prednisone 20 mg daily. 11. Metformin 1000 mg p.o. b.i.d. FOLLOWUP: She needs to follow up with her primary care provider within the next week. She has been is instructed to call to schedule an appointment. She has been instructed to call to be seen sooner or return to the ER for any syncope, dizziness, chest pain, palpitations , any nausea, vomiting, diarrhea, constipation, black or bloody vomitus or stools, or for any questions or concerns that she may have, any hematuria, dysuria, frequency, urgency. She is being discharged home in stable condition with family members. TIME SPENT: Greater than 30 minutes. Dictated by DAVID Babcock for Chico Cassidy MD This chart was documented by, DAVID Babcock and accurately reflects the services performed, treatment plan and medical decisions as attested by the providers signature Chico Cassidy MD. cc: DAVID Babcock MD [facility]
--- NOTE | 2019-01-09 19:02 | DISCHARGE SUMMARY ---
ADMISSION DATE: 01/06/2019 DISCHARGE DATE: 01/08/2019 ADDENDUM: Patient seen examined by myself, full note dictated and discussed with nurse practitioner. On discharge patient is awake, alert, oriented. She is in no current respiratory distress. HEENT normocephalic. Neck supple. CV regular rate. She will be discharged home. She will follow up outpatient with her primary care. Please see full note. cc: Chico Cassidy MD
== END 2019-01-08 11:52 | disposition home or self-care (01) | DRG 948 ==
LOC: P.ED 10:45 → P.MEDSURG 17:47
PROVIDERS: ATTEND Family Medicine
CPT/HCPCS: 51702; 70450; 71010; 71045; 80053; 80104; 80301; 80305; 81001; 81025; 82009; 82140; 82550; 82553; 82805; 82948; 83605; 83735; 83880; 84439; 84443; 84484; 85025; 87040; 87081; 87275; 87276; 87430; 87804; 93005; 96374; 96375; 99285; A9270; G0431; G0434; G0477; J1885; J2405; J7030; XXXXX

== ENCOUNTER 2019-10-12 11:30 | Inpatient (IN) ==
--- NOTE | 2019-10-12 12:01 | Diag Imaging Result Doc PS360 ---
EXAM: CT HEAD W/O CONTRAST INDICATION: STROKE LIKE SYMPTOMS TECHNIQUE: This exam was performed using automated exposure control, adjustment of mA or kV according to patient size, and/or use of iterative reconstruction technique. COMPARISON: 01/06/2019 FINDINGS: There is no definite acute infarct given the limited sensitivity of CT versus MRI. There is no discrete intracranial mass, mass effect, or intracranial hemorrhage. The surrounding soft tissues and bony structures are essentially unremarkable. IMPRESSION: No evidence of acute intracranial pathology. Electronically signed by Bolivar Staton 10/12/2019 11:59 AM
[2019-10-12] MEDS ORDERED: NS 1,000 ML IV PRN (12:42)
[2019-10-12] MEDS ORDERED: ASPIRIN PO ONE (12:45)
[2019-10-12 14:08] LABS: URINE SOURCE CLEAN CATCH
[2019-10-12 14:13] LABS: UR EPITHELIAL CELLS <10 /HPF (<10); URINE BACTERIA NEGATIVE /HPF; URINE RBC TNTC /HPF (<10); URINE WBC <10 /HPF (<10)
[2019-10-12 14:16] LABS: BASO# 0.02 X1000 (0.0-0.2); BASO% 0.3 % (0.0-0.8); EOS# 0.05 X1000 (0.0-0.7); EOS% 0.7 % (0.0-10.0); HEMATOCRIT 39.5 % (37.0-47.0); HEMOGLOBIN 13.3 g/dL (12.0-16.0); LYMPH# 2.09 X1000 (1.2-3.4); LYMPH% 27.6 % (20.5-51.1); MCH 28.3 PG (27-31); MCHC 33.7 g/dL (33-37); MONO# 0.27 X1000 (0.11-0.59); MONO% 3.6 % (1.7-9.3); MPV 10.3 FL (7.4-10.4); NEUT# 5.15 X1000 (1.4-6.5); NEUT% 67.8 % (42.2-75.2); PLT 289 X1000 (130-400); WBC 7.58 X1000 (4.8-10.8)
[2019-10-12 14:17] LABS: BILIRUBIN URINE NEGATIVE (NEGATIVE); BLOOD URINE LARGE (NEGATIVE); COLOR BROWN; GLUCOSE URINE NEGATIVE (NEGATIVE); KETONE URINE NEGATIVE (NEGATIVE); LEUKOCYTES URINE TRACE (NEGATIVE); NITRITE URINE NEGATIVE (NEGATIVE); PH URINE 6.5; PROTEIN URINE 50 mg/dL (NEGATIVE); SP GRAVITY URINE 1.008; TURBIDITY URINE HAZY (CLEAR); UROBILINOGEN URINE NORMAL (NORMAL)
[2019-10-12 14:19] LABS: INR 0.97; PROTIME 12.9 Seconds (11.0-16.0)
[2019-10-12 14:20] LABS: PTT 31.7 Seconds (22.3-41.8)
[2019-10-12 14:29] LABS: AGAP 14; ALB/GLOB RATIO 1.3; ALBUMIN 4.4 g/dL (3.5-5.0); ALKALINE PHOSPHATASE 58 U/L (32-104); BUN 7 mg/dL (8-22); CALCIUM 9.6 mg/dL (8.8-10.2); CHLORIDE 101 mmol/L (98-107); COSMO 275; CREATININE 0.6 mg/dL (0.5-0.9); ESTIMATED GFR > 60; GLUCOSE 88 mg/dL (70-104); GOT 18 U/L (10-30); GPT 21 U/L (10-36); POTASSIUM 4.4 mmol/L (3.5-5.1); SODIUM 139 mmol/L (136-145); TCO2 24 mmol/L (25-35); TOTAL BILIRUBIN 0.31 mg/dL (0.20-1.00); TOTAL PROTEIN 7.8 g/dL (6.3-8.3)
[2019-10-12 14:53] LABS: UR AMPHETAMINES QUAL NONE DETECTED (NONE DETECT); UR BARBITUATES QUAL NONE DETECTED (NONE DETECT); UR BENZODIAZEPIN QUAL NONE DETECTED (NONE DETECT); UR OPIATES QUAL PRESUMPTIVE POSITIVE (NONE DETECT)
[2019-10-12 14:54] LABS: UR CANNABINOIDS QUAL NONE DETECTED (NONE DETECT); UR COCAINE QUAL NONE DETECTED (NONE DETECT); UR METHADONE QUAL NONE DETECTED (NONE DETECT); UR OXYCODONE QUAL NONE DETECTED (NONE DETECT); UR PCP QUAL NONE DETECTED (NONE DETECT)
--- NOTE | 2019-10-12 15:03 | EKG Report ---
Test Performed on : 10/12/2019 1:51:42 PM Test Reason : Stroke like symptoms Blood Pressure : / mmHG Vent. Rate : 087 BPM Atrial Rate : 087 BPM P-R Int : 176 ms QRS Dur : 064 ms QT Int : 364 ms P-R-T Axes : 045 036 007 degrees QTc Int : 438 ms Normal sinus rhythm. Cannot rule out Anterior infarct , age undetermined Abnormal ECG When compared with ECG of 22-JUL-2019 11:05, No significant change was found Unconfirmed Result
--- NOTE | 2019-10-12 15:17 | Diag Imaging Result Doc PS360 ---
EXAM: CHEST-PORTABLE INDICATION: stroke like symptoms TECHNIQUE: One view COMPARISON: 07/22/2019 FINDINGS: The lungs are grossly clear. There is no discrete pleural fluid collection or pneumothorax. The cardiomediastinal silhouette and central vasculature are grossly unremarkable. IMPRESSION: No evidence of acute pathology by plain radiograph. Electronically signed by Bolivar Staton 10/12/2019 3:15 PM
--- NOTE | 2019-10-12 15:45 | PROVIDER DOCUMENTATION ---
This chart was entered by Ira Lam Scribe, acting as scribe for Antonio Britt MD. HPI-Neurological Disorder - General Stated Complaint: STROKE LIKE SYMPTOMS Time Seen by Provider: 10/12/19 12:36 Source: patient Allergies/Adverse Reactions: Patient Allergies Allergy/AdvReac Type Severity Reaction Status Date / Time No Known Allergies Allergy Verified 04/22/19 12:38 Home Medications: Home Medication List Medication Instructions Recorded Confirmed Last Taken Type Lisinopril 20 mg PO DAILY 01/15/17 10/12/19 04/12/19 08:00 History Ferrous Sulfate 1 tab PO DAILY 04/11/17 10/12/19 04/12/19 08:00 History Folic Acid 1 mg PO DAILY 07/06/17 10/12/19 04/12/19 08:00 History Amitriptyline HCl 10 mg PO HS 01/06/19 10/12/19 Unknown History Buspirone HCl 10 mg PO DAILY 01/06/19 10/12/19 04/12/19 08:00 History Ergocalciferol (Vitamin D2) 50,000 unit PO MO 01/06/19 10/12/19 04/12/19 21:00 History [Vitamin D2] Prednisone 20 mg PO DAILY 01/06/19 10/12/19 04/12/19 08:00 History Metformin HCl 1,000 mg PO BID 04/08/19 10/12/19 04/12/19 21:00 History Sulindac 150 mg PO BID 04/08/19 10/12/19 04/12/19 21:00 History - History of Present Illness-Neuro Nature of Presenting Problem: Patient is a 34 year old female who presents to the ED via EMS with stroke like symptoms. Patient states abnormal speech and numbness to left side face, left arm and left leg. Report pain to back and right leg. RN states EMS stated symptoms started 2 days ago. Patient denies injury or fall. Severity: reports: moderate Onset/Duration: reports: 2 days ago Timing: reports: still present, getting worse Context: reports: impaired speech (aphasia), other (altered sensation) Character of Altered Mental Status: reports: N/A Character of Deficits: reports: altered sensation, impaired speech (aphasia) New weakness or altered sensation location:: reports: LUE, LLE, left facial Associated Symptoms: reports: neck/back pain (back pain), other (right leg pain) Similar Symptoms Previously?: Yes Recently seen or treated by another doctor?: No Review of Systems - Adult - REVIEW OF SYSTEMS - ADULT ROS:: limited per condition Constitutional: reports: no symptoms reported Eyes: reports: no symptoms reported Ears, Nose, Mouth & Throat: reports: no symptoms reported Cardiovascular: reports: no symptoms reported Respiratory: reports: no symptoms reported Gastrointestinal: reports: no symptoms reported Genitourinary: reports: no symptoms reported Musculoskeletal: reports: no symptoms reported Integumentary: reports: no symptoms reported Neurological: reports: see HPI, numbness (left side face, left arm and left leg) , other (aphasia) Psychiatric: reports: no symptoms reported Endocrine: reports: no symptoms reported Hematologic/Lymphatic: reports: no symptoms reported Allergic/Immunologic: reports: no symptoms reported All Other Systems: Reviewed and Negative Past History - Adult - PAST MEDICAL HISTORY-ADULT Review of Records: reports: Old Records Reviewed, Nursing Assessment Review, Medications Reviewed, Social history reviewed & non-contributory. Major Childhood Illnesses: reports: history unknown Cardiovascular: reports: HTN Respiratory: reports: denies history Gastrointestinal: reports: denies history Obstetrical/Gynecological: reports: denies history Genitourinary: reports: denies history Musculoskeletal: reports: arthritis Neurological: reports: CVA Endocrine/Immune: reports: Diabetes Other Conditions: reports: denies history Additional History: auto immune inflammatory disease - PRIOR SURGERIES/PROCEDURES Surgical/Procedure History: reports: reviewed, not pertinent - IMMUNIZATION STATUS Childhood Immunizations: See Nurse Assessment Flu Vaccine: See Nurse Assessment - FAMILY HISTORY Family History: reviewed, not pertinent - SOCIAL HISTORY Smoking: cigarettes (former) Substance Use: denies Physical Exam- Neurological - Physical Exam-Neuro Initial Vital Signs Reviewed: Yes General Appearance: alert, no apparent distress. negative: lethargic Eye Exam: bilateral eye: normal inspection HENMT: normocephalic/atraumatic, moist mucous membranes. negative: angioedema Head Injury: no evidence of injury. negative: active bleeding, lacerations Respiratory: chest non-tender, lungs clear, normal breath sounds. negative: crackles, stridor Cardiovascular: normal peripheral pulses, regular rate, rhythm. negative: tachycardia Abdominal Exam: normal bowel sounds, non tender, soft. negative: rebound Extremity: normal inspection. 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 negative: facial droop Motor/Sensory: no motor deficit, sensory deficit (LLE, LUE and left side face). negative: weak motor strength LUE, weak motor strength LLE Neurologic: aphasia (expressive), sensory deficit (LLE, LUE and left side face). negative: motor weakness Integumentary: normal color, normal turgor, warm/dry. negative: jaundice, rash Psych/Mental Status: tearful. negative: normal mood/affect, anxious Progress - PLAN OF CARE/RESULTS Progress/Plan/Lab Results: Vital Signs - 8 hr 10/12/19 11:36 10/12/19 12:36 10/12/19 12:45 Temperature 97.9 F Pulse Rate 105 H 107 H 101 H Respiratory Rate 18 17 24 Blood Pressure 178/112 151/118 O2 Sat by Pulse Oximetry 98 97 98 10/12/19 13:00 10/12/19 13:01 10/12/19 13:15 Temperature Pulse Rate 86 93 H 92 H Respiratory Rate 21 18 17 Blood Pressure 147/98 O2 Sat by Pulse Oximetry 98 97 100 10/12/19 13:30 10/12/19 13:40 10/12/19 13:45 Temperature Pulse Rate 85 91 H 87 Respiratory Rate 18 23 21 Blood Pressure 154/100 O2 Sat by Pulse Oximetry 100 99 97 10/12/19 14:00 10/12/19 14:01 10/12/19 14:15 Temperature Pulse Rate 98 H 91 H 92 H Respiratory Rate 12 18 21 Blood Pressure 148/90 O2 Sat by Pulse Oximetry 98 99 97 10/12/19 14:30 10/12/19 14:31 10/12/19 14:45 Temperature Pulse Rate 94 H 91 H 93 H Respiratory Rate 14 19 20 Blood Pressure 145/97 O2 Sat by Pulse Oximetry 98 100 100 10/12/19 15:00 10/12/19 15:01 10/12/19 15:15 Temperature Pulse Rate 90 85 90 Respiratory Rate 17 20 20 Blood Pressure 158/86 O2 Sat by Pulse Oximetry 99 99 99 Laboratory Results - last 24 hr 10/12/19 10/12/19 10/12/19 13:15 13:20 13:20 WBC RBC Hgb Hct MCV MCH MCHC RDW Std Deviation Plt Count MPV Immature Gran % (Auto) Neut % (Auto) Lymph % (Auto) [place] % (Auto) Eos % (Auto) Baso % (Auto) Immature Gran # (Auto) Neut # (Auto) Lymph # (Auto) [place] # (Auto) Eos # (Auto) Baso # (Auto) PT INR PTT ([place] FS) Sodium Potassium Chloride Carbon Dioxide Anion Gap BUN Creatinine Estimated GFR/1.73 m2 BUN/Creatinine Ratio Glucose POC Glucose 84 Calculated Osmolality Calcium Total Bilirubin AST ALT Alkaline Phosphatase Troponin T Total Protein Albumin Globulin Albumin/Globulin Ratio Urine Source CLEAN CATCH Urine Color BROWN Urine Turbidity HAZY Urine pH 6.5 Ur Specific [place] 1.008 Urine Protein 50 A Ur Glucose (Stick) NEGATIVE Ur Ketones (Stick) NEGATIVE Urine Blood LARGE A Urine Nitrite NEGATIVE Urine Bilirubin NEGATIVE Urobilinogen Dipstick NORMAL Urine Leukocytes TRACE A Urine WBC (Auto) <10 Urine RBC (Auto) TNTC A U Epithel Cells (Auto) <10 Urine Bacteria (Auto) NEGATIVE Urine Opiates Screen PRESUMPTIVE POSITIVE A Ur Oxycodone Screen NONE DETECTED Ur Methadone, Qual NONE DETECTED Ur Barbiturates Screen NONE DETECTED Ur Phencyclidine Scrn NONE DETECTED Ur Amphetamines Screen NONE DETECTED U Benzodiazepines Scrn NONE DETECTED Urine Cocaine Screen NONE DETECTED U Cannabinoids Screen NONE DETECTED 10/12/19 10/12/19 10/12/19 13:35 13:35 13:35 WBC 7.58 RBC 4.70 Hgb 13.3 Hct 39.5 MCV 84.0 MCH 28.3 MCHC 33.7 RDW Std Deviation 13.0 Plt Count 289 MPV 10.3 Immature Gran % (Auto) 0.0 Neut % (Auto) 67.8 Lymph % (Auto) 27.6 [place] % (Auto) 3.6 Eos % (Auto) 0.7 Baso % (Auto) 0.3 Immature Gran # (Auto) 0.00 Neut # (Auto) 5.15 Lymph # (Auto) 2.09 [place] # (Auto) 0.27 Eos # (Auto) 0.05 Baso # (Auto) 0.02 PT 12.9 INR 0.97 PTT (Actin FS) 31.7 Sodium 139 Potassium 4.4 Chloride 101 Carbon Dioxide 24 L Anion Gap 14 BUN 7 L Creatinine 0.6 Estimated GFR/1.73 m2 > 60 BUN/Creatinine Ratio 12 Glucose 88 POC Glucose Calculated Osmolality 275 Calcium 9.6 Total Bilirubin 0.31 AST 18 ALT 21 Alkaline Phosphatase 58 Troponin T Total Protein 7.8 Albumin 4.4 Globulin 3.4 Albumin/Globulin Ratio 1.3 Urine Source Urine Color Urine Turbidity Urine pH Ur Specific [place] Urine Protein Ur Glucose (Stick) Ur Ketones (Stick) Urine Blood Urine Nitrite Urine Bilirubin Urobilinogen Dipstick Urine Leukocytes Urine WBC (Auto) Urine RBC (Auto) U Epithel Cells (Auto) Urine Bacteria (Auto) Urine Opiates Screen Ur Oxycodone Screen Ur Methadone, Qual Ur Barbiturates Screen Ur Phencyclidine Scrn Ur Amphetamines Screen U Benzodiazepines Scrn Urine Cocaine Screen U Cannabinoids Screen 10/12/19 13:35 WBC RBC Hgb Hct MCV MCH MCHC RDW Std Deviation Plt Count MPV Immature Gran % (Auto) Neut % (Auto) Lymph % (Auto) [place] % (Auto) Eos % (Auto) Baso % (Auto) Immature Gran # (Auto) Neut # (Auto) Lymph # (Auto) [place] # (Auto) Eos # (Auto) Baso # (Auto) PT INR PTT ([place] FS) Sodium Potassium Chloride Carbon Dioxide Anion Gap BUN Creatinine Estimated GFR/1.73 m2 BUN/Creatinine Ratio Glucose POC Glucose Calculated Osmolality Calcium Total Bilirubin AST ALT Alkaline Phosphatase Troponin T < 0.010 Total Protein Albumin Globulin Albumin/Globulin Ratio Urine Source Urine Color Urine Turbidity Urine pH Ur Specific [place] Urine Protein Ur Glucose (Stick) Ur Ketones (Stick) Urine Blood Urine Nitrite Urine Bilirubin Urobilinogen Dipstick Urine Leukocytes Urine WBC (Auto) Urine RBC (Auto) U Epithel Cells (Auto) Urine Bacteria (Auto) Urine Opiates Screen Ur Oxycodone Screen Ur Methadone, Qual Ur Barbiturates Screen Ur Phencyclidine Scrn Ur Amphetamines Screen U Benzodiazepines Scrn Urine Cocaine Screen U Cannabinoids Screen Orders Category Date Time Status Cardiac Monitoring DIRECTED Care 10/12/19 12:42 Active Finger Stick Blood Sugar (ED) DIRECTED Care 10/12/19 12:42 Active Oxygen Therapy- ED Nursing DIRECTED Care 10/12/19 12:42 Active Saline Loc NOW Care 10/12/19 12:42 Active CHEST-PORTABLE [RAD] Stat Exams 10/12/19 12:[address] HEAD W/O CONTRAST [CT] Stat Exams 10/12/19 11:33 Completed MRI BRAIN W/WO CONTRAST [MRI] Stat Exams 10/12/19 16:15 Completed CBC WITH ELECTRONIC DIFF [HEME] Stat Lab 10/12/19 13:35 Completed COMPREHENSIVE METABOLIC PANEL [CHEM] Stat Lab 10/12/19 13:35 Completed PROTIME WITH INR [COAG] Stat Lab 10/12/19 13:35 Completed PTT [COAG] Stat Lab 10/12/19 13:35 Completed TROPONIN T Stat Lab 10/12/19 13:35 Completed URINALYSIS W/POSS RFLX CULT [URINALYSIS] Stat Lab 10/12/19 13:20 Completed URINE CULTURE [RM] Routine Lab 10/12/19 13:20 Received URINE DRUG SCREEN Stat Lab 10/12/19 13:20 Completed 0.9% Sodium Chloride Inj [Ns] 1,000 ml Med 10/12/19 12:42 Active IV 250 mls/hr Aspirin Med 10/12/19 12:45 Discontinued 325 mg PO NOW ONE EKG [EKG] Stat Ther 10/12/19 12:42 Draft 1730 - Dr. Britt consulted with [facility] about patient. Transfer center states they will page Dr. Warren. Result Diagrams: 10/12/19 13:35 10/12/19 13:35 - EKG 1 Time of EKG reading by physician:: 13:51 EKG Read and Signed by:: Antonio Britt EKG Interpretation (*Must complete 3 of following elements*): Abnormal Rate: 87 Rhythm: normal sinus rhythm [place]: normal [place] Interval: normal Comments: cannot rule out anterior infarct, age undetermined - XRAY 1 XRAY Study: Chest Impression: See EMR Report ( EXAM: CHEST-PORTABLE INDICATION: stroke like symptoms TECHNIQUE: One view COMPARISON: 07/22/2019 FINDINGS: The lungs are grossly clear. There is no discrete pleural fluid collection or pneumothorax. The cardiomediastinal silhouette and central vasculature are grossly unremarkable. IMPRESSION: No evidence of acute pathology by plain radiograph. Electronically signed by Bolivar Staton 10/12/2019 3:15 PM 10/12/191514 Interpreting Physician: Bolivar Staton MD Dictated Date/Time: 10/12/191514 cc: Antonio Britt MD; Lito Sheets MD) - CT/MRI 1 CT Study: Head Impression: See EMR Report ( EXAM: CT HEAD W/O CONTRAST INDICATION: STROKE LIKE SYMPTOMS TECHNIQUE: This exam was performed using automated exposure cont rol, adjustment of mA or kV according to patient size, and/or use of iterative reconstruction technique. COMPARISON: 01/06/2019 FINDINGS: There is no definite acute infarct given the limited sensitivity of CT versus MRI. There is no discrete intracranial mass, mass effect, or intracranial hemorrhage. The surrounding soft tissues and bony structures are essentially unremarkable. IMPRESSION: No evidence of acute intracranial pathology. Electronically signed by Bolivar Staton 10/12/2019 11:59 AM 10/12/19 1159 Interpreting Physician: Bolivar Staton MD Dictated Date/Time: 10/12/19 1156 cc: Antonio Britt MD; Lito Sheets MD) 2 MRI Study: Brain Impression: See EMR Report ( EXAM: MRI BRAIN W/WO CONTRAST INDICATION: possible stroke COMPARISON: None. FINDINGS: There is no evidence of acute infarct. The deep white matter signal is unremarkable. There is no discrete intracranial mass, mass effect, or intracranial hemorrhage. There is no evidence of abnormal intracranial enhancement. The surrounding soft tissues and bony structures are essentially unremarkable. IMPRESSION: No evidence of acute intracranial pathology and essentially unremarkable, otherwise. Electronically signed by Bolivar Staton 10/12/2019 5:12 PM 10/12/19 1712 Interpreting Physician: Bolivar Staton MD Dictated Date/Time: 10/12/19 1711 cc: Antonio Britt MD; Lito Sheets MD) - CONSULTS/PCP/HOSPITALIST Notification #1 *Consult/PCP/Hospitalist*: [facility] Time Discussed: 12:44 Reason/Comments: Dr. Britt consulted with transfer center Consult Disposition: other (Advised to get MRI brain and to consult him if needed.) #2 Consult: Dr. Warren Time Discussed: 13:07 Reason/Comments: Dr. Britt consulted with Dr. Warren about patient. Consult Disposition: other (Dr. Warren states order an MRI and call back with results.) #3 Consult: DAVID Carranza for Hospitalist Time Discussed: 15:36 Reason/Comments: Dr. Britt consulted with [facility] about patient Consult Disposition: Will see in ED, Admit Departure - Departure Date of Disposition Decision: 10/12/19 Time of Disposition Decision: 15:37 DIAGNOSIS: Ischemic stroke, HTN (hypertension) Disposition: ADMITTED INPATIENT 09 Certified Medical Emergency: Emergent Condition: Fair Referrals and Follow-Ups: Lito Sheets MD [Primary Care Provider] - - Critical Care Note This patient required my direct & personal management of CC.: No Attestation - Physician/ SHERRON Attestation Patient care was provided by Advanced Practice Provider:: No The physician spent face to face time with patient:: Yes Advanced Practice Provider documentation review:: Supervising physician onsite and consulted in the evaluation and care of this patient. The physician did have a face to face encounter with the patient. - NIH Stroke Scale Level of Consciousness: 0-Alert LOC Questions (ask month and age): 0-Answers Both Correctly LOC Commands (ask to open & close eyes;make a fist, let go): 0-Obeys Both Correctly Best Gaze (horizontal eye movement): 0-Normal Visual (use finger movement, counting or visual threat): 0-No Visual Loss Facial Palsy (show teeth or raise eyebrows & close eyes tght: 2-Partial [place] sis Motor Function-left arm: 2-Some Effort Against [place] Motor Function-right arm: 2-Some Effort Against [place] Motor Function-left le-Some Effort Against [place] Motor Function-right le-No Effort Against [place] Limb Ataxia(leigxc-hwul-xigwih, or heel to ornelas): 2-Present in two limbs Sensory(pin prick to face,arms,trunk,legs-compare side/side): 2-Severe to Total Sensory Loss Best Language(name item/read sentence.Ex-Down to [place]): 1-Mild to Moderate Aphasia Dysarthria(Pt read words or say words Ex.Mama,Tip-Top,Thanks: 1-Mild-Mod Slurring Words Extinction and Inattention: 0-Normal NIH Total Score: 17 Modified [place] Score Criteria: 4-moderately severe disability This chart was documented by the indicated scribe, (Ira Lam Scribe) and accurately reflects the services I performed and decisions made by me, Antonio Britt MD, as attested by the provider's signature.
--- NOTE | 2019-10-12 17:14 | Diag Imaging Result Doc PS360 ---
EXAM: MRI BRAIN W/WO CONTRAST INDICATION: possible stroke COMPARISON: None. FINDINGS: There is no evidence of acute infarct. The deep white matter signal is unremarkable. There is no discrete intracranial mass, mass effect, or intracranial hemorrhage. There is no evidence of abnormal intracranial enhancement. The surrounding soft tissues and bony structures are essentially unremarkable. IMPRESSION: No evidence of acute intracranial pathology and essentially unremarkable, otherwise. Electronically signed by Bolivar Staton 10/12/2019 5:12 PM
[2019-10-12] MEDS ORDERED: PROTONIX IV STA (20:57)
[2019-10-12] MEDS ORDERED: SODIUM CHLORIDE 0.9% INJ ONE (20:57)
[2019-10-12] MEDS ORDERED: TYLENOL PO PRN (20:57)
[2019-10-12] MEDS ORDERED: ZOFRAN IV PRN (20:57)
[2019-10-12] MEDS ORDERED: APRESOLINE IV PRN (20:57)
[2019-10-12] MEDS ORDERED: SODIUM CHLORIDE 0.9% INJ SCH (20:57)
[2019-10-12] MEDS ORDERED: LOVENOX SUBQ SCH (20:57)
--- NOTE | 2019-10-12 21:30 | HISTORY AND PHYSICAL ---
REASON FOR ADMISSION: 2 day history of progressively worsening expressive aphasia, right-sided pain, and left-sided weakness. HISTORY OF PRESENT ILLNESS: Ms. Anny Nixon is a 34-year-old woman who comes into the ER with numbness and increased weakness on the left side of her face and left arm and leg. She also developed simultaneous right-sided pain. It is very difficult to get history from this patient because she is aphasic, which is one of her other complaints. All these started 2 days ago and have been getting progressively worse. No family members at bedside to furnish me with further information, but she says that she does have a prior history of left-sided hemiparesis which got a little better, but she has been in a wheelchair since 2016 as a consequence of this. She does have a history of rheumatoid arthritis, morbid obesity, hypertension, and type 2 diabetes. She currently states that she has had a bandlike headache with no visual symptoms or neck stiffness. Most of the communication was through nodding and shaking her head and writing on the board. She denies any fecal or urinary incontinence. CT and MRI of the brain were done and were negative, and Dr. Warren, the neurologist in [place], was contacted and he said the patient can be admitted over at our end. The patient was last admitted here in December 2018 for acute delirium. This resolved by itself spontaneously. Otherwise, patient shakes her head to any cardiorespiratory complaints. She does state that the pain in her right side is sharp, burning, and constant, causing her distress. REVIEW OF SYSTEMS: Limited due to the fact that patient is aphasic. FAMILY HISTORY: No other family members with autoimmune phenomenon. She just did say that her mother of a stroke, however. ALLERGIES: Benadryl. SOCIAL HISTORY: Lives with her sister. Does not smoke, drink, or use drugs. SURGICAL HISTORY: Had excision of axilla on both sides for hidradenitis suppurativa. LABORATORY WORK: White count 7000, hemoglobin and hematocrit 13 and 39, platelets 289,000, normal differential. PT/INR is normal. Chemistry is entirely normal. Troponin is negative. Urinalysis, aws-aufwecyf-vv-count WBCs, RBCs, trace leukocytes. Positive for opioids. HOME MEDICATIONS: 1. Amitriptyline 10 mg at bedtime. 2. BuSpar 10 mg daily. 3. Ferrous sulfate 325 mg daily. 4. Folic acid 1 mg daily. 5. Lisinopril 20 mg daily. 6. Metformin 1000 mg b.i.d. 7. Prednisone 20 mg daily. 8. Sulindac 150 mg b.i.d. 9. Vitamin D 50,000 International Units weekly. Her chest film, CT, MRI of the brain were grossly normal. PHYSICAL EXAMINATION: GENERAL: Morbidly obese, woman who is alert and oriented to person, place, and time, albeit limited and through writing. She has a sad affect. She is crying, depressed mood. NEUROLOGIC: Patient is aphasic, but can say a few words like "momma". I also sense that the patient is not able to show me her teeth. She acted as if she could not, but she could stick out her tongue and move it from side to side. I am not so sure if the patient was trying not to be fully cooperative, or if she was just under distress, but I cannot really find any overt cranial nerve deficits, to say the least. No facial asymmetry. Shoulder shrug is positive. Tongue is midline. Rest of the neurological exam: Patient has somewhat dense hemiplegia on the left side and power is about 1/5 on the left, although she states that 2 days ago she was able to move her fingers. Her left side is hypertonic. She has a clenched hand, i.e. involving the left MCP joints. No joint swelling. No evidence of synovitis. Her right lower extremity: Patient has a rated power of 1/5, and 4/5 on the right upper extremity. EYES: She is anicteric and not pale. ENT: No cyanosis is noted. NECK: Short and thick. No JVD or carotid bruit. No thyromegaly. CHEST: Clear to auscultation. Good air entry in both lung [place]. CARDIOVASCULAR: 1st and 2nd heart sounds heard. No gallops, murmurs, rubs. Rhythm is regular. ABDOMEN: Exam was notable for right upper quadrant tenderness. No rebound or guarding. RECTAL: Exam deferred. EXTREMITIES: No edema, clubbing, or peripheral cyanosis. Pulses distally intact, regular, symmetrical. SKIN: Intact. No breakdown, lesions. MUSCULOSKELETAL: Grossly normal. ASSESSMENT AND PLAN: Expressive aphasia with nonfocal motor deficits. Consider either mononeuritis multiplex due to patient's underlying rheumatoid disease, versus possibility of yet to be defined embolic cerebrovascular accident, versus unspecified autoimmune demyelination disease. We will consult Dr. Guaman and Dr. Eugene for further input. The patient has been on steroids 20 mg daily. She cannot really tell me why. I will convert this to intravenous Solu-Medrol, but not at a high dose because of the potential increased risk of worsening hyperglycemia, which can aggravate ischemic stroke. We will continue aspirin. We will monitor. Will allow for permissive hypertension. Keep patient n.p.o. Consult Speech Therapy. Sugars will be aggressively controlled with Lantus and sliding scale. Will treat patient's pain symptomatically, which I suspect could probably be neuropathic in origin. Order antibody titers, sedimentation rate, amongst other things. CTA head and neck was ordered to rule out cerebral vasculitis. cc: MD Lito Puri MD MTDKelvin
[2019-10-12] MEDS: SOLU-MEDROL IV SCH (21:57)
--- NOTE | 2019-10-12 21:57 | Diag Imaging Result Doc PS360 ---
EXAM: CT ANGIOGRAM HEAD/NECK INDICATION: cerebral vasculitis TECHNIQUE: This exam was performed using automated exposure control, adjustment of mA or kV according to patient size, and/or use of iterative reconstruction technique. Thin section axial images and 3-D MIPS were obtained. COMPARISON: None. FINDINGS: Head: There is no evidence of flow-limiting stenosis, vascular malformation, or cerebral aneurysm involving the arteries comprising the [place] including the anterior, middle, and posterior circulations. The distal ICAs and vertebral arteries are widely patent. The basilar artery appears normal. NECK: The common carotid arteries, internal carotid arteries, and external carotid arteries are widely patent bilaterally with no flow-limiting stenosis, vascular malformation, aneurysm, or dissection. The vertebral arteries are codominant and are patent throughout. IMPRESSION: Grossly normal CTA of the head and neck. Electronically signed by Bolivar Staton 10/12/2019 9:55 PM
[2019-10-12] MEDS: NS 1,000 ML IV SCH (21:59)
[2019-10-12] MEDS: HUMALOG SUBQ SCH (21:59)
[2019-10-12] MEDS: LANTUS INSULIN SUBQ ONE ×2 (22:00→22:01)
[2019-10-12] MEDS: MORPHINE IV PRN (22:40)
[2019-10-13] MEDS: NS 1,000 ML IV SCH (04:45)
[2019-10-13] MEDS: MORPHINE IV PRN ×3 (04:54→17:18)
[2019-10-13 06:33] LABS: BASO# 0.01 X1000 (0.0-0.2); BASO% 0.1 % (0.0-0.8); HEMATOCRIT 37.6 % (37.0-47.0); HEMOGLOBIN 12.8 g/dL (12.0-16.0); IMM GRAN# 0.02 X1000 (0.0-0.04); IMM GRAN% 0.3 % (0.0-0.5); LYMPH# 1.09 X1000 (1.2-3.4); LYMPH% 15.3 % (20.5-51.1); MCH 28.8 PG (27-31); MCV 84.7 FL (81-99); MONO# 0.07 X1000 (0.11-0.59); MPV 10.3 FL (7.4-10.4); NEUT# 5.93 X1000 (1.4-6.5); NEUT% 83.3 % (42.2-75.2); PLT 282 X1000 (130-400); RBC 4.44 XMIL (4.2-5.4); RDW 12.9 % (11.5-14.5); WBC 7.12 X1000 (4.8-10.8)
[2019-10-13] MEDS: HUMALOG SUBQ SCH ×3 (06:50→16:17)
[2019-10-13 07:22] LABS: AGAP 15; ALB/GLOB RATIO 1.1; ALBUMIN 4.3 g/dL (3.5-5.0); ALKALINE PHOSPHATASE 57 U/L (32-104); BUN 7 mg/dL (8-22); CALCIUM 9.2 mg/dL (8.8-10.2); CHLORIDE 101 mmol/L (98-107); CK TOTAL 37 U/L (24-173); COSMO 276; CREATININE 0.6 mg/dL (0.5-0.9); ESTIMATED GFR > 60; GLUCOSE 140 mg/dL (70-104); GOT 18 U/L (10-30); GPT 21 U/L (10-36); MAGNESIUM 1.8 mg/dL (1.5-2.7); POTASSIUM 4.1 mmol/L (3.5-5.1); SODIUM 138 mmol/L (136-145); TCO2 22 mmol/L (25-35); TOTAL BILIRUBIN 0.37 mg/dL (0.20-1.00); TOTAL PROTEIN 8.2 g/dL (6.3-8.3)
[2019-10-13] MEDS ORDERED: LANTUS INSULIN SUBQ SCH (09:00)
[2019-10-13] MEDS ORDERED: ASPIRIN PO SCH (09:00)
--- NOTE | 2019-10-13 11:15 | PROGRESS NOTE ---
DATE: 10/13/2019 SUBJECTIVE: The patient is aphasic. She is not able to tell me anything, just nods her head some to say yes or no. OBJECTIVE: Vital Signs: Temperature is 97.8 degrees, heart rate 105, respiratory rate 16, blood pressure 139/72 O2 saturation is 100% on room air. General: This is a 34-year-old female lying in bed, in no acute distress. Cardiovascular: S1, S2. No murmurs, gallops or rubs. Respiratory: Clear bilaterally to auscultation. No work of breathing or use of accessory muscles. Abdomen: Soft. Nontender to palpation. Bowel sounds present. No organomegaly. Extremities: No clubbing, cyanosis or edema. Peripheral pulses present in both legs. Neurological: The patient apparently is aphasic. The patient has some hemiplegia on the left side. Right upper extremity is 1/5 motor strength. ASSESSMENT AND PLAN: Expressive aphasia with no focal motor deficit. The MRI of the brain and also CT angiogram of the head and neck are completely unremarkable. We will rule out mononeuritis multiplex because the patient has underlying rheumatoid arthritis. We have called Dr. Eugene's office and apparently all of his labs regarding rheumatoid arthritis has been okay. At this point we are awaiting Dr. Guaman's recommendation and we will continue to monitor this patient. The patient is receiving IV steroids but we do not know why she takes p.o. steroids and we will continue to monitor the patient closely. cc: Michael Pineda MD [facility]
[2019-10-13] MEDS: SOLU-MEDROL IV SCH (11:53)
[2019-10-13 15:26] VITALS: BP 141/85
--- NOTE | 2019-10-13 15:54 | CONSULTATION ---
DATE OF CONSULTATION: 10/13/2019 HISTORY OF PRESENT ILLNESS: Ms. Nixon is 34 years old and there is apparent recent onset of difficulty speaking. Neurologic history appears to be complicated, and I do not think I have the details. Based on her report, she had weakness in both legs in 2016. Within a few days, she was noticing weakness in the arms. She reports management at [facility]. Diagnosis was autoimmune problem. She lost bowel and bladder control transiently. Eventually, she had incomplete recovery and continued to be weak in the left limbs. Initially, she had trouble chewing and swallowing and also trouble speaking. Eventually, she recovered ability to chew and swallow uneventfully, and she was speaking well. She does not report associated vision disturbance, altered consciousness, altered awareness. She told me she does not know what part of her body was affected by the autoimmune problem. History seems to vary from one question to the next, but I think she is reporting inability to speak beginning 3 days ago. That has persisted. She has had some headache. She has not had any other new neurologic problem. Workup here includes brain MRI with and without contrast showing nothing remarkable. CT angiogram of the head and neck is reported unremarkable. Urine drug screen was positive for opiates. I do not see prescription for that. She has been afebrile. Heart rate has ranged 80s to 100s. Systolic blood pressure was initially 170s, recently stable 130s-150s. She had blood sugar recorded 140 once, otherwise nothing remarkable on the chemistry profile. On exam, Ms. Nixon is awake, alert, attentive. She communicated using her right hand to write on a white board. Grammar appears normal. She followed simple commands and commands requiring right/left distinction and digit distinction. She did not speak, but she did make some noise. She has full visual farah tested by confrontational finger counting. Extraocular movements are full. Facial motility is good bilaterally. Gag is intact. Tongue is midline. She can hear. Shoulder shrug is a little better on the right than the left. Tone is increased in the left arm and slightly in the left leg. She did well with right [id number]. She demonstrated good strength in the right limbs. She was able to raise her left leg from the bed against gravity. She was inconsistent with effort and raising the left arm, but was able to maintain her left arm elevated against gravity. Her left hand is generally flexed at the fingers and thumb, but there is good range of motion. Plantar response is silent bilaterally. Reflexes 2+ at the left ankle and trace at the right ankle, 1+ at the knees, 1+ at the wrists bilaterally. I did not ask her to stand. Head is unremarkable. There is no evidence of recent trauma. Neck is supple without meningismus. IMPRESSION: 1. Subjective muteness. I am not certain there is an objective deficit with speech or language. I do not find any other language problem. Certainly, she might have "pure word muteness" as a dominant left hemisphere syndrome, but there is nothing to suggest that is present. She could have severe dysarthria and even anarthria, but typically would not have such good tongue and palate movement. 2. 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 Her description sounds like she might have had transverse myelitis. She is not able to provide details of workup, diagnosis or management, but I believe she has been taking immunosuppressant medicine, and I believe she may have rheumatology follow-up. 3. I have requested records from [facility] regarding possible 2016 management. I do not have urgent workup now. Negative imaging of the brain is reassuring. I believe Dr. Eugene has been consulted for Rheumatology evaluation. Thanks for asking Neurology to see Ms. Nixon. cc: Avinash Guaman III, MD
[2019-10-13] MEDS ORDERED: PROTONIX IV SCH (20:15)
--- NOTE | 2019-10-14 20:58 | ECHO REPORT ---
ORDER DATE: 10/12/2019 MEASUREMENTS: 1. Septal thickness 0.9. 2. Left ventricular internal diameter in diastole 4.3. 3. Posterior wall thickness 0.9. 4. Aortic root 2.6. SUMMARY: 1. Very difficult study for interpretation due to very limited acoustic window quality. Intravenous echo contrast agent Optison was utilized to enhance endocardial definition. 2. Aortic valve is trileaflet and opens normally on 2-dimensional images. Peak gradient the across aortic valve is less than 10 mmHg. Mitral and tricuspid valves are without evidence of structural abnormality, while pulmonic valve is not well demonstrated. Aortic root is normal in size. 3. Normal left ventricular dimensions demonstrated. Estimated left ventricular ejection fraction appears to be at least 65%. No regional wall motion abnormalities are evident. Left atrium, right atrium, right ventricle are normal in size with grossly preserved right ventricular systolic function. 4. No pericardial effusion. 5. Inferior vena cava not well demonstrated. cc: MD Rafael Travis MD
--- NOTE | 2019-10-15 13:30 | DISCHARGE SUMMARY ---
ADMISSION DATE: 10/12/2019 DISCHARGE DATE: 10/13/2019 NOTE: This is an [facility] discharge summary. HOSPITAL COURSE: This is a 34-year-old, female, who came to the emergency department complaining of numbness and increased weakness on the left side of her face and left arm as well. She has been aphasic. Because her symptoms were not completely clear we decided to consult Neurology. Also, we performed MRI of the brain with and without contrast which basically did not show any signs of acute intracranial pathology, and also head and neck CTA. The patient was still aphasic upon my examination on day of discharge. I was not completely sure that this was an organic neurological condition or not. The patient, in any case, decided to leave the hospital AMA on that Friday. cc: Michael Pineda MD
== END 2019-10-13 19:15 | disposition left against medical advice (07) | DRG 74 ==
LOC: SUPCPDRO → ED 11:30 → SUATTDRO 20:44 → 2N 20:44
PROVIDERS: ATTEND Internal Medicine